=== PATIENT | female | born 1970 | race African-American/Black ===

== ENCOUNTER 2016-09-14 13:42 | Inpatient (IN) ==
[2016-09-14] MEDS ORDERED: ASPIRIN 325 MG TABLET PO STA (13:55)
[2016-09-14] MEDS ORDERED: NITROGLYCERIN 2% OINT 1 INCH/GM PACK TOP STA (13:55)
[2016-09-14] MEDS ORDERED: CLOPIDOGREL 75 MG TABLET PO STA (13:55)
--- NOTE | 2016-09-14 14:00 | Emergency Department Note ---
Arrival - Arrival Chief Complaint: Chest Pain Stated Complaint: cp ED Nursing Triage Note: Brought in per EMS with c/o mid-sternal chest pain onset prior to arrival while laying on couch. Describes as tightness. Denies shortness of breath or nausea. Reports had 4 stents placed 2 weeks ago at hospital in [place], [place]. Mode of Arrival: Stretcher Source: Patient Time Seen by Provider: 09/14/16 13:55 - History of Present Illness HPI Narrative: This 46-year-old black female presents with complaints of midsternal chest pain not associated with shortness of breath, nausea, vomiting, or diaphoresis. She was given 2 nitroglycerin in the field and is now without any pain. Of note she had a myocardial infarct 2 weeks ago at her home in [place] where she was hospitalized and had 4 stents placed. The events today occurred while she was visiting. She has no prior cardiac disease before 2 weeks ago. Notable since discharge from the hospital is increasing pedal edema but no instances of chest pain until today. Currently she appears medically stable Onset (ago): hour(s) (Patient presents 1 hour post onset of symptoms) Date of Last Menstrual Period: hyst Allergies/Adverse Reactions: Allergies Allergy/AdvReac Type Severity Reaction Status Date / Time levofloxacin [From Levaquin] Allergy Unknown/Unable Verified 09/14/16 13:55 to obtain Penicillins Allergy RASH Verified 07/09/14 08:36 Home Medications: Home Medications Medication Instructions Recorded Confirmed Type Insulin NPH Hum/Reg Insulin Hm 40 units SUBCUT BID 07/09/14 05/07/15 History [Novolin 70-30 100 Unit/ml Vial] Metformin HCl [Glumetza] 500 mg PO BID 07/09/14 05/07/15 History Review of System - Review of System 12 point system: reviewed and no additional remarkable complaints except as stated - Review of System Constitutional: Present: as per HPI Respiratory: Present: as per HPI Cardiovascular: Present: as per HPI Gastrointestinal: Present: as per HPI Medical,Surgical,& Family Hx - Medical History Cardio: History of: CHF, Hypertension, [place] (08/2016) Endocrine: History of: Diabetes Mellitus (IDDM), Dyslipidemia - Surgical History HEENT Surgeries: Surgical HX of: Eye Surgery (02/05/2013) Reproductive Surgeries: Surgical HX of;: Hysterectomy (2006) - Family History Family History: Reports;: Family Cancer, Family Heart Disease, Family Stroke - Social History Smoking Status: Never smoker Frequency of Alcohol Use: None Type of Drug Use: None Exam Physical Examination: GENERAL: Obese black female in no acute distress. HEENT: Normocephalic. No trauma. Moist mucous membranes. EOMI. PERRLA. ENT NML NECK: Supple. No adenopathy. CARDIAC: Regular. No murmurs. Heart rate 90 CHEST: Clear to auscultation. No respiratory distress. O2 sat 99% ABDOMEN: Soft. Nontender. Active bowel sounds. EXTREMITIES: No trauma. Normal ROM. 2+ pedal edema. SKIN: No diaphoresis. No rash. NEURO: Alert. Neuro intact. No focal deficits. Vital Signs: Vital Signs Temperature 97.5 F L 09/14/16 13:42 Pulse Rate 91 H 09/14/16 13:42 Respiratory Rate 18 09/14/16 13:55 Blood Pressure 124/73 09/14/16 13:42 O2 Sat by Pulse Oximetry 99 09/14/16 13:42 Course - Reevaluation(s) Reevaluation #1: Discussed with patient her findings which necessitate hospitalization here. - Consultations Consultation #1: Discussed with hospitalist service who will admit for further evaluation treatment. Results - Labs CBC & BMP: 09/14/16 14:26 09/14/16 14:26 Labs: I have reviewed the laboratory and noted the evidence of anemia as well as a bump in troponins and severely elevated BnP. - Impressions EKG: Sinus rhythm at 90 with normal [place] interval and QRS duration. Evidence of recent anterior WA noted with nonspecific ST changes. No acute injury pattern noted. - Diagnostic Findings Procedure: Chest x-ray: image reviewed by me, report reviewed by me ( Cardiomegaly and pulmonary edema) Disposition Clinical Impression: Abnormal cardiac enzymes, Congestive heart failure, Status post recent WA/stent Case discussed with: patient, patient's family Disposition: Still a Patient Condition: Guarded Time of Disposition: 15:35
[2016-09-14] MEDS ORDERED: NITROGLYCERIN 2% OINT 1 INCH/GM PACK TOP ONE (14:08)
[2016-09-14] MEDS ORDERED: ASPIRIN 325 MG TABLET ONE (14:08)
[2016-09-14] MEDS ORDERED: CLOPIDOGREL 75 MG TABLET ONE (14:08)
[2016-09-14] MEDS ORDERED: FUROSEMIDE 40 MG/4 ML VIAL IV STA (14:13)
--- NOTE | 2016-09-14 14:24 | XRay Report ---
Portable chest. Indication: Chest pain. Comparison: June 30, 2008. The heart is enlarged. It is increased from the previous. The pulmonary vasculature is prominent. There are bilateral basilar interstitial infiltrates and pleural effusions. No pneumothorax. No bony abnormality. Impression: Findings suggesting congestive heart failure. PROCEDURE INTERPRETED AT [facility] DEPARTMENT OF RADIOLOGY Final Report Signed by: Dr. Palak Aguilar
[2016-09-14 14:36] LABS: Basophils % 0.2 % (0.0-0.8); Eosinophils # 0.1 10*3/uL (0.0-0.87); Eosinophils % 0.6 % (0.00-10.9); Hemoglobin 8.7 GM/DL (12.0-16.0); Immature Granulocytes % 0.3 %; Immature Granulocytes Absolute 0.04 #; Lymphocytes # 2.5 10*3/uL (1.4-4.0); Lymphocytes % 20.9 % (21.3-54.2); Mean Corpuscular HGB Conc 33.5 GM/DL (32-36); Mean Corpuscular Hemoglobin 29 PG (27-34); Mean Corpuscular Volume 87.8 FL (87-102); Mean Platelet Volume 10.3 FL (9.6-12.0); Monocytes # 0.9 10*3/uL (0.11-0.8); Monocytes % 7.2 % (1.7-12.7); Neutrophils # 8.5 10*3/uL (1.4-7.4); Neutrophils % 70.8 % (38.7-73.9); Platelet Count 355 T/CUMM (130-400); Red Blood Count 2.96 MC/CUMM (3.8-5.5); Red Cell Distribution Width 14.6 % (9.3-17.3)
[2016-09-14 14:49] LABS: INR 1.1; PT Patient Result 11.8 SECS; Partial Thromboplastin Time 24.9 SECS (0-40)
[2016-09-14 14:56] LABS: Alanine Aminotransferase 31 U/L (13-56); Albumin 2.4 G/DL (3.4-5.0); Alkaline Phosphatase 239 U/L (45-117); Aspartate Amino Transferase 18 U/L (0-37); Blood Urea Nitrogen 8 MG/DL (7-18); Calcium 8.6 MG/DL (8.5-10.1); Glucose 135 MG/DL (74-106); Osmolality,Calculated 289.6 MOS/KG (273-304); Potassium 3.5 MMOL/L (3.5-5.1); Sodium 146 MMOL/L (136-145); Total Protein 5.6 G/DL (6.4-8.3)
[2016-09-14 14:56] LABS: Apearance,Urine CLEAR (Clear); Bacteria,Urine Few /HPF (Few); Bilirubin,Urine Negative (Negative); Blood, Urine Negative (Negative); Glucose,Urine (UA) Negative (Negative); Hyaline Casts,Urine 1 /LPF (0-3); Ketones,Urine Negative (Negative); Mucus,Urine Occasional /LPF (Occasional); Nitrite,Urine Negative (Negative); Protein,Urine 100 MG/DL; RBC,Urine 1 /HPF (0-4); Squamous Epithelial Cell,Urine Occasional /HPF (0-10); Urine Color Yellow (Yellow); Urine Specific Gravity 1.006 (1.001-1.035); Urine Urobilinogen < 2.0 EU/DL (0.2-1.0); WBC,Urine <1 /HPF (0-6)
[2016-09-14 15:00] LABS: Troponin I Only 0.137 NG/ML (0.00-0.045)
[2016-09-14 15:03] LABS: Barbiturates Screen,Urine Negative (Negative); Benzodiazepines Screen,Urine Negative (Negative); Cannabinoid Screen,Urine Negative (Negative); Opiate Screen,Urine Negative (Negative); Phencyclidine Screen,Urine Negative (Negative)
[2016-09-14] MEDS ORDERED: FUROSEMIDE 40 MG/4 ML VIAL ONE (15:29)
--- NOTE | 2016-09-14 16:22 | Hospitalist History & Physical ---
Assessment and Plan - Time spent with patient Time spent with patient: Greater than 30 minutes (38 minutes) (1) Acute CHF (congestive heart failure) Status: Acute Assessment and plan: Type of CHF unknown. Start Lasix. Obtain home meds and try to obtain recent outside medical records. Strict I and O, daily weights. TSH. Low sodium diet. Will also check LE dopplers to rule out DVT given recent trip, chest pain and recent immobilization. Current Visit: Yes (2) CAD (coronary artery disease) Problem details: with elevated troponin Status: Acute Assessment and plan: unsure if where her troponins were at her recent hospitalization. Cycle cardiac markers. Obtain old records to assess ECHO. Resume antiplatelet therapy. Would likely need to be on BB and statin. Check lipid panel. Current Visit: Yes Qualifiers: Coronary Disease-Associated Artery/Lesion type: unspecified vessel or lesion type [place] vs. transplanted heart: [place] heart (3) Recent myocardial infarction Status: Chronic Current Visit: Yes (4) DM2 (diabetes mellitus, type 2) Status: Chronic Assessment and plan: Resume home DM regimen except will hold metformin as may require further testing. Accuchecks ac,hs with I.S.S. ADA, cardiac diet. Current Visit: Yes Qualifiers: Diabetes mellitus complication status: without complication (5) Back pain Status: Acute Assessment and plan: Check CT thoracic and lumbar spine to r/o fracture with history of recent fall. Will also check pelvic xray. Pain control as needed. Current Visit: Yes (6) Debility Status: Acute Assessment and plan: PT/OT consult Current Visit: Yes (7) Anemia Status: Acute Assessment and plan: Likely anemia of chronic disease. Check anemia panel with Iron, TIBC, Ferritin, folic acid, vitamin B12 and retic count. Current Visit: Yes Qualifiers: Anemia type: unspecified type Qualified Code(s): D64.9 - Anemia, unspecified (8) Hypernatremia Status: Acute Assessment and plan: likely due to dehydration. Recheck. Limited free water replacement due to CHF hx. Current Visit: Yes History of Present Illness Chief complaint: Chest pain 1 day History of present illness: Ms. Martel is a 46 year old female with a history of CAD s/p MN and multiple stent placement, CHF exacerbation and recent intubation for respiratory failure due to pneumonia and CHF 2 weeks ago where she was treated at [facility], [place] and released yesterday who presents to the hospital with chest pain. Patient reports her chest pain started today while she was lying down at her mother's house. She describes the pain as a tightness in the middle of her chest that she rates 7 out of 10 that does not radiate. She reports that when she takes a deep breath the pain got worse in the middle of her chest but it was not positional, not associated with eating, not reproducible and not associated with movement. She does describe a dry cough but denies any fever. She denies any abdominal pain but admits that her appetite has been decreased. She reports that the chest pain was not associated with shortness of breath, nausea, or vomiting. She reports she did have some diaphoresis. She denies any palpitations, lightheadedness or dizziness. When the pain did not improve she decided she would come to the emergency room and proceeded to drive herself. In route, patient became very weak and she decided to call 911 who brought her to the emergency room for further evaluation and treatment. In route she received nitroglycerin under the tongue and oxygen and she said this did help the pain resolved. Patient states she has been compliant with her medications since hospitalization. On the way home she reports that she did not get out to move around and drove 2-1/ 2 hours straight. She complains mostly of pain between her shoulder blades worse on the right side lower back pain that radiates to both legs and generalized weakness. A 10 point review of systems was reviewed with the patient was otherwise unremarkable except for that listed in the HPI Home Medications Medication Instructions Recorded Confirmed Type Insulin NPH Hum/Reg Insulin Hm 40 units SUBCUT BID 07/09/14 05/07/15 History [Novolin 70-30 100 Unit/ml Vial] Metformin HCl [Glumetza] 500 mg PO BID 07/09/14 05/07/15 History Allergies Allergy/AdvReac Type Severity Reaction Status Date / Time levofloxacin [From Levaquin] Allergy Unknown/Unable Verified 09/14/16 13:55 to obtain Penicillins Allergy RASH Verified 07/09/14 08:36 Medical,Surgical,& Family Hx - Medical History Cardio: History of: CHF, CAD, Hypertension, [place] (08/2016) HEENT: History of: Eye Problem (Cataract) Endocrine: History of: Diabetes Mellitus (IDDM), Dyslipidemia Gastrointestinal: History of: GERD Musculoskeletal: History of: Musculoskeletal Problems (Right arm fracture remotely) - Surgical History Cardiac Surgeries: Sugical HX of: Cardiac Catheterization HEENT Surgeries: Surgical HX of: Eye Surgery (02/05/2013-left eye cataract extraction) Reproductive Surgeries: Surgical HX of;: Hysterectomy (2006) - Family History Family History: Reports;: Family Cancer, Family Diabetes, Family Heart Disease, Family Stroke - Social History Smoking Status: Never smoker Frequency of Alcohol Use: None Type of Drug Use: None Marital Status: Single Lives With:: Children Functional capacity: uses cane/walker - Constitutional Constitutional: Present: as per HPI Exam - Constitutional Vitals: Period Temp Pulse Resp BP Sys/Vizcarra Pulse Ox Last 24 Hr 97.5 F 88-91 18-20 119-145/72-90 99-100 Exam: GEN: Patient is awake alert and oriented 3 lying in the hospital bed weak but nontoxic no acute distress HEENT exam: reveals pupils are equal and reactive to light, extraocular muscles are intact, sclerae clear, conjunctive are pink, nares are patent no discharge or epistaxis noted. Oropharynx is clear no oral lesions or thrush. Neck is supple, with anterior neck fullness. No lymphadenopathy or thyromegaly appreciated. She is a pinhole opening near the base of her neck on the right. No JVD appreciated Cardiovascular: Regular rate and rhythm normal S1-S2 without any significant murmurs rubs or gallops Lungs are clear to auscultation bilaterally with good aeration diminished at the base. Nonlabored breathing noted. Abdomen is soft, nontender, protuberant, positive bowel sounds no organomegaly or masses appreciated Extremities she is warm and well-perfused no clubbing or cyanosis. She does have +2 +3 pitting edema of lower extremities bilaterally with tenderness to palpation. Back: Tenderness to palpation along the right scapula and along S5 S1 region and tenderness to palpation along the iliac crests bilaterally Results - Labs CBC & BMP: 09/14/16 14:26 09/14/16 14:26
[2016-09-14] MEDS ORDERED: ACETAMINOPHEN 325 MG TABLET PO PRN (17:42)
[2016-09-14] MEDS ORDERED: ONDANSETRON 4 MG/2 ML VIAL IV PRN (17:42)
[2016-09-14] MEDS ORDERED: DEXTROSE 50% 25 GM/50 ML VIAL IV PRN (17:42)
[2016-09-14] MEDS ORDERED: DOCUSATE SODIUM 100 MG CAPSULE PO PRN (17:42)
[2016-09-14] MEDS ORDERED: GLUCAGON 1 MG VIAL IM PRN (17:42)
[2016-09-14] MEDS: INSULIN LISPRO 100 UNIT/ML SUBCUT SCH ×2 (17:49→20:35)
--- NOTE | 2016-09-14 18:47 | CT Report ---
History is fall with upper back injury and pain Axial images obtained with 2-D multiplanar reconstruction images also stored and interpreted Alignment in the lateral plane is normal thoracic spine No acute thoracic spine fracture seen. Vessel channels present in multiple areas. There are minimal degenerative changes. There are bilateral pleural effusions with parenchymal opacities in the visualized left lung field. Impression: 1. Bilateral pleural effusions with left lung infiltrate partially visualized 2. Mild degenerative changes The CT exam was performed using one or more of the following dose reduction techniques: Automated exposure control, adjustment of the mA and/or kV according to patient size, or use of iterative reconstruction technique. PROCEDURE INTERPRETED AT [facility] DEPARTMENT OF RADIOLOGY Final Report Signed by: Dr. Zoe Aguilar
--- NOTE | 2016-09-14 18:47 | XRay Report ---
History is fall and pelvic injury and pain No acute fracture seen. Right pelvic phlebolith noted. Mild degenerative changes in the hips noted Impression: No acute fracture seen PROCEDURE INTERPRETED AT [facility] DEPARTMENT OF RADIOLOGY Final Report Signed by: Dr. Zoe Aguilar
--- NOTE | 2016-09-14 18:58 | Ultrasound Report ---
History is chest pain Bilateral lower extremity venous Doppler performed with grayscale, spectral Doppler, and color flow analysis performed and interpreted. No evidence of echogenic, noncompressible thrombus seen in either common femoral, superficial femoral, popliteal, or saphenous veins Impression: No evidence of DVT seen in either lower extremity. PROCEDURE INTERPRETED AT [facility] DEPARTMENT OF RADIOLOGY Final Report Signed by: Dr. Zoe Aguilar
[2016-09-14] MEDS: ENOXAPARIN 100 MG/ML SYRINGE SUBCUT SCH (20:33)
[2016-09-14 20:48] LABS: Basophils % 0.2 % (0.0-0.8); Eosinophils # 0.1 10*3/uL (0.0-0.87); Eosinophils % 0.8 % (0.00-10.9); Hematocrit 28.3 VOL% (35.7-47.0); Hemoglobin 9.2 GM/DL (12.0-16.0); Immature Granulocytes % 0.4 %; Immature Granulocytes Absolute 0.05 #; Lymphocytes # 2.2 10*3/uL (1.4-4.0); Lymphocytes % 18.5 % (21.3-54.2); Mean Corpuscular HGB Conc 32.5 GM/DL (32-36); Mean Corpuscular Hemoglobin 29 PG (27-34); Mean Corpuscular Volume 90.1 FL (87-102); Mean Platelet Volume 10.8 FL (9.6-12.0); Monocytes # 0.9 10*3/uL (0.11-0.8); Monocytes % 7.9 % (1.7-12.7); Neutrophils # 8.5 10*3/uL (1.4-7.4); Neutrophils % 72.2 % (38.7-73.9); Platelet Count 353 T/CUMM (130-400); Red Blood Count 3.14 MC/CUMM (3.8-5.5); Red Cell Distribution Width 14.8 % (9.3-17.3); White Blood Count 11.8 T/CUMM (4-12)
[2016-09-14 21:27] LABS: Troponin I Only 0.122 NG/ML (0.00-0.045)
[2016-09-14 21:28] LABS: Risk Ratio 3.06; VLDL CHOLESTEROL 19.4 MG/DL
[2016-09-14 21:38] LABS: Folate 10.2 NG/ML (5.4-24.0); Vitamin B12 467 PG/ML (211-911)
[2016-09-14 21:41] LABS: Sedimentation Rate-Westergren 97 MM/HR (0-20)
[2016-09-15 00:42] LABS: Troponin I Only 0.108 NG/ML (0.00-0.045)
[2016-09-15 04:29] LABS: Basophils % 0.2 % (0.0-0.8); Eosinophils # 0.1 10*3/uL (0.0-0.87); Eosinophils % 0.7 % (0.00-10.9); Hematocrit 25.4 VOL% (35.7-47.0); Hemoglobin 8.3 GM/DL (12.0-16.0); Immature Granulocytes % 0.6 %; Immature Granulocytes Absolute 0.07 #; Lymphocytes # 3.2 10*3/uL (1.4-4.0); Lymphocytes % 25.6 % (21.3-54.2); Mean Corpuscular HGB Conc 32.7 GM/DL (32-36); Mean Corpuscular Hemoglobin 29 PG (27-34); Mean Corpuscular Volume 87.9 FL (87-102); Mean Platelet Volume 10.9 FL (9.6-12.0); Monocytes # 0.9 10*3/uL (0.11-0.8); Monocytes % 7.1 % (1.7-12.7); Neutrophils # 8.2 10*3/uL (1.4-7.4); Neutrophils % 65.8 % (38.7-73.9); Platelet Count 351 T/CUMM (130-400); Red Blood Count 2.89 MC/CUMM (3.8-5.5); Red Cell Distribution Width 14.6 % (9.3-17.3); White Blood Count 12.5 T/CUMM (4-12)
[2016-09-15 04:57] LABS: Calcium 8.3 MG/DL (8.5-10.1); Osmolality,Calculated 287.8 MOS/KG (273-304); Potassium 3.5 MMOL/L (3.5-5.1)
[2016-09-15 05:07] LABS: Free T4 (Free Thyroxine) 1.39 NG/DL (0.76-1.46); Magnesium 1.4 MG/DL (1.8-2.4); Thyroid Stimulating Hormone 3.64 uIU/ml (0.358-3.74)
--- NOTE | 2016-09-15 07:36 | Cardiology Consult Note ---
Assessment and Plan (1) History of percutaneous coronary intervention Status: Acute Assessment and plan: According to the patient she received 4 stents 2 weeks ago and now is with chest discomfort relieved with sublingual nitroglycerin. I think this approach that is safest for the patient would be for us to switch her from Plavix to Brilinta to be certain that she is not resistant to Plavix. The other would be that we have records from [place] sent here and then repeat her cardiac evaluation here. I think that that would be the best approach. Current Visit: Yes (2) CAD (coronary artery disease) Problem details: with elevated troponin Status: Acute Current Visit: Yes Qualifiers: Coronary Disease-Associated Artery/Lesion type: unspecified vessel or lesion type [place] vs. transplanted heart: [place] heart (3) DM2 (diabetes mellitus, type 2) Status: Chronic Current Visit: Yes Qualifiers: Diabetes mellitus complication status: without complication (4) Recent myocardial infarction Status: Chronic Assessment and plan: We are awaiting records to review Current Visit: Yes History of Present Illness - Data of Consult Patient: new to practice - Consult Narrative Reason for consult: Chest pain in the patient who received multiple stents 2 weeks ago in [facility] History of present illness: Ms. Martel is a 46 year old female this is a 46-year-old lady who has a history of type 2 diabetes chronic anemia who apparently underwent placement of 4 intracoronary stents in [facility] 2 weeks ago. She was visiting family here began to complain of chest pain and presented to the emergency room for evaluation. She says the pain this time is somewhat different than the pain she had initially. Her troponin showed initially to be 0.18 and fell to 0.10 and this may be the natural progression of her prior myocardial infarction is not a new event although it is difficult to tell that with certainty. She had pain relief with sublingual nitroglycerin in the emergency room and has had no further chest pain since admission here. She had been on Plavix. She states that she has been taking her medications. Her EKG shows what appears to be an old anterior myocardial infarction with no acute change noted. She has had no palpitations. She has had some presyncope but no brandi syncope. She is admitted now to rule out myocardial infarction and I think the best approach will be that we reevaluate her coronary anatomy prior to having her transferred to [place]. CC: Norma Gonsalez MD - Home Medications and Allergies Home Medications: Home Medications Medication Instructions Recorded Confirmed Type Insulin NPH Hum/Reg Insulin Hm 30 units SUBCUT BID 07/09/14 09/14/16 History [Novolin 70-30 100 Unit/ml Vial] Carvedilol 25 mg PO BID 09/14/16 09/14/16 History Clopidogrel [Plavix] 75 mg PO DAILY 09/14/16 09/14/16 History Furosemide Tab [Lasix Tab] 40 mg PO DAILY 09/14/16 09/14/16 History Insulin Regular, Human [NovoLIN R] 10 unit SUBCUT TIDAC MDD 09/14/16 09/14/16 History 90UNITS/24H Lisinopril 40 mg PO DAILY 09/14/16 09/14/16 History Simvastatin [Zocor] 40 mg PO BEDTIME 09/14/16 09/14/16 History Allergies/Adverse Reactions: Allergies Allergy/AdvReac Type Severity Reaction Status Date / Time levofloxacin [From Levaquin] Allergy Unknown/Unable Verified 09/14/16 13:55 to obtain Penicillins Allergy RASH Verified 07/09/14 08:36 Medical,Surgical,& Family Hx - Medical History Cardio: History of: CHF, CAD, Hypertension, [place] (08/2016) Neurology: History of: Peripheral Neuropathy HEENT: History of: Eye Problem (Cataract) Endocrine: History of: Diabetes Mellitus (IDDM), Dyslipidemia Gastrointestinal: History of: GERD Musculoskeletal: History of: Musculoskeletal Problems (Right arm fracture remotely) - Surgical History Cardiac Surgeries: Sugical HX of: Cardiac Catheterization (stents X4) HEENT Surgeries: Surgical HX of: Eye Surgery (02/05/2013-left eye cataract extraction) Abdominal Surgeries: Surgical HX of: Cholecystectomy, EGD Reproductive Surgeries: Surgical HX of;: Hysterectomy (2006) - Family History Family History: Reports;: Family Cancer, Family Diabetes, Family Heart Disease, Family Stroke - Social History Smoking Status: Never smoker Frequency of Alcohol Use: None Type of Drug Use: None Physical Examination Vital Signs Temp Pulse Resp BP Pulse Ox 97.5 F L 91 H 20 124/73 99 09/14/16 13:42 09/14/16 13:42 09/14/16 13:42 09/14/16 13:42 09/14/16 13:42 Other: Physical examination: General: The patient is awake and alert and oriented -3. Mood and affect are normal. HEENT: Normocephalic, sclera are clear there are no lid xanthelasmas noted. Oral mucosa is free of cyanosis or pallor. Neck: The neck is supple without JVD. Carotid upstrokes are normal volume and amplitude. There is no audible bruit. There is no palpable thyroid. Trachea is midline. Chest: Lungs: The patient is comfortable at rest without intercostal retractions or abdominal breathing. There are no adventitial sounds rales rubs rhonchi or wheezes noted. Cardiovascular: The PMI is nondisplaced. No palpable thrill S3 or S4. There is a regular rate and rhythm with no murmur rub or gallop noted. Dorsalis pedis posterior tibial and femoral pulses are 2+ and equal bilaterally. Abdomen: Abdomen is soft and nontender with normal active bowel sounds. There is no palpable mass or organomegaly noted. There is no midline bruit. Extremities exam: There is no cyanosis clubbing or edema. Skin: Skin is warm and dry without ecchymosis or urticaria or skin rash. There are no palpable nodules. Musculoskeletal: There is no kyphosis or scoliosis noted. Result/EKG - Labs CBC & BMP: 09/15/16 03:29 09/15/16 03:29 Labs: Laboratory Results - last 24 hr 09/14/16 09/14/16 09/14/16 14:26 14:26 14:26 WBC RBC Hgb Hct MCV MCH MCHC RDW Plt Count MPV Neut % (Auto) Lymph % (Auto) [place] % (Auto) Eos % (Auto) Baso % (Auto) Neut # (Auto) Lymph # (Auto) [place] # (Auto) Eos # (Auto) Baso # (Auto) Immature Gran % Nucleated RBC % Immature Gran # Nucleated RBCs # ESR Westergren Absolute Retic Percent Retic Retic Hgb Equivalent INR 1.1 PT Patient/Control Mix 11.8 Circ Anticoag PTT 24.9 Sodium 146 H Potassium 3.5 Chloride 110 H Carbon Dioxide 25 Anion Gap 14.5 BUN 8 Creatinine 0.70 GFR Calculation 147 BUN/Creatinine Ratio 11.00 Glucose 135 H POC Glucose Calculated Osmolality 289.6 Calcium 8.6 Magnesium Iron TIBC % Saturation Ferritin Total Bilirubin 0.40 AST 18 ALT 31 Alkaline Phosphatase 239 H Total Creatine Kinase 165 CK-MB (CK-2) 2.7 Troponin I 0.137 H B-Natriuretic Peptide 1163 H Total Protein 5.6 L Albumin 2.4 L Globulin 3.2 Albumin/Globulin Ratio 0.7 L Triglycerides Cholesterol LDL Cholesterol VLDL Cholesterol HDL Cholesterol Heart Disease Risk Ratio Vitamin B12 Folate Free T4 TSH 3rd Generation Urine Color Urine Appearance Urine pH Ur Specific [place] Urine Protein Urine Glucose (UA) Urine Ketones Urine Blood Urine Nitrate Urine Bilirubin Urine Urobilinogen Urine Leukocytes Urine RBC Urine WBC Ur Squamous Epith Cells Urine Bacteria Hyaline Casts Urine Mucus Ur Culture Indicated? Urine Opiates Screen Ur Barbiturates Screen Ur Phencyclidine Scrn U Amphetamine/Methamph U Benzodiazepines Scrn U Cocaine Metab Screen U Cannabinoids Screen 09/14/16 09/14/16 09/14/16 14:26 14:49 14:49 WBC 12.0 RBC 2.96 L Hgb 8.7 L Hct 26.0 L MCV 87.8 MCH 29 MCHC 33.5 RDW 14.6 Plt Count 355 MPV 10.3 Neut % (Auto) 70.8 Lymph % (Auto) 20.9 L [place]ike % (Auto) 7.2 Eos % (Auto) 0.6 Baso % (Auto) 0.2 Neut # (Auto) 8.5 H Lymph # (Auto) 2.5 Pike # (Auto) 0.9 H Eos # (Auto) 0.1 Baso # (Auto) 0.0 Immature Gran % 0.3 Nucleated RBC % 0.0 Immature Gran # 0.04 Nucleated RBCs # 0.00 ESR Westergren Absolute Retic Percent Retic Retic Hgb Equivalent INR PT Patient/Control Mix Circ Anticoag PTT Sodium Potassium Chloride Carbon Dioxide Anion Gap BUN Creatinine GFR Calculation BUN/Creatinine Ratio Glucose POC Glucose Calculated Osmolality Calcium Magnesium Iron TIBC % Saturation Ferritin Total Bilirubin AST ALT Alkaline Phosphatase Total Creatine Kinase CK-MB (CK-2) Troponin I B-Natriuretic Peptide Total Protein Albumin Globulin Albumin/Globulin Ratio Triglycerides Cholesterol LDL Cholesterol VLDL Cholesterol HDL Cholesterol Heart Disease Risk Ratio Vitamin B12 Folate Free T4 TSH 3rd Generation Urine Color Yellow Urine Appearance Clear Urine pH 5.0 Ur Specific [place] 1.006 Urine Protein 100 Urine Glucose (UA) Negative Urine Ketones Negative Urine Blood Negative Urine Nitrate Negative Urine Bilirubin Negative Urine Urobilinogen < 2.0 H Urine Leukocytes Negative Urine RBC 1 Urine WBC <1 Ur Squamous Epith Cells Occasional Urine Bacteria Few Hyaline Casts 1 Urine Mucus Occasional Ur Culture Indicated? Not indicated Urine Opiates Screen Negative Ur Barbiturates Screen Negative Ur Phencyclidine Scrn Negative U Amphetamine/Methamph Negative U Benzodiazepines Scrn Negative U Cocaine Metab Screen Negative U Cannabinoids Screen Negative 09/14/16 09/14/16 09/14/16 20:00 20:00 20:00 WBC 11.8 RBC 3.14 L Hgb 9.2 L Hct 28.3 L MCV 90.1 MCH 29 MCHC 32.5 RDW 14.8 Plt Count 353 MPV 10.8 Neut % (Auto) 72.2 Lymph % (Auto) 18.5 L Pike % (Auto) 7.9 Eos % (Auto) 0.8 Baso % (Auto) 0.2 Neut # (Auto) 8.5 H Lymph # (Auto) 2.2 Pike # (Auto) 0.9 H Eos # (Auto) 0.1 Baso # (Auto) 0.0 Immature Gran % 0.4 Nucleated RBC % 0.0 Immature Gran # 0.05 Nucleated RBCs # 0.00 ESR Westergren 97 H Absolute Retic 0.1 Percent Retic 3.4 H Retic Hgb Equivalent 30.3 INR PT Patient/Control Mix Circ Anticoag PTT Sodium Potassium Chloride Carbon Dioxide Anion Gap BUN Creatinine GFR Calculation BUN/Creatinine Ratio Glucose POC Glucose Calculated Osmolality Calcium Magnesium Iron 48 L TIBC 229 L % Saturation 21.0 Ferritin 178.0 Total Bilirubin AST ALT Alkaline Phosphatase Total Creatine Kinase CK-MB (CK-2) Troponin I B-Natriuretic Peptide Total Protein Albumin Globulin Albumin/Globulin Ratio Triglycerides 97 Cholesterol 150 LDL Cholesterol 79.0 VLDL Cholesterol 19.4 HDL Cholesterol 49 Heart Disease Risk Ratio 3.06 Vitamin B12 467 Folate 10.2 Free T4 TSH 3rd Generation Urine Color Urine Appearance Urine pH Ur Specific [place] Urine Protein Urine Glucose (UA) Urine Ketones Urine Blood Urine Nitrate Urine Bilirubin Urine Urobilinogen Urine Leukocytes Urine RBC Urine WBC Ur Squamous Epith Cells Urine Bacteria Hyaline Casts Urine Mucus Ur Culture Indicated? Urine Opiates Screen Ur Barbiturates Screen Ur Phencyclidine Scrn U Amphetamine/Methamph U Benzodiazepines Scrn U Cocaine Metab Screen U Cannabinoids Screen 09/14/16 09/14/16 09/14/16 20:00 20:00 23:45 WBC RBC Hgb Hct MCV MCH MCHC RDW Plt Count MPV Neut % (Auto) Lymph % (Auto) [place] % (Auto) Eos % (Auto) Baso % (Auto) Neut # (Auto) Lymph # (Auto) [place] # (Auto) Eos # (Auto) Baso # (Auto) Immature Gran % Nucleated RBC % Immature Gran # Nucleated RBCs # ESR Westergren Absolute Retic Percent Retic Retic Hgb Equivalent INR PT Patient/Control Mix Circ Anticoag PTT Sodium Potassium Chloride Carbon Dioxide Anion Gap BUN Creatinine GFR Calculation BUN/Creatinine Ratio Glucose POC Glucose 148 H Calculated Osmolality Calcium Magnesium Iron TIBC % Saturation Ferritin Total Bilirubin AST ALT Alkaline Phosphatase Total Creatine Kinase 157 128 CK-MB (CK-2) 2.5 1.9 Troponin I 0.122 H 0.108 H B-Natriuretic Peptide Total Protein Albumin Globulin Albumin/Globulin Ratio Triglycerides Cholesterol LDL Cholesterol VLDL Cholesterol HDL Cholesterol Heart Disease Risk Ratio Vitamin B12 Folate Free T4 TSH 3rd Generation Urine Color Urine Appearance Urine pH Ur Specific [place] Urine Protein Urine Glucose (UA) Urine Ketones Urine Blood Urine Nitrate Urine Bilirubin Urine Urobilinogen Urine Leukocytes Urine RBC Urine WBC Ur Squamous Epith Cells Urine Bacteria Hyaline Casts Urine Mucus Ur Culture Indicated? Urine Opiates Screen Ur Barbiturates Screen Ur Phencyclidine Scrn U Amphetamine/Methamph U Benzodiazepines Scrn U Cocaine Metab Screen U Cannabinoids Screen 09/15/16 09/15/16 09/15/16 03:29 03:29 03:29 WBC 12.5 H RBC 2.89 L Hgb 8.3 L Hct 25.4 L MCV 87.9 MCH 29 MCHC 32.7 RDW 14.6 Plt Count 351 MPV 10.9 Neut % (Auto) 65.8 Lymph % (Auto) 25.6 Pike % (Auto) 7.1 Eos % (Auto) 0.7 Baso % (Auto) 0.2 Neut # (Auto) 8.2 H Lymph # (Auto) 3.2 P[place] # (Auto) 0.9 H Eos # (Auto) 0.1 Baso # (Auto) 0.0 Immature Gran % 0.6 Nucleated RBC % 0.0 Immature Gran # 0.07 Nucleated RBCs # 0.00 ESR Westergren Absolute Retic Percent Retic Retic Hgb Equivalent INR PT Patient/Control Mix Circ Anticoag PTT Sodium 144 Potassium 3.5 Chloride 107 Carbon Dioxide 28 Anion Gap 12.5 BUN 11 Creatinine 0.80 GFR Calculation 125 BUN/Creatinine Ratio 13.00 Glucose 151 H POC Glucose Calculated Osmolality 287.8 Calcium 8.3 L Magnesium 1.4 L Iron TIBC % Saturation Ferritin Total Bilirubin AST ALT Alkaline Phosphatase Total Creatine Kinase CK-MB (CK-2) Troponin I B-Natriuretic Peptide Total Protein Albumin Globulin Albumin/Globulin Ratio Triglycerides Cholesterol LDL Cholesterol VLDL Cholesterol HDL Cholesterol Heart Disease Risk Ratio Vitamin B12 Folate Free T4 1.39 TSH 3rd Generation 3.640 Urine Color Urine Appearance Urine pH Ur Specific [place] Urine Protein Urine Glucose (UA) Urine Ketones Urine Blood Urine Nitrate Urine Bilirubin Urine Urobilinogen Urine Leukocytes Urine RBC Urine WBC Ur Squamous Epith Cells Urine Bacteria Hyaline Casts Urine Mucus Ur Culture Indicated? Urine Opiates Screen Ur Barbiturates Screen Ur Phencyclidine Scrn U Amphetamine/Methamph U Benzodiazepines Scrn U Cocaine Metab Screen U Cannabinoids Screen 09/15/16 03:29 WBC RBC Hgb Hct MCV MCH MCHC RDW Plt Count MPV Neut % (Auto) Lymph % (Auto) [place] % (Auto) Eos % (Auto) Baso % (Auto) Neut # (Auto) Lymph # (Auto) [place] # (Auto) Eos # (Auto) Baso # (Auto) Immature Gran % Nucleated RBC % Immature Gran # Nucleated RBCs # ESR Westergren Absolute Retic Percent Retic Retic Hgb Equivalent INR PT Patient/Control Mix Circ Anticoag PTT Sodium Potassium Chloride Carbon Dioxide Anion Gap BUN Creatinine GFR Calculation BUN/Creatinine Ratio Glucose POC Glucose Calculated Osmolality Calcium Magnesium Iron TIBC % Saturation Ferritin Total Bilirubin AST ALT Alkaline Phosphatase Total Creatine Kinase CK-MB (CK-2) Troponin I B-Natriuretic Peptide 721 H Total Protein Albumin Globulin Albumin/Globulin Ratio Triglycerides Cholesterol LDL Cholesterol VLDL Cholesterol HDL Cholesterol Heart Disease Risk Ratio Vitamin B12 Folate Free T4 TSH 3rd Generation Urine Color Urine Appearance Urine pH Ur Specific [place] Urine Protein Urine Glucose (UA) Urine Ketones Urine Blood Urine Nitrate Urine Bilirubin Urine Urobilinogen Urine Leukocytes Urine RBC Urine WBC Ur Squamous Epith Cells Urine Bacteria Hyaline Casts Urine Mucus Ur Culture Indicated? Urine Opiates Screen Ur Barbiturates Screen Ur Phencyclidine Scrn U Amphetamine/Methamph U Benzodiazepines Scrn U Cocaine Metab Screen U Cannabinoids Screen - EKG EKG results: interpreted by me (Sinus rhythm with what appears to be an old anterior myocardial infarction)
[2016-09-15] MEDS ORDERED: POTASSIUM CHLORIDE RIDER 10 MEQ in PREMIX 1 EACH IV PRN (07:41)
[2016-09-15] MEDS ORDERED: MAGNESIUM SULF RIDER 2 GM in PREMIX 1 EACH IV PRN (07:41)
--- NOTE | 2016-09-15 08:15 | EKG Report ---
Stationary ECG Study [facility] Test Date: 09/15/2016 8:14:44 AM Pat Name: RICHIE LOMAX Department: Room: 287 Gender: F [place]: : 1970 Requested by: Zachery Conklin Order Number: [id number] Reading MD: IRENE CASILLAS Intervals [place] Rate: 97 P: 62 [place]: 165 QRS: -11 QRSD: 96 T: -60 QT: 347 QTc: 402 Interpretive Statements SINUS RHYTHM POSSIBLE ANTERIOR MYOCARDIAL INFARCTION, OF INDETERMINATE AGE Electronically Signed On 09-16-16 10:35:37 CDT by IRENE CASILLAS [email or web address]
--- NOTE | 2016-09-15 08:21 | EKG Report ---
Stationary ECG Study [facility] ER Test Date: 09/14/2016 1:49:43 PM Pat Name: RICHIE LOMAX Department: Room: 287 Gender: F Medical Dir: : 1970 Requested by: Brian Arrington Order Number: [id number] Reading MD: IRENE CASILLAS Intervals [place] Rate: 91 P: 61 [place]: 164 QRS: -22 QRSD: 97 T: 180 QT: 346 QTc: 395 Interpretive Statements SINUS RHYTHM LOW QRS VOLTAGE IN PRECORDIAL LEADS POSSIBLE ANTERIOR MYOCARDIAL INFARCTION, OF INDETERMINATE AGE Electronically Signed On 09-16-16 08:26:55 CDT by IRENE CASILLAS [email or web address]
[2016-09-15] MEDS ORDERED: CLOPIDOGREL 75 MG TABLET PO SCH (09:00)
[2016-09-15] MEDS: SODIUM CHLORIDE 0.9% 1,000 ML IV SCH ×2 (09:26→17:51)
[2016-09-15] MEDS: INSULIN LISPRO 100 UNIT/ML SUBCUT SCH ×4 (09:34→21:05)
[2016-09-15] MEDS: ATORVASTATIN 40 MG TABLET PO SCH (09:52)
[2016-09-15] MEDS: FUROSEMIDE 40 MG/4 ML VIAL IV SCH ×2 (09:52→16:44)
[2016-09-15] MEDS: PANTOPRAZOLE 40 MG TABLET PO SCH (09:53)
[2016-09-15] MEDS: ASPIRIN EC 81 MG TABLET PO SCH (09:53)
[2016-09-15] MEDS: TICAGRELOR 90 MG TABLET PO SCH ×2 (09:53→21:05)
[2016-09-15] MEDS: METOPROLOL TARTRATE 25 MG TABLET PO SCH ×2 (09:53→21:05)
[2016-09-15] MEDS: ENOXAPARIN 100 MG/ML SYRINGE SUBCUT SCH ×2 (09:54→21:05)
--- NOTE | 2016-09-15 12:59 | Hospitalist Progress Note ---
Assessment and Plan (1) Acute CHF (congestive heart failure) Status: Acute Assessment and plan: Type of CHF unknown. Start Lasix. Obtain home meds and try to obtain recent outside medical records. Strict I and O, daily weights. TSH. Low sodium diet. Will also check LE dopplers to rule out DVT given recent trip, chest pain and recent immobilization. Current Visit: Yes (2) CAD (coronary artery disease) Problem details: with elevated troponin Status: Acute Assessment and plan: unsure if where her troponins were at her recent hospitalization. Cycle cardiac markers. Obtain old records to assess ECHO. Resume antiplatelet therapy. Would likely need to be on BB and statin. Check lipid panel. Current Visit: Yes Qualifiers: Coronary Disease-Associated Artery/Lesion type: unspecified vessel or lesion type [place] vs. transplanted heart: [place] heart (3) Recent myocardial infarction Status: Chronic Current Visit: Yes (4) DM2 (diabetes mellitus, type 2) Status: Chronic Assessment and plan: Resume home DM regimen except will hold metformin as may require further testing. Accuchecks ac,hs with I.S.S. ADA, cardiac diet. Current Visit: Yes Qualifiers: Diabetes mellitus complication status: without complication (5) Back pain Status: Acute Assessment and plan: Check CT thoracic and lumbar spine to r/o fracture with history of recent fall. Will also check pelvic xray. Pain control as needed. Current Visit: Yes (6) Debility Status: Acute Assessment and plan: PT/OT consult Current Visit: Yes (7) Anemia Status: Acute Assessment and plan: Likely anemia of chronic disease. Check anemia panel with Iron, TIBC, Ferritin, folic acid, vitamin B12 and retic count. Current Visit: Yes Qualifiers: Anemia type: unspecified type Qualified Code(s): D64.9 - Anemia, unspecified (8) Hypernatremia Status: Acute Assessment and plan: likely due to dehydration. Recheck. Limited free water replacement due to CHF hx. Current Visit: Yes Hospitalist: Subjective Interval history: Patient reports back pain and lower extremity pain is better today. She denies any chest pain. No fever. No cough. Lower extremity swelling is much improved per mother. Tolerating p.o. Exam - Constitutional Vitals: Period Temp Pulse Resp BP Sys/Vizcarra Pulse Ox Last 24 Hr 97.3 F-99.1 F 62-99 18-20 113-179/62-90 93-100 Exam: GEN: Patient is awake alert and oriented 3 lying in the hospital bed no acute distress HEENT exam: sclerae clear, Oropharynx shows moist mucous membranes. Neck is supple, with anterior neck fullness. No lymphadenopathy or thyromegaly appreciated. She is a pinhole opening near the base of her neck on the right without surrounding erythema or expressible discharge. No JVD appreciated Cardiovascular: Regular rate and rhythm normal S1-S2 without any significant murmurs rubs or gallops Lungs are clear to auscultation bilaterally with good aeration diminished at the base. Nonlabored breathing noted. Abdomen is soft, nontender, protuberant, positive bowel sounds no organomegaly or masses appreciated Extremities she is warm and well-perfused no clubbing or cyanosis. She does have trace edema of lower extremities bilaterally with tenderness to palpation. Results - Labs CBC & BMP: 09/15/16 03:29 09/15/16 03:29 - Impressions (1) Acute CHF (congestive heart failure) suspected systolic with bilateral pleural effusions Status: Acute Assessment and plan: Type of CHF unknown. Continue Lasix IV. On beta-bryan and losartan. Awaiting outside medical records. Strict I and O, daily weights. TSH normal. Low sodium diet. LE dopplers are negative for DVT. Current Visit: Yes (2) CAD (coronary artery disease) Problem details: with elevated troponin Status: Acute Assessment and plan: Unsure if where her troponins were at her recent hospitalization. Cardiac markers decreasing. Awaiting outside records to assess ECHO. Continue antiplatelet therapy. BB and statin. Check lipid panel. Current Visit: Yes Qualifiers: Coronary Disease-Associated Artery/Lesion type: unspecified vessel or lesion type [place] vs. transplanted heart: [place] heart (3) Recent myocardial infarction Status: Chronic Current Visit: Yes (4) DM2 (diabetes mellitus, type 2) Status: Chronic Assessment and plan: Continue home DM regimen except will hold metformin as may require further testing. Accuchecks ac,hs with I.S.S. ADA, cardiac diet. Current Visit: Yes Qualifiers: Diabetes mellitus complication status: without complication (5) Back pain Status: Acute Assessment and plan: CT thoracic spine show pleural effusions but no acute fractures. Evidence of degenerative joint disease. CT lumbar spine pending. Pelvic xray is negative for fracture. Pain control as needed. PT/OT Current Visit: Yes (6) Debility Status: Acute Assessment and plan: PT/OT consult Current Visit: Yes (7) Anemia of chronic disease Status: Acute Assessment and plan: Likely anemia of chronic disease. Anemia panel with Iron, TIBC, Ferritin, folic acid, vitamin B12 and retic count reviewed. Probably can start on vitamin B12 supplementation at discharge. Current Visit: Yes Qualifiers: Anemia type: unspecified type Qualified Code(s): D64.9 - Anemia, unspecified (8) Hypernatremia-resolved Status: Acute Assessment and plan: likely due to dehydration. Recheck. Limited free water replacement due to CHF hx. Current Visit: Yes DVT prophylaxis-TIFFANIE hernandez Discussed with patient and mother. All questions answered. I will be away several days. 1 of my associates will follow in my absence.
[2016-09-15] MEDS: LOSARTAN 25 MG TABLET PO SCH (21:05)
[2016-09-16] MEDS ORDERED: FUROSEMIDE 40 MG/4 ML VIAL IV ONE (03:56)
[2016-09-16 04:01] LABS: Basophils % 0.4 % (0.0-0.8); Eosinophils # 0.1 10*3/uL (0.0-0.87); Eosinophils % 0.7 % (0.00-10.9); Hematocrit 27.8 VOL% (35.7-47.0); Hemoglobin 9.3 GM/DL (12.0-16.0); Immature Granulocytes % 0.5 %; Immature Granulocytes Absolute 0.06 #; Lymphocytes # 2.2 10*3/uL (1.4-4.0); Lymphocytes % 19.8 % (21.3-54.2); Mean Corpuscular HGB Conc 33.5 GM/DL (32-36); Mean Corpuscular Hemoglobin 29 PG (27-34); Mean Corpuscular Volume 87.4 FL (87-102); Monocytes % 9.2 % (1.7-12.7); Neutrophils # 7.8 10*3/uL (1.4-7.4); Neutrophils % 69.4 % (38.7-73.9); Platelet Count 374 T/CUMM (130-400); Red Blood Count 3.18 MC/CUMM (3.8-5.5); Red Cell Distribution Width 14.6 % (9.3-17.3); White Blood Count 11.2 T/CUMM (4-12)
[2016-09-16 04:20] LABS: Calcium 8.7 MG/DL (8.5-10.1); Osmolality,Calculated 293.7 MOS/KG (273-304); Potassium 3.6 MMOL/L (3.5-5.1)
[2016-09-16 06:13] LABS: Hemoglobin A1 (Alkaline) 97.6 % (96.5-98.5); Hemoglobin A2 (Alkaline) 2.4 % (1.5-3.5)
[2016-09-16] MEDS: SODIUM CHLORIDE 0.9% 1,000 ML IV SCH (07:20)
--- NOTE | 2016-09-16 07:49 | EKG Report ---
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
[2016-09-16] MEDS ORDERED: diphenhydrAMINE CAP 25 MG CAPSULE PO ONE (08:00)
[2016-09-16] MEDS ORDERED: DIAZEPAM 5 MG TABLET PO ONE (08:00)
[2016-09-16] MEDS: FUROSEMIDE 40 MG/4 ML VIAL IV SCH ×2 (08:43→16:43)
[2016-09-16] MEDS: INSULIN LISPRO 100 UNIT/ML SUBCUT SCH ×4 (08:49→20:51)
--- NOTE | 2016-09-16 09:00 | CT Report ---
Exam: CT lumbar spine without contrast Date: September 16, 2016 Comparison: CT thorax September 14, 2016 Reason: Back pain, lower extremity weakness Technique: Axial images of the lumbar spine were obtained without the use of contrast. Sagittal reformatted images were also acquired. Total DLP is 1353.8 mGy*cm. Findings: The lumbar vertebral bodies are normal in height, and sagittal alignment is within normal limits. Disc space heights are well-maintained. There is minimal anterior marginal spurring at several levels. No acute fracture is identified. There is mild degenerative change at the SI joints, but the SI joints appear intact. At T12-L1, no spinal canal stenosis or neuroforaminal narrowing is identified. At L1-L2, no spinal canal stenosis or neuroforaminal narrowing is identified. At L2-L3, no spinal canal stenosis or neuroforaminal narrowing is identified. At L3-L4, no spinal canal stenosis or neuroforaminal narrowing is identified. At L4-L5, there is a minimal diffuse posterior disc bulge and mild bilateral facet arthropathy. No spinal canal stenosis or neuroforaminal narrowing is seen. At L5-S1, there is a mild diffuse posterior disc bulge and minimal bilateral facet arthropathy. No spinal canal stenosis or neuroforaminal narrowing is seen. Mild calcified plaque is seen at the arteries, and there is partially visualized right pleural fluid. Impression: 1. Mild degenerative change at the lumbar spine. No acute osseous process is identified. 2. Partially visualized right pleural fluid. PROCEDURE INTERPRETED AT [facility] ([facility]) DEPARTMENT OF RADIOLOGY Final Report Signed by: Dr. Farzad Mckeon
[2016-09-16] MEDS: ATORVASTATIN 40 MG TABLET PO SCH (10:04)
[2016-09-16] MEDS: ENOXAPARIN 100 MG/ML SYRINGE SUBCUT SCH (10:05)
[2016-09-16] MEDS: TICAGRELOR 90 MG TABLET PO SCH ×2 (10:05→20:51)
[2016-09-16] MEDS: ASPIRIN EC 81 MG TABLET PO SCH (10:05)
[2016-09-16] MEDS: METOPROLOL TARTRATE 25 MG TABLET PO SCH ×2 (10:05→20:51)
[2016-09-16] MEDS: PANTOPRAZOLE 40 MG TABLET PO SCH (10:05)
[2016-09-16] MEDS: LOSARTAN 25 MG TABLET PO SCH (10:05)
--- NOTE | 2016-09-16 17:36 | Hospitalist Progress Note ---
Assessment and Plan (1) Acute CHF (congestive heart failure) Status: Acute Assessment and plan: 1)acute CHF in setting of recent VT- diuresing with lasix, still with symptomatic pulmonary edema. BNP 1163 down to 721 yesterday. EF not known. Check echo. cardiology delayed cath today- she had 4 stents in the last 2 weeks and there was concern that she was having ongoing ischemia. She was changed to Brillinta. Her other meds continued. 2)back pain- no complaint today. pelvis XR showed no fracture. CT of L spine showed mild degenerative disease, right pleural fluid. 3)anemia Current Visit: Yes (2) CAD (coronary artery disease) Problem details: with elevated troponin Status: Chronic Current Visit: Yes Qualifiers: Coronary Disease-Associated Artery/Lesion type: [place] artery [place] vs. transplanted heart: [place] heart (3) Recent myocardial infarction Status: Chronic Current Visit: No (4) DM2 (diabetes mellitus, type 2) Status: Chronic Current Visit: Yes Qualifiers: Diabetes mellitus complication status: without complication (5) History of percutaneous coronary intervention Status: Acute Current Visit: Yes (6) Chest pain Status: Acute Current Visit: Yes Hospitalist: Subjective Interval history: No chest pain. She has worsening orthopnea and PND. Her lower extremity edema has improved. Exam - Constitutional Vitals: Period Temp Pulse Resp BP Sys/Vizcarra Pulse Ox Last 24 Hr 97.7 F-98.6 F 97-102 16-20 126-175/60-88 95-97 General appearance: no acute distress, over weight - Head Head exam: Present: normocephalic, atraumatic - Eye Eye exam: Present: EOMI. Absent: scleral icterus - Respiratory Respiratory exam: Present: rales (about [address] bilaterally) - Cardiovascular Cardiovascular exam: Present: regular rate and rhythm - GI/Abdominal GI/Abdominal exam: Present: normal bowel sounds, soft. Absent: tenderness - Extremities Exam Extremities exam: Present: edema (2+) - Neurological Exam Neurological exam: Present: alert, oriented X3 - Skin Skin exam: Present: warm, dry Results - Labs CBC & BMP: 09/16/16 03:12 09/16/16 03:12 Lab Results: I have reviewed the past 24 hour labs
--- NOTE | 2016-09-16 18:36 | Cardiology Progress Note ---
I, Rashida Lama RN, am scribing for, and in the presence of, Miki Vega MD 18:36. Assessment and Plan (1) Chest pain Status: Acute Assessment and plan: 1. 46-year-old BF with hypertension, dyslipidemia, diabetes status post reported STEMI in [place] about 2 weeks ago with 4 stents placed, now presenting with increased dyspnea on exertion, and some chest discomfort with trivial troponin elevation in no acute EKG changes. 2. Given the diffuseness of the patient's disease and symptoms, I think she is best served with heart catheterization tomorrow to define her coronary anatomy before allowing her to be driven back to [place] (she is visiting in the area) 3. Hypertension with suboptimal control, will change to Coreg, and add low- dose amlodipine. Current Visit: Yes (2) CAD (coronary artery disease) Problem details: with elevated troponin Status: Chronic Current Visit: Yes Qualifiers: Coronary Disease-Associated Artery/Lesion type: [place] artery [place] vs. 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 Martel is a 46-year-old female with a history of CAD, diabetes, and chronic anemia. She had heart cath in [place] 09/01/2016 where she had PTCA to proximal first diagonal and PCI to mid LAD, mid second OMB, proximal mid RCA, and proximal RPDA. She was placed on Plavix which she says she has been taking daily. She was was visiting with family on Friday began having chest pain that is different from the pain she had before she had her stents. She presented emergency for further evaluation. EKG showed sinus rhythm with heart rate of 91. Troponin since admission has been 0.137, 0.1-2, and 0.108. Her pain was relieved in the emergency department with sublingual nitroglycerin. Venous Doppler was negative for DVT in bilateral lower extremities. Today she is seen resting in bed in no acute distress. She denies having any further chest pain. She is currently not wearing oxygen and reports she is short of breath. She says she has been using the oxygen intermittently and that it does help some. Encouraged her to use the oxygen. Monitor monitor currently shows sinus rhythm heart rates in the 90s. EKG this morning showed sinus rhythm heart rate of 99. Her blood pressure has been elevated, this morning is 162/88. Labs this morning are unremarkable except for magnesium of 1.7. She has magnesium ordered per protocol. Exam (Progress Note) - Constitutional Vitals: Period Temp Pulse Resp BP Sys/Vizcarra Pulse Ox Last 24 Hr 98 F-98.6 F 95-100 18-20 126-175/60-88 95-96 General appearance: no acute distress, morbidly obese - Head Head exam: Absent: abrasion, hematoma - Eye Eye exam: Absent: periorbital swelling, laceration to eyelids - Respiratory Respiratory exam: Present: clear to auscultation bilaterally, other (Oxygen use via nasal cannula intermittently). Absent: accessory muscle use, chest wall tenderness - Cardiovascular Cardiovascular exam: Present: regular rate and rhythm. Absent: rubs - GI/Abdominal GI/Abdominal exam: Present: normal bowel sounds, soft. Absent: distended, tenderness - Extremities Exam Extremities exam: Absent: edema - Neurological Exam Neurological exam: Present: alert, oriented X3 - Psychiatric Psychiatric exam: Present: normal affect, normal mood - Skin Skin exam: Present: warm, dry Result/EKG - Labs CBC & BMP: 09/16/16 03:12 09/16/16 03:12 Lab Results: I have reviewed the past 24 hour labs Labs: Laboratory Results - last 24 hr 09/14/16 09/14/16 09/14/16 20:00 20:00 20:00 WBC RBC Hgb Hct MCV MCH MCHC RDW Plt Count MPV Neut % (Auto) Lymph % (Auto) [place] % (Auto) Eos % (Auto) Baso % (Auto) Neut # (Auto) Lymph # (Auto) [place] # (Auto) Eos # (Auto) Baso # (Auto) Immature Gran % Nucleated RBC % Immature Gran # Nucleated RBCs # Anemia Panel Interp See comment Hemoglobin A1 97.6 Hemoglobin A2 2.4 Hemoglobin C Not Reportable Hemoglobin D Not Reportable Hemoglobin E Not Reportable Hemoglobin F (ELP) Not Reportable Hemoglobin G Not Reportable Hemoglobin S Not Reportable Hgb ELP Interp See comment Sodium Potassium Chloride Carbon Dioxide Anion Gap BUN Creatinine GFR Calculation BUN/Creatinine Ratio Glucose POC Glucose Calculated Osmolality Calcium Magnesium MACY (IgG-AHG) Negative MACY, Polyspecific Negative 09/15/16 09/15/16 09/15/16 07:22 11:29 17:32 WBC RBC Hgb Hct MCV MCH MCHC RDW Plt Count MPV Neut % (Auto) Lymph % (Auto) [place] % (Auto) Eos % (Auto) Baso % (Auto) Neut # (Auto) Lymph # (Auto) [place] # (Auto) Eos # (Auto) Baso # (Auto) Immature Gran % Nucleated RBC % Immature Gran # Nucleated RBCs # Anemia Panel Interp Hemoglobin A1 Hemoglobin A2 Hemoglobin C Hemoglobin D Hemoglobin E Hemoglobin F (ELP) Hemoglobin G Hemoglobin S Hgb ELP Interp Sodium Potassium Chloride Carbon Dioxide Anion Gap BUN Creatinine GFR Calculation BUN/Creatinine Ratio Glucose POC Glucose 191 H 297 H 259 H Calculated Osmolality Calcium Magnesium MACY (IgG-AHG) MACY, Polyspecific 09/15/16 09/16/16 09/16/16 20:13 03:12 03:12 WBC 11.2 RBC 3.18 L Hgb 9.3 L Hct 27.8 L MCV 87.4 MCH 29 MCHC 33.5 RDW 14.6 Plt Count 374 MPV 11.0 Neut % (Auto) 69.4 Lymph % (Auto) 19.8 L [place] % (Auto) 9.2 Eos % (Auto) 0.7 Baso % (Auto) 0.4 Neut # (Auto) 7.8 H Lymph # (Auto) 2.2 [place] # (Auto) 1.0 H Eos # (Auto) 0.1 Baso # (Auto) 0.0 Immature Gran % 0.5 Nucleated RBC % 0.0 Immature Gran # 0.06 Nucleated RBCs # 0.00 Anemia Panel Interp Hemoglobin A1 Hemoglobin A2 Hemoglobin C Hemoglobin D Hemoglobin E Hemoglobin F (ELP) Hemoglobin G Hemoglobin S Hgb ELP Interp Sodium 145 Potassium 3.6 Chloride 106 Carbon Dioxide 29 Anion Gap 13.6 BUN 9 Creatinine 0.70 GFR Calculation 149 BUN/Creatinine Ratio 12.00 Glucose 233 H POC Glucose 335 H Calculated Osmolality 293.7 Calcium 8.7 Magnesium MACY (IgG-AHG) MACY, Polyspecific 09/16/16 09/16/16 03:12 08:02 WBC RBC Hgb Hct MCV MCH MCHC RDW Plt Count MPV Neut % (Auto) Lymph % (Auto) [place] % (Auto) Eos % (Auto) Baso % (Auto) Neut # (Auto) Lymph # (Auto) [place] # (Auto) Eos # (Auto) Baso # (Auto) Immature Gran % Nucleated RBC % Immature Gran # Nucleated RBCs # Anemia Panel Interp Hemoglobin A1 Hemoglobin A2 Hemoglobin C Hemoglobin D Hemoglobin E Hemoglobin F (ELP) Hemoglobin G Hemoglobin S Hgb ELP Interp Sodium Potassium Chloride Carbon Dioxide Anion Gap BUN Creatinine GFR Calculation BUN/Creatinine Ratio Glucose POC Glucose 299 H Calculated Osmolality Calcium Magnesium 1.7 L MACY (IgG-AHG) MACY, Polyspecific - Diagnostic Findings Procedure: Chest x-ray: report reviewed by me - EKG EKG results: interpreted by me EKG shows: sinus rhythm Gary Cordova Randall Scott, MD, personally performed the services described in this documentation, ascribed by Rashida Lama RN in my presence, and it is both accurate and complete [id number] .
[2016-09-16] MEDS: amLODIPine 2.5 MG TABLET PO SCH (20:51)
[2016-09-16] MEDS: CARVEDILOL 3.125 MG TABLET PO SCH (20:51)
[2016-09-17 05:03] LABS: Basophils % 0.3 % (0.0-0.8); Eosinophils % 0.3 % (0.00-10.9); Hematocrit 26.7 VOL% (35.7-47.0); Hemoglobin 8.8 GM/DL (12.0-16.0); Immature Granulocytes % 0.2 %; Immature Granulocytes Absolute 0.02 #; Lymphocytes # 2.4 10*3/uL (1.4-4.0); Lymphocytes % 24.8 % (21.3-54.2); Mean Corpuscular Hemoglobin 29 PG (27-34); Mean Corpuscular Volume 86.7 FL (87-102); Neutrophils # 6.2 10*3/uL (1.4-7.4); Neutrophils % 64.4 % (38.7-73.9); Platelet Count 342 T/CUMM (130-400); Red Blood Count 3.08 MC/CUMM (3.8-5.5); Red Cell Distribution Width 14.6 % (9.3-17.3); White Blood Count 9.6 T/CUMM (4-12)
[2016-09-17 05:45] LABS: Calcium 8.3 MG/DL (8.5-10.1); Osmolality,Calculated 290.3 MOS/KG (273-304); Potassium 3.5 MMOL/L (3.5-5.1)
--- NOTE | 2016-09-17 07:20 | EKG Report ---
Stationary ECG Study [facility] Test Date: 09/17/2016 7:21:25 AM Pat Name: RICHIE LOMAX Department: Room: 287 Gender: F Radiation Therapist: KISHORE : 1970 Requested by: Zachery Conklin Order Number: [id number] Reading MD: CASSIE GUTIERRES Intervals Devol Rate: 97 P: 0 ME: 161 QRS: 90 QRSD: 96 T: 180 QT: 360 QTc: 414 Interpretive Statements SINUS RHYTHM POSSIBLE ANTERIOR MYOCARDIAL INFARCTION, PREVIOUSLY CITED Electronically Signed On 09-18-16 07:51:43 CDT by CASSIE GUTIERRES [email or web address]
[2016-09-17] MEDS ORDERED: POTASSIUM CHLORIDE RIDER 10 MEQ in PREMIX 1 EACH IV PRN (08:45)
[2016-09-17] MEDS ORDERED: diphenhydrAMINE CAP 25 MG CAPSULE PO ONE (08:45)
[2016-09-17] MEDS ORDERED: DIAZEPAM 5 MG TABLET PO ONE (08:45)
[2016-09-17] MEDS ORDERED: MAGNESIUM SULF RIDER 2 GM in PREMIX 1 EACH IV PRN (08:45)
--- NOTE | 2016-09-17 08:45 | Event Note ---
46-year-old female who was admitted with shortness of breath some mild chest discomfort. The patient underwent cardiac catheterization September 01, 2016 at [facility] in [place]. The patient that time had multivessel intervention. She had a first diagonal branch which she had PTCA, mid LAD stenosis with stenting, second obtuse marginal branch with stenting, PDA lesion with PTCA and stent, a proximal and mid RCA stenosis stented with a single stent. Because the patient symptomatology Dr. Vega had asked that we carry out cardiac catheterization. I discussed heart catheterization with the patient reviewing the indication procedure as well as how we will carried out the risk. Her mother and daughter present. I discussed cardiac catheterization and percutaneous coronary intervention with the patient and available family. I reviewed with them the indications for the procedure and the basis of how the procedure would be carried out. I also reviewed with them the risk of the procedure which include but not necessarily limited to access site bleeding, bruising, pain, swelling or vascular injury that may require emergency vascular surgery, blood transfusion, or thrombin injection. Also discussed the possibility of stroke, myocardial infarction, arrhythmia which may require electrocardioversion, and the possibility of dye reaction that would require medical therapy. Also discussed the possibility of coronary artery injury, ruptured, closure or perforation that may require emergency bypass surgery. We also discussed the possibility of from a major complication. They voice understanding and agree to proceed. We will plan on carrying this out today.
[2016-09-17] MEDS: LOSARTAN 25 MG TABLET PO SCH (08:47)
[2016-09-17] MEDS: PANTOPRAZOLE 40 MG TABLET PO SCH (08:47)
[2016-09-17] MEDS: TICAGRELOR 90 MG TABLET PO SCH (08:47)
[2016-09-17] MEDS: CARVEDILOL 3.125 MG TABLET PO SCH (08:48)
[2016-09-17] MEDS: ASPIRIN EC 81 MG TABLET PO SCH (08:48)
[2016-09-17] MEDS: amLODIPine 2.5 MG TABLET PO SCH (08:48)
[2016-09-17] MEDS: METOPROLOL TARTRATE 25 MG TABLET PO SCH (08:48)
--- NOTE | 2016-09-17 08:49 | History and Physical Update ---
Sedation H&P Update - History and Physical H&P was reviewed, the patient examined and there: are no changes in the patients condition since last H&P was completed. - Dictation Physical: refer to H&P completed by admitting physician - Physical Exam Mental Status: alert and oriented Heart: regular rate and rhythm Lung: clear to auscultation Abdomen: within normal limits Vitals: within normal limits History and Physical Changes: None - Sedation Plan for Sedation: moderate Patient Consent: Procedure disscussed with patient and patinet has consented., Risks and benefits were discussed with patient,including infection,, bleeding, injury to surrounding structures, seizure, temporary nerve, Patient understands and accepts potential risks/benefits and agrees to, proceed. ASA Class: III Airway Assessment: Class III: Soft palate, base of uvula visible
[2016-09-17] MEDS ORDERED: SODIUM CHLORIDE 0.9% 1,000 ML IV SCH (09:00)
[2016-09-17] MEDS ORDERED: MIDAZOLAM 2 MG/2 ML VIAL ONE (09:10)
[2016-09-17] MEDS ORDERED: LIDOCAINE 1% 20 ML VIAL ONE (09:10)
[2016-09-17] MEDS ORDERED: fentaNYL 100 MCG/2 ML VIAL ONE (09:10)
[2016-09-17] MEDS ORDERED: GLUCAGON 1 MG VIAL IM PRN (09:52)
[2016-09-17] MEDS ORDERED: DEXTROSE 50% 25 GM/50 ML VIAL IV PRN (09:52)
--- NOTE | 2016-09-17 10:37 | Cardiac Catheterization ---
Date of Procedure:: 09/17/16 Pre-op Diagnosis: Patient known coronary disease recently had episode of shortness of breath and slight chest pain. Post-op diagnosis: same Procedure: LEFT HEART CATHERIZATION History: 46-year-old female who recently had stents placed in multiple vessels. Patient had an episode apparently this weekend of some chest pain shortness of breath. Pre-Op diagnosis: Coronary disease a recent episode of some chest pain shortness of breath. No stent placement 2 weeks ago. Postoperative diagnosis: Patient stents are widely patent. Patient has other significant coronary disease and some moderate disease as described below. This should be treated medically. Procedures: 1. Left heart catheterization. 2. Left ventricular angiogram. 3. Selective left and right coronary angiograms. 4. Right common femoral artery angiogram with Angio-Seal hemostasis. Equipment: 6 [place] arterial sheath, 6 [place] diagnostic pigtail catheter, JL4 and JR4 diagnostic catheters. A 6 [place] Angio-Seal hemostatic device. Medications: Preoperative Benadryl and Valium given by mouth. Lidocaine 1% local anesthesia 10 mls administered by myself. Intraprocedure patient received Versed 1 mgs IVP, fentanyl 50 mcg IVP. Complications: None immediate. Contrast: Omnipaque 95 milliliters. Description of procedure: After informed consent the patient was given preoperative medications and brought to the catheterization laboratory where their right groin was prepped and draped in usual fashion. IV sedation was then obtained after which local anesthesia was administered at the right groin over the right common femoral artery. Using modified Seldinger technique the right common femoral artery was cannulated with 6 [place] arterial sheath placed. The pigtail catheter was then advanced through the sheath in a retrograde approach through the aorta to the aortic valve. The catheter was advanced through the aortic valve where left ventricular pressures were measured. The catheter was then pulled back into the aortic root and pressures measured. The catheter was then advanced across the aortic valve into the left ventricle where left ventricular angiogram was obtained in the right anterior oblique view. The pigtail catheter was then removed. The JL4 diagnostic coronary catheter was then advanced through the sheath in a retrograde approach and used to cannulate the left coronary artery of which angiograms were obtained in multiple projections. This catheter was then removed. The JR 4 diagnostic coronary catheter was then advanced retrograde through the aorta and used to cannulate the right coronary artery of which angiograms were obtained in multiple projections. Angiograms were then reviewed. The right coronary catheter was pulled back into the sheath where a right common femoral artery angiogram was obtained with Vascade device hemostasis then obtained of this vessel. There were no immediate complications. Hemodynamic data: LV 175/-2 , EDP 21 ; AO root 172/90 , mean 128 . Left ventricular angiogram: Left ventricle is normal size with probably anterior apical hypokinesis and ejection fraction of 45%. The basilar segment contracts fairly normal. No significant mitral valve regurgitation noted. The aortic valve is probably a tricuspid structure. The thoracic aorta from the right anterior oblique view appears to be grossly unremarkable. Left main coronary artery angiogram: This is a medium caliber vessel that bifurcates the LAD and circumflex arteries. He has some mild calcification. He has no stenosis. Left anterior descending artery angiogram: The LAD proximal is a mid caliber vessel. It tapers her very small vessel distally. The first diagonal branch is a small medium caliber vessel with diffuse disease less than 50% stenosis. This vessel apparently had PTCA carried out recently per report. The LAD just past the diagonal branch has 40-50% stenosis with the mid stent widely patent. Beyond this the LAD is small vessel and probably diffusely diseased. Circumflex artery angiogram: Circumflex proximally is a medium sized vessel calcification. The first obtuse marginal branch is extremely small. The second obtuse marginal branch is overall medium caliber vessel that bifurcates with a subbranch present that has 90+% stenosis but overall is really too small for intervention. The proximal portion of this vessel has proximal 50% stenosis and midportion 40-50% stenosis and with the probably distal stent being widely patent. Distally circumflex gives rise to a small third obtuse marginal branch. Right coronary artery angiogram: The RCA is a medium caliber dominant vessel. The PDA is a medium caliber vessel with the stent widely patent in this vessel. The RCA proximal and mid vessel has a long stent that is widely patent. There is proximal stenosis of less than 20%. Distal stenosis prior to the PDA takeoff of 50% otherwise diffuse luminal irregularities of less than 20% stenosis. ZULEYMA-3 flow was present. Right common femoral artery angiogram: The right common femoral arteries widely patent with the sheath inserting the common femoral artery. We have successful Vascade device deployment and hemostasis. Impression: 1. Patient's left ventricular function is mildly suppressed at 45% with some segmental wall motion abnormalities of the distal anterior wall and apex. 2. LVEDP is mildly elevated at 21 mmHg. 3. Aortic valve the tricuspid structure without significant gradient. 4. There is no significant mitral valve regurgitation noted. 5. RCA with patent proximal to mid long stent as well as PDA stent widely patent. There is diffuse disease most severe disease being 50% in the distal RCA prior to PDA takeoff. 6. Left main coronary is patent with some mild calcification. 7. Circumflex artery with a patent stent in the second obtuse marginal branch. The proximal portion of this vessel though has up to 50+% stenosis. There is a subbranch of the second obtuse marginal branch has 90% stenosis. There is ZULEYMA-3 flow throughout these vessels. 8. The LAD has a patent mid stent. There is 50% mid stenosis proximal to the stent. The first diagonal that is post PTCA has up to 50% stenosis. The distal LAD is diffusely diseased and small vessel. ZULEYMA-3 flow though is present. 9. The right common carotid is widely patent. 10. Successful Vascade device hemostasis of the right common femoral artery. Discussion: We will marked this patient post procedure. She should be treated medically. Risk factor modification is very important in this case. Implants: None Anesthesia: local, moderate conscious sedation Surgeon / Physician: Alvin Camarillo Aircraft Power Plant Assembler: other (Ele CHEUNG) Estimated blood loss: minimal Specimens: none sent Condition: stable Disposition: floor - Medications / Follow-up
[2016-09-17] MEDS: INSULIN LISPRO 100 UNIT/ML SUBCUT SCH ×3 (10:51→17:21)
[2016-09-17] MEDS: ATORVASTATIN 40 MG TABLET PO SCH (10:52)
[2016-09-17] MEDS: FUROSEMIDE 40 MG/4 ML VIAL IV SCH ×2 (10:52→17:12)
--- NOTE | 2016-09-17 11:58 | Operative Note ---
Date of procedure: 09/17/16 Procedure Preformed: Left heart catheterization with LV gram. Surgeon / Physician: Alvin Camarillo Concrete Rod Buster: Ele Yeung Post-op diagnosis: same Findings: Patient's coronary stents are widely patent. Has a branch/subbranch off the second obtuse marginal branch had 90% stenosis and ZULEYMA-3 flow. This very small vessel. Moderate disease of the LAD proximal. There is also diagonal stenosis that was 50% or less. Patient should have medical therapy. Specimens: none sent Estimated blood loss: minimal Condition: stable Anesthesia: local, conscious sedation Disposition: floor
--- NOTE | 2016-09-17 15:33 | Discharge Summary ---
<Charline Ornelas - Last Filed: 09/17/16 15:27> Hospital Course - Hospital Course Hospital Course: Ms. Martel is a 46-year-old Afro-[place] female with history of hypertension, lipidemia, diabetes, CAD status post IL with multiple stents, CHF exacerbation and recent intubation for respiratory failure due to pneumonia and CHF 2 weeks ago where she was treated in [facility]. She was just released from the hospital yesterday and she was admitted by hospital medicine on 09/14/2016 with further complaints of chest pain and weakness. Patient was switched over from Plavix to Brilinta per cardiology's recommendations. They also changed her hypertensive medications to Coreg and added a low-dose amlodipine for better control of her hypertension. Because of the diffuseness of the disease and her symptoms they felt heart cath was in order. This was done on 09/17/[address] Camarillo. He found that her left ventricular function was mildly suppressed at 45% with some segmental wall motion abnormalities of the distal or anterior wall and apex. He found that her new stents were widely patent and recommended risk factor modification and medical treatment. Patient also had complaints of low back pain and pelvic x-ray, thoracic and lumbar CTs were all negative. This pain has since resolved. Patient's new medicines are Brilinta and an 81 mg aspirin daily. She is to continue her insulin, lisinopril, Zocor, and carvedilol. Her Lasix was changed to 40 mg p.o. twice daily and her Plavix was discontinued. She will be discharged home with a diabetic heart healthy low- fat low-cholesterol low-salt diet and use exercise at least 3 times a week. 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 Patient's case was discussed with cardiology, Dr. Chavez the hospitalist , employment evaluator/case manager, nursing and patient. Care coordination, chart review, and completed discharge paperwork took approximately 37 minutes. Diagnosis - Discharge Diagnosis (1) Acute CHF (congestive heart failure) Status: Acute (2) CAD (coronary artery disease) Status: Chronic (3) Recent myocardial infarction Status: Chronic (4) DM2 (diabetes mellitus, type 2) Status: Chronic (5) History of percutaneous coronary intervention Status: Acute (6) Chest pain Status: Acute Specialty Discharge - Follow Up or Referrals Follow up with: Your, collar turner operator in [place] [Other] ([facility]) Discharge Plan - Discharge Data Disposition: Disch To Home/Self Care Condition at Discharge: Stable Discharge Diet: diabetic diet, heart healthy, low fat, low cholesterol, low salt diet Activity: increase activity as tolerated - Discharge Medications New Ticagrelor [Brilinta] 90 mg PO BID #60 tablet Aspirin EC Tab 81 mg PO DAILY tablet Continue Insulin NPH Hum/Reg Insulin Hm [NovoLIN 70/30] 30 units SUBCUT BID Lisinopril 40 mg PO DAILY Insulin Regular, Human [NovoLIN R] 10 unit SUBCUT TIDAC MDD 90UNITS/24H Simvastatin [Zocor] 40 mg PO BEDTIME Carvedilol 25 mg PO BID Changed Furosemide Tab [Lasix Tab] 40 mg PO BID #0 Discontinued Clopidogrel [Plavix] 75 mg PO DAILY - Follow Up or Referral Follow Up: Tyra, collar turner operator in [place] [Other] ([facility]) - Forms/Instructions Exam - Constitutional Vitals: Period Temp Pulse Resp BP Sys/Vizcarra Pulse Ox Last 24 Hr 97.4 F-98.5 F 96-102 16-18 147-156/72-86 92-98 Discharge Results Procedures and tests throughout hospitalization: Pending Orders 09/17/16 08:08 CL heart Routine Labs on day of discharge: Labs from last 24 hours 09/17/16 09/17/16 09/17/16 12:17 10:39 08:11 WBC RBC Hgb Hct MCV MCH MCHC RDW Plt Count MPV Neut % (Auto) Lymph % (Auto) [place] % (Auto) Eos % (Auto) Baso % (Auto) Neut # (Auto) Lymph # (Auto) [place] # (Auto) Eos # (Auto) Baso # (Auto) Immature Gran % Nucleated RBC % Immature Gran # Nucleated RBCs # Sodium Potassium Chloride Carbon Dioxide Anion Gap BUN Creatinine GFR Calculation BUN/Creatinine Ratio Glucose POC Glucose 246 H 415 H 380 H Calculated Osmolality Calcium 09/17/16 09/17/16 09/16/16 03:50 03:50 19:50 WBC 9.6 RBC 3.08 L Hgb 8.8 L Hct 26.7 L MCV 86.7 L MCH 29 MCHC 33.0 RDW 14.6 Plt Count 342 MPV 11.0 Neut % (Auto) 64.4 Lymph % (Auto) 24.8 [place] % (Auto) 10.0 Eos % (Auto) 0.3 Baso % (Auto) 0.3 Neut # (Auto) 6.2 Lymph # (Auto) 2.4 [place] # (Auto) 1.0 H Eos # (Auto) 0.0 Baso # (Auto) 0.0 Immature Gran % 0.2 Nucleated RBC % 0.0 Immature Gran # 0.02 Nucleated RBCs # 0.00 Sodium 141 Potassium 3.5 Chloride 102 Carbon Dioxide 29 Anion Gap 13.5 BUN 9 Creatinine 0.80 GFR Calculation 126 BUN/Creatinine Ratio 11.00 Glucose 288 H POC Glucose 231 H Calculated Osmolality 290.3 Calcium 8.3 L DS: Provider Date of admission: 09/14/16 15:43 Primary care physician: . No PCP Attending physician on admission: Norma Gonsalez MD Consults: 09/14/16 16:17 Consult to Occupational Therapy [CONS] Routine Reason for Occupational Therapy: Evaluate and Treat Weakness Consult to Physical Therapy [CONS] Routine Reason for Physical Therapy: Evaluate and Treat 09/14/16 17:42 Consult to Physician [CONS] Routine Comment: Consulting Provider: Zachery Conklin Discharging clinician: Charline Ornelas MD <Ele Kwon - Last Filed: 09/17/16 16:55> Hospital Course - Time spent with patient Time with patient DS: Greater than 30 minutes Diagnosis - Discharge Diagnosis (1) Acute CHF (congestive heart failure) Status: Resolved (2) CAD (coronary artery disease) Status: Chronic (3) Recent myocardial infarction Status: Chronic (4) DM2 (diabetes mellitus, type 2) Status: Chronic (5) Back pain Status: Resolved (6) Chest pain Status: Resolved Discharge Plan - Discharge Data Contact your physician if you experience:: Shortness of breath Exam - Constitutional Exam: 46-year-old -[place] male, no acute distress, alert and oriented Chest clear CV regular rate and rhythm Abdomen soft and nontender +1 edema bilateral lower extremities DS: Provider Expected date of discharge: 09/17/16
--- NOTE | 2016-09-17 16:06 | Event Note ---
Patient stable post cardiac catheterization. Right groin stable. She has had no symptomatology of chest pain shortness of breath. Discussed findings with the patient recommendations.
[2016-09-17 17:10] VITALS: BP 153/83
--- NOTE | 2016-09-17 18:13 | ECHO Report ---
Alma Rosa Martel 09/17/2016 Exam Date: 10:32 Referring Physician: Kylah Blank Technologist: OMARI Age: 46 Ht (in): 66 Wt (lb): 225 FExam Location: [facility] Gender: Echo [id number]: Heart failure, unspecified, PulmonaIndications:y edema, CAD, Diabetes, Chest pain, unspecified BP: 149 / 74 HR: 97 SinusRhythm: Technical Quality: IMPRESSIONS Technically difficult study Normal chamber sizes 2+ concentric LVH Borderline LV systolic function with ejection fraction estimated 50% possibly mild anterior hypokinesis 1+ mitral and tricuspid regurgitation with RVSP 47 mmHg plus RAP MEASUREMENTS (Male / Female) Normal Values 2D ECHO LV Diastolic Diameter PLAX 4.2 cm 4.2 - 5.9 / 3.9 - 5.3 cm LV Systolic Diameter PLAX 2.9 cm LV Fractional Shortening PLAX 30.3 % IVS Diastolic Thickness 1.3 cm 0.6 - 1.0 / 0.6 - 0.9 cm LVPW Diastolic Thickness 1.3 cm 0.6 - 1.0 / 0.6 - 0.9 cm RV Internal Dim ED PLAX 2.2 cm Aortic Root Diameter 2.8 cm LA Systolic Diameter LX 3.5 cm 3.0 - 4.0 / 2.7 - 3.8 cm DOPPLER TR Peak Velocity 341.0 cm/s TR Peak Gradient 46.5 mmHg FINDINGS Left Ventricle Normal left ventricular cavity size. Mild left ventricular hypertrophy. Left ventricular ejection fraction is estimated at, Right Ventricle The right ventricle is normal in size and function. Right Atrium The right atrium is normal in size. Left Atrium The left atrium is normal in size. Mitral Valve Morphologically normal mitral valve. Mild-moderate mitral valve regurgitation. Aortic Valve Morphologically normal aortic valve without significant sclerosis or stenosis. There is no aortic regurgitation. Tricuspid Valve Morphologically normal tricuspid valve. Osac-ev-ivrewhav tricuspid valve regurgitation. Tricuspid regurgitation velocities suggest a PAP of 57 mmHg. Pulmonic Valve Morphologically normal pulmonic valve without significant stenosis. There is no pulmonic regurgitation. Pericardium Normal pericardium without effusion. Aorta Normal ascending aorta dimension. Miki Vega (Electronically Signed) 17 September 2016 Final Date: 18:12
== END 2016-09-17 18:45 | disposition home or self-care (01) | DRG 280 ==
LOC: EDBD → EDUNIT# → N.ED 13:42 → SUATTDRO 15:43 → N.EDINP 15:43 → N.TELEN 17:28
PROVIDERS: ADMIT Pediatrics; ATTEND Internal Medicine
PROC: CLCCHCL (ICD-10-PCS; 2016-09-17 09:45)

== ENCOUNTER 2016-10-03 22:49 | Observation (INO) ==
[2016-10-03] MEDS ORDERED: SODIUM CHLORIDE 0.9% 1,000 ML IV STA (22:55)
--- NOTE | 2016-10-03 23:49 | Emergency Department Note ---
IChi Mantricia, am scribing for, and in the presence of, Aurea Mccarthy DO 23:23. IFabio Debra, DO, personally performed the services described in this documentation, ascribed by Rahel Mireles in my presence, and it is both accurate and complete 348 . Arrival - Arrival Chief Complaint: Blood Pressure Stated Complaint: blood pressure low dizzy vomiting ED Nursing Triage Note: Pt arrives from home with complaints of having low blood pressure and feeling weak. Pt is noted to be lethargic and slurring her words at time of triage. When asked if she takes any pain medication or drinks she states that this is what happens when her b/p drops. Pt states that she took her regular night time medications prior to arrival. Insulin 20 units with a blood sugar of 320 per pt report. PT also states that she is has been having issues with blood pressure for a few weeks. Pt reports b/p of 57/42 prior to arrival. CBG at time of triage is 294 mg/dl. Mode of Arrival: Wheelchair Limitations: No Limitations Source: Patient - History of Present Illness HPI Narrative: Pt is a 46 y/o black female arriving to ED via wheelchair with c/o low blood pressure that onset "a few weeks" ago. Pt states that she is currently taking blood pressure medication and her dosage was increased to 40mg from 20mg a month ago. She reports that every time she takes her blood pressure medications , she becomes dizzy and weak. Pt is lethargic at time of exam and speaks with slurring words. Pt is currently taking Berlinta, Lasinopril, [place], Aspirin, and Lortab. She states that she has not taken her norco or lortab today. She reports that her blood pressure was 57/42 at home and she was too scared to fall asleep with it that low. At time of exam, pt's blood pressure is 76/43. Pt has a PMHx of HTN, [place], CHF, CAD, peripheral neuropathy, IDDM, and GERD. No other complaints were reported to ED. Onset (ago): week(s) Consistency: constant Date of Last Menstrual Period: hyster Allergies/Adverse Reactions: Allergies Allergy/AdvReac Type Severity Reaction Status Date / Time levofloxacin [From Levaquin] Allergy Unknown/Unable Verified 09/14/16 13:55 to obtain Penicillins Allergy RASH Verified 07/09/14 08:36 Home Medications: Home Medications Medication Instructions Recorded Confirmed Type Insulin NPH Hum/Reg Insulin Hm 30 units SUBCUT BID 07/09/14 10/03/16 History [NovoLIN 70/30] Carvedilol 25 mg PO BID 09/14/16 10/03/16 History Insulin Regular, Human [NovoLIN R] 10 unit SUBCUT TIDAC MDD 09/14/16 10/03/16 History 90UNITS/24H Lisinopril 40 mg PO DAILY 09/14/16 10/03/16 History Simvastatin [Zocor] 40 mg PO BEDTIME 09/14/16 10/03/16 History Aspirin EC Tab 81 mg PO DAILY tablet 09/17/16 10/03/16 Rx Furosemide Tab [Lasix Tab] 40 mg PO BID #0 09/17/16 10/03/16 Rx HYDROcodone/ACETAMIN 5-325 [[place] 1 tablet PO Q4H PRN #7 tablet 09/17/16 Rx 5-325] Ticagrelor [Brilinta] 90 mg PO BID #60 tablet 09/17/16 10/03/16 Rx Cyclobenzaprine [Flexeril] 5 mg PO TID PRN #15 tablet 10/01/16 10/03/16 Rx Review of System - Review of System 12 point system: reviewed and no additional remarkable complaints except as stated - Review of System Constitutional: Present: other (low blood pressure). Absent: chills, diaphoresis, fever Respiratory: Absent: cough Cardiovascular: Absent: chest pain, palpitations Gastrointestinal: Absent: abdominal pain, nausea, vomiting, diarrhea Genitourinary female: Absent: abnormal menses Medical,Surgical,& Family Hx - Medical History Cardio: History of: CHF, CAD, Hypertension, [place] Neurology: History of: Peripheral Neuropathy No history of: Seizures HEENT: History of: Eye Problem (Cataract) Endocrine: History of: Diabetes Mellitus (IDDM), Dyslipidemia Gastrointestinal: History of: GERD Musculoskeletal: History of: Musculoskeletal Problems (Right arm fracture remotely) - Surgical History Cardiac Surgeries: Sugical HX of: Cardiac Catheterization (stents X4) HEENT Surgeries: Surgical HX of: Eye Surgery (02/05/2013-left eye cataract extraction) Abdominal Surgeries: Surgical HX of: Cholecystectomy, EGD Reproductive Surgeries: Surgical HX of;: Hysterectomy (2007) - Family History Family History: Reports;: Family Cancer, Family Diabetes, Family Heart Disease, Family Stroke - Social History Smoking Status: Never smoker Frequency of Alcohol Use: None Type of Drug Use: None Exam Vital Signs: Vital Signs Temperature 97.8 F 10/03/16 22:50 Pulse Rate 96 H 10/03/16 22:50 Respiratory Rate 20 10/03/16 22:50 Blood Pressure 67/48 10/03/16 22:50 O2 Sat by Pulse Oximetry 98 10/03/16 22:50 - General General appearance: alert, lethargic, other (slurred speech) - Head Head exam: Present: atraumatic, normocephalic, normal inspection - Eye Eye exam: Present: normal appearance, PERRL, EOMI - ENT ENT exam: Present: normal exam, normal oropharynx, mucous membranes moist, TM's normal bilaterally, normal external ear exam - Neck Neck exam: Present: normal inspection, full ROM, trachea midline. Absent: tenderness - Chest Chest inspection: Present: normal inspection, symmetric chest wall rise. Absent : tenderness - Respiratory Respiratory exam: Present: normal lung sounds bilaterally - Cardiovascular Cardiovascular exam: Present: regular rate, normal rhythm, normal heart sounds - Abdominal Exam Abdominal exam: Present: soft, normal bowel sounds. Absent: distention, tenderness, guarding, rebound - Extremities Exam Extremities exam: Present: normal inspection, full ROM, normal capillary refill. Absent: tenderness, pedal edema - Back Exam Back exam: Present: normal inspection, full ROM. Absent: tenderness - Neurological Exam Neurological exam: Present: alert, oriented X3, CN II-XII intact, normal gait, reflexes normal - Psychiatric Psychiatric exam: Present: normal affect, normal mood - Skin Skin exam: Present: warm, dry, intact, normal color Course Course Narrative: spoke with hospitalist who will admit pt for observation Results - Labs CBC & BMP: 10/03/16 23:50 10/03/16 23:50 Disposition Clinical Impression: Hypotension Case discussed with: patient Disposition: Still a Patient Condition: Stable Time of Disposition: 01:10
[2016-10-04 00:14] LABS: PT Patient Result 10.7 SECS; Partial Thromboplastin Time 25.6 SECS (0-40)
[2016-10-04 00:26] LABS: Alanine Aminotransferase 23 U/L (13-56); Albumin 2.6 G/DL (3.4-5.0); Alkaline Phosphatase 166 U/L (45-117); Aspartate Amino Transferase 16 U/L (0-37); Blood Urea Nitrogen 25 MG/DL (7-18); Calcium 8.8 MG/DL (8.5-10.1); Glucose 190 MG/DL (74-106); Osmolality,Calculated 287.4 MOS/KG (273-304); Potassium 3.8 MMOL/L (3.5-5.1); Sodium 140 MMOL/L (136-145); Total Protein 6.2 G/DL (6.4-8.3); Troponin I Only < 0.015 NG/ML (0.00-0.045)
[2016-10-04 00:32] LABS: Apearance,Urine CLEAR (Clear); Bilirubin,Urine Negative (Negative); Blood, Urine Small mg/dL (Negative); Glucose,Urine (UA) >=500 mg/dL (Negative); Hyaline Casts,Urine 27 /LPF (0-3); Ketones,Urine Negative (Negative); Mucus,Urine Occasional /LPF (Occasional); Nitrite,Urine Negative (Negative); Protein,Urine 100 MG/DL; RBC,Urine 1 /HPF (0-4); Squamous Epithelial Cell,Urine Occasional /HPF (0-10); Urine Color Yellow (Yellow); Urine Specific Gravity 1.007 (1.001-1.035); Urine Urobilinogen < 2.0 EU/DL (0.2-1.0); WBC,Urine 6 /HPF (0-6)
[2016-10-04 00:37] LABS: Barbiturates Screen,Urine Negative (Negative); Benzodiazepines Screen,Urine Positive (Negative); Cannabinoid Screen,Urine Negative (Negative); Opiate Screen,Urine Negative (Negative); Phencyclidine Screen,Urine Negative (Negative)
[2016-10-04 00:38] LABS: Basophils % 0.3 % (0.0-0.8); Eosinophils # 0.1 10*3/uL (0.0-0.87); Eosinophils % 0.6 % (0.00-10.9); Hemoglobin 10.5 GM/DL (12.0-16.0); Immature Granulocytes % 0.6 %; Immature Granulocytes Absolute 0.05 #; Lymphocytes # 3.3 10*3/uL (1.4-4.0); Lymphocytes % 36.6 % (21.3-54.2); Mean Corpuscular HGB Conc 33.9 GM/DL (32-36); Mean Corpuscular Hemoglobin 29 PG (27-34); Mean Corpuscular Volume 85.9 FL (87-102); Mean Platelet Volume 11.4 FL (9.6-12.0); Monocytes # 0.8 10*3/uL (0.11-0.8); Monocytes % 9.3 % (1.7-12.7); Neutrophils # 4.7 10*3/uL (1.4-7.4); Neutrophils % 52.6 % (38.7-73.9); Platelet Count 305 T/CUMM (130-400); Red Blood Count 3.61 MC/CUMM (3.8-5.5); Red Cell Distribution Width 13.4 % (9.3-17.3)
[2016-10-04] MEDS: SODIUM CHLORIDE 0.9% 1,000 ML IV SCH ×3 (03:02→21:11)
--- NOTE | 2016-10-04 04:34 | Hospitalist History & Physical ---
Assessment and Plan - Time spent with patient Time spent with patient: Less than 30 minutes (1) Hypotension Status: Acute Assessment and plan: I suspect this is secondary to overmedication with antihypertensives. Patient's last echocardiogram in September 2016 revealed mild systolic LV dysfunction with estimated EF of 50%. A reduction in the Lisinopril and Furosemide might prove beneficial in stabilizing this patient upon discharge. Current Visit: Yes (2) Acute kidney failure Status: Acute Assessment and plan: Gentle IV hydration. Repeat labs in the a.m. Current Visit: Yes History of Present Illness Chief complaint: hypotension, dizzy, vomiting History of present illness: Ms. Matrel is a 46 year old -[place] female with a past medical history significant for hypertension, myocardial infarction, congestive heart failure, coronary artery disease, IDDM who presented to the ED tonight with complaints of low blood pressure and feeling dizzy with onset a few weeks ago. This patient was recently admitted, discharged and seen several times in the ER in the last 2 weeks with similar complaints of low blood pressure and feelings of weakness. The patient takes several antihypertensives including a recent increase in her Lisinopril and Furosemide dosages. She currently takes Lisinopril 40mg daily and Furosemide 40 mg BID and reports continued feelings of dizziness and weakness. She was found to be hypotensive on admission with a BP of 67/48 in the ED. She was given 2L of NS with BP normalizing to 135/86 afterwards. The patient was admitted to the telemetry unit for observation overnight, and her antihypertensives were held. Case has been discussed with Dr. Mccarthy, ER physician, and Dr. Quintanilla, admitting physician. She is a full code. Home meds have been reviewed and reconciled. Patient should be able to go home in the morning with a reduction in her ACEi and diuretic dosages. Home Medications Medication Instructions Recorded Confirmed Type Insulin NPH Hum/Reg Insulin Hm 30 units SUBCUT BID 07/09/14 10/03/16 History [NovoLIN 70/30] Carvedilol 25 mg PO BID 09/14/16 10/03/16 History Insulin Regular, Human [NovoLIN R] 10 unit SUBCUT TIDAC MDD 09/14/16 10/03/16 History 90UNITS/24H Lisinopril 40 mg PO DAILY 09/14/16 10/03/16 History Simvastatin [Zocor] 40 mg PO BEDTIME 09/14/16 10/03/16 History Aspirin EC Tab 81 mg PO DAILY tablet 09/17/16 10/03/16 Rx Furosemide Tab [Lasix Tab] 40 mg PO BID #0 09/17/16 10/03/16 Rx HYDROcodone/ACETAMIN 5-325 [[place] 1 tablet PO Q4H PRN #7 tablet 09/17/16 Rx 5-325] Ticagrelor [Brilinta] 90 mg PO BID #60 tablet 09/17/16 10/03/16 Rx Cyclobenzaprine [Flexeril] 5 mg PO TID PRN #15 tablet 10/01/16 10/03/16 Rx Allergies Allergy/AdvReac Type Severity Reaction Status Date / Time levofloxacin [From Levaquin] Allergy Unknown/Unable Verified 09/14/16 13:55 to obtain Penicillins Allergy RASH Verified 07/09/14 08:36 Medical,Surgical,& Family Hx - Medical History Cardio: History of: CHF, CAD, Hypertension, [place] Neurology: History of: Peripheral Neuropathy No history of: Seizures HEENT: History of: Eye Problem (Cataract) Endocrine: History of: Diabetes Mellitus (IDDM), Dyslipidemia Gastrointestinal: History of: GERD Musculoskeletal: History of: Musculoskeletal Problems (Right arm fracture remotely) - Surgical History Cardiac Surgeries: Sugical HX of: Cardiac Catheterization (stents X4) HEENT Surgeries: Surgical HX of: Eye Surgery (02/05/2013-left eye cataract extraction) Abdominal Surgeries: Surgical HX of: Cholecystectomy, EGD Reproductive Surgeries: Surgical HX of;: Gynecologic Surgery, Hysterectomy (2006 ) - Family History Family History: Reports;: Family Cancer, Family Diabetes, Family Heart Disease, Family Stroke - Social History Smoking Status: Never smoker Frequency of Alcohol Use: None Type of Drug Use: None Marital Status: Single Lives With:: Parent Functional capacity: independent ambulation 12 point system: reviewed and no additional remarkable complaints except as stated Exam - Constitutional Vitals: Period Temp Pulse Resp BP Sys/Vizcarra Pulse Ox Last 24 Hr 97.8 F-98.2 F 93-96 16-20 67-151/48-86 98-99 Exam: General appearance: obese, no acute distress - Head Head exam: Present: normocephalic, atraumatic - Eye Eye exam: Present: EOMI. Absent: conjunctival injection, nystagmus Pupils: Present: MARITZA, normal accommodation - ENT ENT exam: Present: normal exam, normal external ear exam - Neck Neck exam: Present: normal inspection. Absent: lymphadenopathy, tenderness, thyromegaly - Respiratory Respiratory exam: Present: clear to auscultation bilaterally. Absent: rales, rhonchi, wheezes - Cardiovascular Cardiovascular exam: Present: regular rate and rhythm. Absent: carotid bruit, gallop, rubs - GI/Abdominal GI/Abdominal exam: Present: normal bowel sounds. Absent: ascites, distended, mass - Extremities Exam Extremities exam: Present: normal inspection, normal capillary refill. Absent: edema - Back Exam Back exam: Absent: CVA tenderness (L), CVA tenderness (R) - Neurological Exam Neurological exam: Present: lethargic, oriented x3, CN II-XII intact, reflexes normal - Psychiatric Psychiatric exam: Present: normal affect, normal mood - Skin Skin exam: Present: normal color, warm, dry Results - Labs CBC & BMP: 10/03/16 23:50 10/03/16 23:50 Lab Results: I have reviewed the past 24 hour labs - EKG EKG results: interpreted by AMIE
[2016-10-04 05:07] LABS: Basophils % 0.2 % (0.0-0.8); Eosinophils % 0.4 % (0.00-10.9); Hemoglobin 11.6 GM/DL (12.0-16.0); Immature Granulocytes % 0.3 %; Immature Granulocytes Absolute 0.03 #; Lymphocytes # 3.1 10*3/uL (1.4-4.0); Lymphocytes % 30.7 % (21.3-54.2); Mean Corpuscular HGB Conc 34.1 GM/DL (32-36); Mean Corpuscular Hemoglobin 29 PG (27-34); Mean Corpuscular Volume 83.7 FL (87-102); Mean Platelet Volume 11.4 FL (9.6-12.0); Monocytes # 0.7 10*3/uL (0.11-0.8); Monocytes % 7.2 % (1.7-12.7); Neutrophils # 6.1 10*3/uL (1.4-7.4); Neutrophils % 61.2 % (38.7-73.9); Platelet Count 332 T/CUMM (130-400); Red Blood Count 4.06 MC/CUMM (3.8-5.5); Red Cell Distribution Width 13.4 % (9.3-17.3)
[2016-10-04 05:36] LABS: Calcium 9.1 MG/DL (8.5-10.1); Magnesium 2.1 MG/DL (1.8-2.4); Osmolality,Calculated 283.5 MOS/KG (273-304); Potassium 4.4 MMOL/L (3.5-5.1)
--- NOTE | 2016-10-04 06:05 | XRay Report ---
Exam: XR chest 1V portable Date: 10/03/2016 11:19 PM Indication: Hypotension history of ID Comparison: 09/14/2016 Technical: AP portable Findings: Mild cardiomegaly the mid inspiratory chest. External cardiac leads are present. Mediastinum bony structures are intact. No obvious infiltrates or effusions. Mild to moderate food and debris within the stomach. Impression: 1. Cardiomegaly without decompensation with improved aeration when compared to previous study PROCEDURE INTERPRETED AT [facility] DEPARTMENT OF RADIOLOGY Final Report Signed by: Dr. Jan Greene
--- NOTE | 2016-10-04 06:21 | EKG Report ---
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
[2016-10-04] MEDS: INSULIN NPH/REGULAR 70/30 100 UNIT/ML SUBCUT SCH ×2 (09:12→21:20)
[2016-10-04] MEDS: INSULIN REGULAR 100 UNIT/ML SUBCUT SCH ×3 (09:12→16:30)
[2016-10-04] MEDS: ASPIRIN EC 81 MG TABLET PO SCH (09:12)
[2016-10-04] MEDS: TICAGRELOR 90 MG TABLET PO SCH ×2 (09:12→21:12)
[2016-10-04] MEDS: LISINOPRIL 5 MG TABLET PO SCH (14:14)
[2016-10-04] MEDS: DOXYCYCLINE HYCLATE 100 MG CAPSULE PO SCH ×2 (14:14→21:11)
[2016-10-04] MEDS: NEOMYCIN/POLYMYXIN/HC OTIC SOLN 10 ML BOTTLE BOTH EARS SCH ×2 (14:15→21:11)
[2016-10-04] MEDS ORDERED: SIMVASTATIN 40 MG TABLET PO SCH (21:00)
[2016-10-05] MEDS: SODIUM CHLORIDE 0.9% 1,000 ML IV SCH (03:13)
[2016-10-05] MEDS ORDERED: ALPRAZolam 0.5 MG TABLET PO ONE (03:38)
[2016-10-05] MEDS ORDERED: CARVEDILOL 12.5 MG TABLET PO ONE (04:00)
[2016-10-05 06:40] LABS: Calcium 9.5 MG/DL (8.5-10.1); Magnesium 1.8 MG/DL (1.8-2.4); Osmolality,Calculated 289.6 MOS/KG (273-304); Potassium 3.9 MMOL/L (3.5-5.1)
[2016-10-05] MEDS: INSULIN REGULAR 100 UNIT/ML SUBCUT SCH ×2 (08:07→12:19)
[2016-10-05] MEDS: ASPIRIN EC 81 MG TABLET PO SCH (08:07)
[2016-10-05] MEDS: TICAGRELOR 90 MG TABLET PO SCH (08:07)
[2016-10-05] MEDS: DOXYCYCLINE HYCLATE 100 MG CAPSULE PO SCH (08:07)
[2016-10-05] MEDS: NEOMYCIN/POLYMYXIN/HC OTIC SOLN 10 ML BOTTLE BOTH EARS SCH (08:07)
[2016-10-05] MEDS: LISINOPRIL 5 MG TABLET PO SCH (08:07)
[2016-10-05] MEDS: INSULIN NPH/REGULAR 70/30 100 UNIT/ML SUBCUT SCH (08:08)
[2016-10-05] MEDS ORDERED: CARVEDILOL 12.5 MG TABLET PO SCH (09:00)
--- NOTE | 2016-10-05 10:25 | Discharge Summary ---
<Aden Amin - Last Filed: 10/05/16 10:22> Hospital Course - Hospital Course Hospital Course: This is a very pleasant 46-year-old female that presented to the ED at [facility] on last night for the evaluation of "low blood pressure and dizziness". The patient has a medical history significant for hypertension , myocardial infarction, congestive heart failure, coronary artery disease, insulin-dependent diabetes mellitus, peripheral neuropathy, cataracts, dyslipidemia, GERD, and right arm fracture. Patient has a surgical history significant for cardiac catheterization with stent placement 4, left eye cataract extraction, cholecystectomy, and hysterectomy. The patient reported the onset of symptoms 2 weeks prior to presentation. She reported that she had been seen several times in the ER within the last 2 weeks with similar complaints and generalized weakness. She reported that her medications had recently been adjusted and her lisinopril and Lasix doses were increased. At the time of ED presentation, the patient was noted to be grossly hypotensive with a blood pressure 67/48. The patient was rehydrated with 2 L of normal saline and her blood pressure responded normalizing to 135/86. Labs were obtained which reported her white blood cell count 10.0, hemoglobin 11.6, hematocrit 34.0, platelet count at 332. Sodium was noted at 139, potassium 4.4 , chloride 104, carbon dioxide 23, anion gap 16.4, BUN at 25 creatinine at 1.30 , glucose at 150, calcium 9.1, magnesium 2.1. The patient was subsequently admitted to the telemetry unit for overnight observation. Her antihypertensive agents were held. Her vital signs have remained stable overnight. Her renal function improved her BUN is noted at 14 and creatinine is noted at 0.80. Her blood pressure is stable at 122/71. We have reviewed her home medications and adjusted her SHEREE inhibitors. Her lisinopril has been reduced to 5 mg p.o. daily and her Lasix will be restarted at 20 mg twice daily. I have spoke with the patient in great detail regarding the medication changes. 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 She has been hemodynamically stable. She is eager to go home. She will follow with her primary provider Dr. Cho. Discharge Plan - Discharge Data Disposition: Disch To Home/Self Care - Discharge Medications New Lisinopril [Prinivil] 5 mg PO DAILY #30 tablet Neomycin/Polymyx/Hc Otic Soln [Cortisporin Otic Soln] 4 drop BOTH EARS TID # 1 bottle Carvedilol [Coreg] 12.5 mg PO BID #60 tablet Furosemide Tab [Lasix Tab] 20 mg PO BID DIURETIC #60 tablet Continue Insulin NPH Hum/Reg Insulin Hm [NovoLIN 70/30] 30 units SUBCUT BID Insulin Regular, Human [NovoLIN R] 10 unit SUBCUT TIDAC MDD 90UNITS/24H Ticagrelor [Brilinta] 90 mg PO BID #60 tablet HYDROcodone/ACETAMIN 5-325 [Ramsay 5-325] 1 tablet PO Q4H PRN #7 tablet PRN Reason: Pain Mild (1-3) Simvastatin [Zocor] 40 mg PO BEDTIME Aspirin EC Tab 81 mg PO DAILY tablet Cyclobenzaprine [Flexeril] 5 mg PO TID PRN #15 tablet PRN Reason: Spasms Discontinued Lisinopril 40 mg PO DAILY Furosemide Tab [Lasix Tab] 40 mg PO BID #0 Carvedilol 25 mg PO BID - Follow Up or Referral - Forms/Instructions Exam - Constitutional Vitals: Period Temp Pulse Resp BP Sys/Vizcarra Pulse Ox Last 24 Hr 97.5 F-98.7 F 95-105 16-20 122-184/60-90 97-100 Discharge Results Procedures and tests throughout hospitalization: Pending Orders 10/04/16 Urine Culture Routine Labs on day of discharge: Labs from last 24 hours 10/05/16 10/05/16 10/05/16 11:50 06:56 03:52 Sodium 146 H Potassium 3.9 Chloride 110 H Carbon Dioxide 24 Anion Gap 15.9 H BUN 14 D Creatinine 0.80 GFR Calculation 122 BUN/Creatinine Ratio 17.00 Glucose 72 L POC Glucose 127 H 206 H Calculated Osmolality 289.6 Calcium 9.5 Magnesium 1.8 10/04/16 10/04/16 19:25 16:29 Sodium Potassium Chloride Carbon Dioxide Anion Gap BUN Creatinine GFR Calculation BUN/Creatinine Ratio Glucose POC Glucose 170 H 94 Calculated Osmolality Calcium Magnesium Preliminary micro results at discharge 10/04/16 Unknown Urine Culture - Preliminary Urine,Voided No Growth at 24 hours. DS: Provider Date of admission: 10/04/16 01:32 Primary care physician: . No PCP Attending physician on admission: Jose Angel Quintanilla MD Discharging clinician: Adne Amin CNP <Les Bower Jr. - Last Filed: 10/05/16 12:59> Hospital Course - Time spent with patient Time with patient DS: Greater than 30 minutes Diagnosis - Discharge Diagnosis (1) CAD (coronary artery disease) Status: Chronic (2) DM2 (diabetes mellitus, type 2) Status: Chronic (3) Hypotension Status: Acute Discharge Plan - Discharge Data Condition at Discharge: Stable Activity: resume usual activities as tolerated - Forms/Instructions Additional Discharge Instructions: Follow with Dr. Cho in 2 weeks. Exam - Head Head exam: Present: normal inspection - Eye Eye exam: Present: EOMI - ENT ENT exam: Present: normal exam - Respiratory Respiratory exam: Present: clear to auscultation bilaterally - Cardiovascular Cardiovascular exam: Present: regular rate and rhythm - Neurological Exam Neurological exam: Present: alert, oriented X3, CN II-XII intact - Psychiatric Psychiatric exam: Present: normal affect, normal mood - Skin Skin exam: Present: normal color, dry
[2016-10-05 11:55] VITALS: BP 122/65
[2016-10-05] MEDS ORDERED: FUROSEMIDE 20 MG TABLET PO SCH (16:00)
== END 2016-10-05 13:56 | disposition home or self-care (01) ==
LOC: N.EDINP 22:49 → N.ED 22:49 → SUATTDRO 10-04 01:32 → N.TELES 10-04 02:03
PROVIDERS: ADMIT Family Medicine; ATTEND Internal Medicine Nephrology

== ENCOUNTER 2016-10-14 14:15 | Inpatient (IN) ==
[2016-10-14] MEDS ORDERED: SODIUM CHLORIDE 0.9% 500 ML IV STA (15:02)
--- NOTE | 2016-10-14 15:09 | Emergency Department Note ---
Arrival - Arrival Chief Complaint: Blood Pressure ED Nursing Triage Note: pt was seen at pcp and had a bp in the 60s. pt was told to go home and rest. pt was unable to get out of car when she got home. pt has been off all bp meds for a week Mode of Arrival: Stretcher Limitations: No Limitations Source: Patient - History of Present Illness HPI Narrative: This 46-year-old black female presents 24 hours after leaving AMA after recommendation for admission. And another child the patient has had persistent problems with labile blood pressure since having a combined stroke and in myocardial infarct 6 weeks ago. Today she wishes to pursue admission as she, as expected, had worse problems with labile blood pressure after leaving the ER yesterday. She denies any syncope, nausea, vomiting, shortness of breath, or chest pain. At rest in bed she is in no acute distress. Allergies/Adverse Reactions: Allergies Allergy/AdvReac Type Severity Reaction Status Date / Time levofloxacin [From Levaquin] Allergy Unknown/Unable Verified 10/13/16 12:21 to obtain Penicillins Allergy RASH Verified 10/13/16 12:21 Home Medications: Home Medications Medication Instructions Recorded Confirmed Type Insulin NPH Hum/Reg Insulin Hm 30 units SUBCUT BID 07/09/14 10/13/16 History [NovoLIN 70/30] Insulin Regular, Human [NovoLIN R] 10 unit SUBCUT TIDAC MDD 09/14/16 10/13/16 History 90UNITS/24H Simvastatin [Zocor] 40 mg PO BEDTIME 09/14/16 10/13/16 History Aspirin EC Tab 81 mg PO DAILY tablet 09/17/16 10/13/16 Rx Clopidogrel [Plavix] 75 mg PO DAILY 10/10/16 10/13/16 History Review of System - Review of System 12 point system: reviewed and no additional remarkable complaints except as stated - Review of System Constitutional: Present: as per HPI Respiratory: Present: as per HPI Cardiovascular: Present: as per HPI Gastrointestinal: Present: as per HPI Medical,Surgical,& Family Hx - Medical History Cardio: History of: CHF, CAD, Hypertension, [place] Neurology: History of: Peripheral Neuropathy No history of: Seizures HEENT: History of: Eye Problem (Cataract) Endocrine: History of: Diabetes Mellitus (IDDM), Dyslipidemia Gastrointestinal: History of: GERD Musculoskeletal: History of: Musculoskeletal Problems (Right arm fracture remotely) - Surgical History Cardiac Surgeries: Sugical HX of: Cardiac Catheterization (stents X4) HEENT Surgeries: Surgical HX of: Eye Surgery (02/05/2013-left eye cataract extraction) Abdominal Surgeries: Surgical HX of: Cholecystectomy, EGD Reproductive Surgeries: Surgical HX of;: Gynecologic Surgery, Hysterectomy (2006 ) - Family History Family History: Reports;: Family Cancer, Family Diabetes, Family Heart Disease, Family Stroke - Social History Smoking Status: Never smoker Frequency of Alcohol Use: None Type of Drug Use: None Exam Physical Examination: GENERAL: Well developed, well nourished black female in no acute distress. HEENT: Normocephalic. No trauma. Moist mucous membranes. EOMI. PERRLA. ENT NML NECK: Supple. No adenopathy. CARDIAC: Regular. No murmurs. Heart rate 110 CHEST: Clear to auscultation. No respiratory distress. O2 sat 100% ABDOMEN: Soft. Nontender. Active bowel sounds. EXTREMITIES: No trauma. Normal ROM. No pedal edema. SKIN: No diaphoresis. No rash. NEURO: Alert. Oriented 3. Left lid lag and left facial droop associated with 4 out of 5 left-sided weakness compared to 5 out of 5 on the right. Vital Signs: Vital Signs Temperature 97.9 F 10/14/16 14:20 Pulse Rate 110 H 10/14/16 14:20 Respiratory Rate 18 10/14/16 14:20 Blood Pressure 83/37 10/14/16 14:20 O2 Sat by Pulse Oximetry 100 10/14/16 14:20 Course - Reevaluation(s) Reevaluation #1: Discussed with patient at length her plans and we have agreed she will be admitted today for further evaluation neurologically - Consultations Consultation #1: Discussed with hospitalist service who will admit for further evaluation treatment. Disposition Clinical Impression: Recurrent hypotension, Status post recent stroke, Status post recent AR, Cystitis Case discussed with: patient Disposition: Still a Patient Condition: Stable Time of Disposition: 15:26
[2016-10-14] MEDS ORDERED: DOXYCYCLINE HYCLATE INJ 100 MG in SODIUM CHLORIDE 0.9% 100 ML IV STA (15:24)
[2016-10-14] MEDS ORDERED: DOXYCYCLINE HYCLATE 100 MG VIAL ONE (16:24)
[2016-10-14 16:39] LABS: Basophils % 0.2 % (0.0-0.8); Eosinophils % 0.2 % (0.00-10.9); Hematocrit 30.9 VOL% (35.7-47.0); Hemoglobin 10.6 GM/DL (12.0-16.0); Immature Granulocytes % 0.3 %; Immature Granulocytes Absolute 0.04 #; Lymphocytes # 3.9 10*3/uL (1.4-4.0); Lymphocytes % 30.2 % (21.3-54.2); Mean Corpuscular HGB Conc 34.3 GM/DL (32-36); Mean Corpuscular Hemoglobin 29 PG (27-34); Mean Corpuscular Volume 84.4 FL (87-102); Mean Platelet Volume 11.7 FL (9.6-12.0); Monocytes # 0.9 10*3/uL (0.11-0.8); Monocytes % 6.7 % (1.7-12.7); Neutrophils # 8.1 10*3/uL (1.4-7.4); Neutrophils % 62.4 % (38.7-73.9); Platelet Count 284 T/CUMM (130-400); Red Blood Count 3.66 MC/CUMM (3.8-5.5); Red Cell Distribution Width 13.2 % (9.3-17.3); White Blood Count 12.9 T/CUMM (4-12)
--- NOTE | 2016-10-14 16:39 | Hospitalist History & Physical ---
Assessment and Plan - Time spent with patient Time spent with patient: Greater than 30 minutes (1) Left-sided weakness Status: Acute Assessment and plan: Admit with monitor bed. consult Neuro. MRI of brain w/o in a.m.; MRA of head and neck with contrast.; IV fluids; start antibiotic therapy for UTI; Sliding scale coverage for diabetes management. cardiac/diabetic diet. Current Visit: Yes (2) Hypotension Status: Acute Assessment and plan: Start IV fluids and hydrate. Start antibiotic therapy for UTI. Current Visit: No History of Present Illness Chief complaint: generalized weakness;low BP History of present illness: Ms. Martel is a pleasant 46 year old black female presented to [facility] ER for further evaluation;she reports that she went to her primary care physician office and was noted to have a low BP; when she got home she started to feel weak and unable to get out of the car. EMS brought her to the ER for further evaluation. Medical History: CHF; CAD; Hypertension; [place] (august/ ) ; peripheral neuropathy; Diabets; GERD; dyslipidemia Surgical history: cardiac catherization (August stents) ; left eye cataract extraction; hysterectomy; cholecystectomy. Patient reports just feeling generally weak but much more on the left side. Patient was seen in the ED on 10/13/16 for hypotension and weakness but patient left AMA and refused being admitted for further evaluation at that time. At time of ER evalaution: BP 83/37, temp 97.9; resp rate 18; HR 110. Awake Alert and oriented x3. Labs obtained: WBC 12.9, hemoglobin 10.6, hematocrit 30.9, platelet 284. Blood culture drug urine screen ordered urinalysis ordered are pending at this time. After brief discussion wiht Dr funez and Dr Arce, hospitalist it is in agreement to admit patient to monitor bed for further evaluation. Medications to reconciled to follow. Code status: Full Code. Home Medications Medication Instructions Recorded Confirmed Type Insulin NPH Hum/Reg Insulin Hm 30 units SUBCUT BID 07/09/14 10/14/16 History [NovoLIN 70/30] Allergies Allergy/AdvReac Type Severity Reaction Status Date / Time levofloxacin [From Levaquin] Allergy Unknown/Unable Verified 10/13/16 12:21 to obtain Penicillins Allergy RASH Verified 10/13/16 12:21 Medical,Surgical,& Family Hx - Medical History Cardio: History of: CHF, CAD, Hypertension, [place] Neurology: History of: Peripheral Neuropathy No history of: Seizures HEENT: History of: Eye Problem (Cataract) Endocrine: History of: Diabetes Mellitus (IDDM), Dyslipidemia Gastrointestinal: History of: GERD Musculoskeletal: History of: Musculoskeletal Problems (Right arm fracture remotely) - Surgical History Cardiac Surgeries: Sugical HX of: Cardiac Catheterization (stents X4) HEENT Surgeries: Surgical HX of: Eye Surgery (02/05/2013-left eye cataract extraction) Abdominal Surgeries: Surgical HX of: Cholecystectomy, EGD Reproductive Surgeries: Surgical HX of;: Gynecologic Surgery, Hysterectomy (2006 ) - Family History Family History: Reports;: Family Cancer, Family Diabetes, Family Heart Disease, Family Stroke - Social History Smoking Status: Never smoker Frequency of Alcohol Use: None Type of Drug Use: None Review of systems: ROS completed and pertinent positives and negatives in HPI. Exam - Constitutional Vitals: Period Temp Pulse Resp BP Sys/Vizcarra Pulse Ox Last 24 Hr 97.9 F-97.9 F 110-110 18-18 83-83/37-37 100 General appearance: normal weight, no acute distress - Head Head exam: Present: normal inspection - Eye Eye exam: Present: EOMI Pupils: Present: MARITZA - Neck Neck exam: Present: normal inspection - Respiratory Respiratory exam: Present: clear to auscultation bilaterally - Cardiovascular Cardiovascular exam: Present: regular rate and rhythm - GI/Abdominal GI/Abdominal exam: Present: normal bowel sounds, soft. Absent: tenderness, rebound - Extremities Exam Extremities exam: Present: other (left sided weakness (strength decreased on left side) with left sided slight droop of the mouth and left eye.) - Neurological Exam Neurological exam: Present: alert, oriented X3 - Psychiatric Psychiatric exam: Present: normal affect, normal mood - Skin Skin exam: Present: normal color, warm, dry Results - Labs Lab Results: I have reviewed the past 24 hour labs Labs: 10/14/16: WBC 12.9, hemoglobin 10.7 hematocrit 30.9 platelets 284 sodium 140 potassium 3.9 BUN 30 creatinine 1.5 glucose 192 AST 20 ALT 25 alkaline phosphate 151
[2016-10-14 16:59] LABS: Bilirubin,Total 0.4 MG/DL (0.2-1.0); Calcium 9.1 MG/DL (8.5-10.1); Osmolality,Calculated 289.4 MOS/KG (273-304); Potassium 3.9 MMOL/L (3.5-5.1); Total Protein 6.8 G/DL (6.4-8.3)
[2016-10-14] MEDS ORDERED: LABETALOL 20 MG/4 ML SYRINGE IV PRN (17:11)
[2016-10-14] MEDS ORDERED: DEXTROSE 50% 25 GM/50 ML VIAL IV PRN (17:21)
[2016-10-14] MEDS ORDERED: GLUCAGON 1 MG VIAL IM PRN (17:21)
[2016-10-14] MEDS ORDERED: CLOPIDOGREL 75 MG TABLET PO STA (17:28)
[2016-10-14] MEDS ORDERED: SODIUM CHLORIDE 0.9% 1,000 ML IV SCH (17:30)
--- NOTE | 2016-10-14 17:51 | Ultrasound Report ---
Bilateral carotid Doppler. Indication: Left-sided weakness. Grayscale, color-flow, and spectral analysis performed and interpreted. There is mild mixed atherosclerotic change seen at each carotid bulb. The right internal carotid artery peak systolic velocity is 79 cm/s, with an IC/CC ratio of 0.7. The left internal carotid artery peak systolic velocity is 111 cm/s, with an IC/CC ratio 0.7. There is antegrade flow within each vertebral artery. Impression: Using NASCET criteria, findings consistent with less than 50% stenosis bilaterally. PROCEDURE INTERPRETED AT [facility] DEPARTMENT OF RADIOLOGY Final Report Signed by: Dr. Palak Aguilar
[2016-10-14 18:05] LABS: Risk Ratio 3.8; VLDL CHOLESTEROL 27.8 MG/DL
[2016-10-14 18:12] LABS: Troponin I Only 0.289 NG/ML (0.00-0.045)
[2016-10-14] MEDS: INSULIN LISPRO 100 UNIT/ML SUBCUT SCH (22:10)
[2016-10-14] MEDS: INSULIN NPH/REGULAR 70/30 100 UNIT/ML SUBCUT SCH (22:11)
[2016-10-14] MEDS: TICAGRELOR 90 MG TABLET PO SCH (22:11)
[2016-10-14] MEDS: ATORVASTATIN 40 MG TABLET PO SCH (22:11)
[2016-10-15] MEDS: diphenhydrAMINE CAP 25 MG CAPSULE PO PRN ×2 (00:59→21:02)
[2016-10-15] MEDS: DOXYCYCLINE HYCLATE INJ 100 MG in SODIUM CHLORIDE 0.9% 100 ML IV SCH ×2 (04:13→22:36)
[2016-10-15 06:09] LABS: Basophils % 0.1 % (0.0-0.8); Hematocrit 32.9 VOL% (35.7-47.0); Hemoglobin 11.3 GM/DL (12.0-16.0); Immature Granulocytes % 0.3 %; Immature Granulocytes Absolute 0.03 #; Lymphocytes # 3.3 10*3/uL (1.4-4.0); Lymphocytes % 30.6 % (21.3-54.2); Mean Corpuscular HGB Conc 34.3 GM/DL (32-36); Mean Corpuscular Hemoglobin 29 PG (27-34); Mean Corpuscular Volume 83.3 FL (87-102); Mean Platelet Volume 11.8 FL (9.6-12.0); Monocytes # 0.7 10*3/uL (0.11-0.8); Monocytes % 6.4 % (1.7-12.7); Neutrophils # 6.7 10*3/uL (1.4-7.4); Neutrophils % 62.6 % (38.7-73.9); Platelet Count 302 T/CUMM (130-400); Red Blood Count 3.95 MC/CUMM (3.8-5.5); White Blood Count 10.7 T/CUMM (4-12)
[2016-10-15 06:47] LABS: Calcium 9.3 MG/DL (8.5-10.1)
[2016-10-15 06:48] LABS: Osmolality,Calculated 290.8 MOS/KG (273-304)
[2016-10-15] MEDS ORDERED: CLOPIDOGREL 75 MG TABLET PO SCH (09:00)
[2016-10-15] MEDS: ASPIRIN 325 MG TABLET PO SCH (09:09)
[2016-10-15] MEDS: TICAGRELOR 90 MG TABLET PO SCH ×2 (09:09→21:00)
[2016-10-15] MEDS: INSULIN NPH/REGULAR 70/30 100 UNIT/ML SUBCUT SCH ×2 (09:11→21:02)
[2016-10-15] MEDS: INSULIN LISPRO 100 UNIT/ML SUBCUT SCH ×4 (09:11→21:01)
--- NOTE | 2016-10-15 12:01 | Hospitalist Progress Note ---
Assessment and Plan (1) Recent myocardial infarction Status: Chronic Assessment and plan: s/p multiple reza Current Visit: No (2) DM2 (diabetes mellitus, type 2) Status: Chronic Assessment and plan: SSI Current Visit: Yes Qualifiers: Diabetes mellitus complication status: without complication (3) History of percutaneous coronary intervention Status: Acute Current Visit: No (4) Hypotension Status: Acute Assessment and plan: Blood pressure had been ok since admission Current Visit: Yes (5) Left-sided weakness Status: Acute Assessment and plan: Presentation is concerning for cva, but symptoms have been going on for a couple of weeks MRI brain PT/OT Neurology has been consulted Current Visit: Yes Hospitalist: Subjective Interval history: No acute events overnight. Patient reports to me that she was recently taken off her blood pressure medications due to hypotension. The other day her BP was elevated with systolic in 180s, she took a lisinopril. Became hypotensive again after this. She also reports left sided weakness and facial changes. Exam - Constitutional Vitals: Period Temp Pulse Resp BP Sys/Vizcarra Pulse Ox Last 24 Hr 97.1 F-98.1 F 110-119 18-20 83-161/37-97 99-100 General appearance: normal weight - Head Head exam: Present: normocephalic, atraumatic - Eye Eye exam: Present: EOMI Pupils: Present: MARITZA - ENT ENT exam: Present: normal exam - Neck Neck exam: Present: normal inspection - Respiratory Respiratory exam: Present: clear to auscultation bilaterally. Absent: rhonchi, wheezes - Cardiovascular Cardiovascular exam: Present: regular rate and rhythm - GI/Abdominal GI/Abdominal exam: Present: normal bowel sounds, soft. Absent: tenderness, rebound - Extremities Exam Extremities exam: Present: normal inspection - Back Exam Back exam: Present: normal inspection - Neurological Exam Neurological exam: Present: alert, oriented X3 - Psychiatric Psychiatric exam: Present: normal affect, normal mood - Skin Skin exam: Present: warm, intact Results - Labs CBC & BMP: 10/15/16 04:53 10/15/16 04:53
--- NOTE | 2016-10-15 12:06 | Cardiology Consult Note ---
I, Rashida Lama RN, am scribing for, and in the presence of, Alvin Camarillo MD 12:02. Assessment and Plan - Time spent with patient Time spent with patient: Greater than 30 minutes (Due to assessment, planning, documentation, medication review) (1) CAD (coronary artery disease) Problem details: with elevated troponin Status: Chronic Assessment and plan: I think this is clinically stable. Her recent catheterization demonstrated widely patent stents. Current Visit: Yes Qualifiers: Qualified Code(s): I25.10 - Atherosclerotic heart disease of [place] coronary artery without angina pectoris (2) Hypotension Status: Acute Assessment and plan: Etiology is unclear. Certainly this may be related to her diabetes and even neuropathy. She appears to have some other type of neurologic process ongoing that may be contributing to this. Her medications have been stopped and she certainly has a marked rapid response to lisinopril. We will need to probably start her on very low-dose of beta-bryan for her tachycardia. Current Visit: Yes (3) Left-sided weakness Status: Acute Assessment and plan: This is being evaluated by hospitalist service and urology. Current Visit: Yes (4) DM2 (diabetes mellitus, type 2) Status: Chronic Assessment and plan: This is being managed by the hospitalist service. Current Visit: Yes History of Present Illness - Data of Consult Patient: known to practice within the last 3 years Consult date: 10/14/16 Requesting Physician: Zoey Guadalupe - Consult Narrative Reason for consult: Hx CAD History of present illness: Case Coordinator: Dr. Camarillo PCP: Dr. Kim Ms. Martel is a 46 year old female who has recently been followed by Dr. Camarillo with a history of CAD, IDDM, hypertension, and dyslipidemia. She had a heart cath September 01, 2016 in [place] and was found to have severe triple-vessel coronary artery disease. She had PTCA of the proximal first diagonal coronary artery and drug-eluting stents to the LAD, second OMB, mid RCA, and proximal RPDA. She had more chest pain in September and was admitted to our facility. She had heart catheterization September 17 that found her stents to be widely patent and recommendations were made for risk factor modification and medical therapy. Echocardiogram done September 14, 2016 with ejection fraction of 50%. Other surgical history includes left cataract surgery. Family history is positive for both parents with diabetes and hypertension. She reports she is a lifetime non-smoker. She has been having weakness of the left side of her body as well as slight droop of her mouth and left eye that started at some point after her discharge from [place]. She also reports feeling sluggish, dizzy, and having blurred vision. She has been having some hypotension. She reports his symptoms have gradually been getting worse and yesterday she was unable to get out of her car with the assistance of her children. She reports her blood pressure was 74/43 and she was extremely weak. She has not had any chest pain or shortness of breath. She had carotid ultrasound done yesterday and findings were consistent with less than 50% stenosis bilaterally. She is scheduled for MRI of the brain and MRA of the head and neck this morning. Neurology has also been consulted. Her blood pressure in the emergency room on admission was 83/37, these have continued to increase. This morning it is 161/97. She has had trivial troponin elevation at 0.289, 0.253, and 0.177. Creatinine on admission was 1.50 , she was given some fluid and this morning it is 0.80. She says she has had not much of an appetite recently and has not been eating or drinking very well. She has been tachycardic with heart rates ranging from 110-120. This morning she is seen resting in bed sleeping. She arouses easily. She says she feels much better today. She does continue to have weakness of her left side and reports her hands and feet feel numb. She denies any chest pain or shortness of breath. I have personally interviewed and examined the patient and review the chart. I have discussed this case with Rashida Lama RN. This patient has a history of coronary disease and stenting and recently had a cardiac catheterization with stents patent. She has been having issues with hypotension but also some development of neurologic issues. Some this may have extended back when she was originally evaluated and had to be intubated and had intervention with her microinfarction in August 2016 at [place]. Her blood pressure issues over been a recent on and off issue. In fact we saw her last week and has stopped her other blood pressure medications. At home she stated over the weekend her pressure was markedly elevated once and she took a lisinopril and then became hypotensive. She was seen in the emergency room apparently over the weekend and was treated for her drop in blood pressure was discharged. She was admitted after feeling weak. Her blood pressure in the emergency room was 83/ 37 but since being in the hospital her pressures have been okay. Her pulse rate has been greater than 100 though. The etiology of her blood pressure issues have been really unknown. She has had significant glucose in her urine's as well as a low normal specific gravity. Should be noted the patient seems to respond to fluids each time she has these issues. CC: Efra Perez MD - Home Medications and Allergies Home Medications: Home Medications Medication Instructions Recorded Confirmed Type Insulin NPH Hum/Reg Insulin Hm 30 units SUBCUT BID 07/09/14 10/14/16 History [NovoLIN 70/30] Allergies/Adverse Reactions: Allergies Allergy/AdvReac Type Severity Reaction Status Date / Time levofloxacin [From Levaquin] Allergy Unknown/Unable Verified 10/13/16 12:21 to obtain Penicillins Allergy RASH Verified 10/13/16 12:21 - Constitutional Constitutional: Present: as per HPI - EENT Eyes: Present: blurry vision, requires corrective lense Ears: Present: ear pain. Absent: tinnitus Nose, mouth and throat: Present: headache(s). Absent: dysphagia, epistaxis, neck pain - Cardiovascular Cardiovascular: Present: lightheadedness. Absent: chest pain at rest, chest pain with activity, diaphoresis, dyspnea, dyspnea on exertion, edema, radiating jaw, neck or arm pain, orthopnea, palpitations - Respiratory Respiratory: Absent: cough, dyspnea, hemoptysis, dyspnea on exertion, wheezing - Gastrointestinal Gastrointestinal: Present: nausea, vomiting. Absent: abdominal pain, constipation, diarrhea, hematemesis, hematochezia, melena - Genitourinary Genitourinary: Absent: dysuria, hematuria - Musculoskeletal Musculoskeletal: Present: limited range of motion, muscle weakness. Absent: back pain - Neurological Neurological: Present: abnormal gait, abnormal speech, dizziness, frequent falls , headache(s). Absent: confusion, syncope - Psychiatric Psychiatric: Absent: anxiety, confusion, depression - Endocrine Endocrine: Present: fatigue - Hematologic/Lymphatic Hematologic/Lymphatic: Absent: easy bleeding, easy bruising Medical,Surgical,& Family Hx - Medical History Cardio: History of: CHF, CAD, Hypertension, PR Psychological: History of: Depression Neurology: History of: Peripheral Neuropathy, Vertigo HEENT: History of: Eye Problem (Cataract) Endocrine: History of: Diabetes Mellitus (IDDM), Dyslipidemia Respiratory: History of: Intubation, Pneumonia Genitourinary: History of: Recurring Urinary Tract Infections Gastrointestinal: History of: GERD Musculoskeletal: History of: Back/Neck Problems, Musculoskeletal Problems ( Right arm fracture remotely) - Surgical History Cardiac Surgeries: Sugical HX of: Cardiac Catheterization (stents X4) HEENT Surgeries: Surgical HX of: Eye Surgery (02/05/2013-left eye cataract extraction) Abdominal Surgeries: Surgical HX of: EGD Reproductive Surgeries: Surgical HX of;: Section (x3), Gynecologic Surgery, Hysterectomy (2007) Orthopedic Surgeries: Surgical HX of;: Implanted Devices (heart stents) - Family History Family History: Reports;: Family Diabetes (Mother and father), Family Hypertension (Mother and father), Family Stroke - Social History Smoking Status: Never smoker Have you smoked in the last 12 months: No Frequency of Alcohol Use: None Type of Drug Use: None Lives With:: Parent Functional capacity: uses cane/walker Physical Examination Vital Signs Temp Pulse Resp BP Pulse Ox 97.9 F 110 H 18 83/37 100 10/14/16 14:20 10/14/16 14:20 10/14/16 14:20 10/14/16 14:20 10/14/16 14:20 General: Present: Appears Well, No Apparent Distress HEENT: Present: PERRL, Mucus Membranes Moist Neck: Present: Supple Neck, Midline Trachea, No Bruit Cardiac: Present: Regular Rhythm, No Murmur, Tachycardia Lungs: Present: Normal Breath Sounds, No Wheeze, Rales, Rhonchi Neuro: Present: Numbness, Weakness, Other (Unable really to close her right eye normally). Absent: Resting Tremor, Essential Tremor Abdomen: Present: Soft, Active Bowel Sounds, Non-Tender. Absent: Distended Skin: Absent: Rash, Suspicious Lesions Musculoskeletal: Present: Decreased Range of Motion, No Pain Gait: Present: Poor Gait Extremities: Present: No Edema, Normal Upper Extr. Pulses, Normal Lower Extr. Pulses. Absent: Normal Gait Result/EKG - Labs CBC & BMP: 10/15/16 04:53 10/15/16 04:53 Lab Results: I have reviewed the past 24 hour labs Labs: Laboratory Results - last 24 hr 10/14/16 10/14/16 10/14/16 15:53 15:53 15:53 WBC 12.9 H RBC 3.66 L Hgb 10.6 L D Hct 30.9 L MCV 84.4 L MCH 29 MCHC 34.3 RDW 13.2 Plt Count 284 MPV 11.7 Neut % (Auto) 62.4 Lymph % (Auto) 30.2 Erath % (Auto) 6.7 Eos % (Auto) 0.2 Baso % (Auto) 0.2 Neut # (Auto) 8.1 H Lymph # (Auto) 3.9 Erath # (Auto) 0.9 H Eos # (Auto) 0.0 Baso # (Auto) 0.0 Immature Gran % 0.3 Nucleated RBC % 0.0 Immature Gran # 0.04 Nucleated RBCs # 0.00 Sodium 140 Potassium 3.9 Chloride 105 Carbon Dioxide 24 Anion Gap 14.9 BUN 30 H Creatinine 1.50 H GFR Calculation 57 BUN/Creatinine Ratio 20.00 Glucose 192 H POC Glucose Hemoglobin A1c Calculated Osmolality 289.4 Lactic Acid 2.0 Calcium 9.1 Total Bilirubin 0.40 AST 20 ALT 25 Alkaline Phosphatase 151 H Troponin I Total Protein 6.8 Albumin 3.0 L Globulin 3.8 H Albumin/Globulin Ratio 0.7 L Triglycerides Cholesterol LDL Cholesterol VLDL Cholesterol HDL Cholesterol Heart Disease Risk Ratio 10/14/16 10/14/16 10/14/16 16:10 17:09 19:56 WBC RBC Hgb Hct MCV MCH MCHC RDW Plt Count MPV Neut % (Auto) Lymph % (Auto) Erath % (Auto) Eos % (Auto) Baso % (Auto) Neut # (Auto) Lymph # (Auto) Erath # (Auto) Eos # (Auto) Baso # (Auto) Immature Gran % Nucleated RBC % Immature Gran # Nucleated RBCs # Sodium Potassium Chloride Carbon Dioxide Anion Gap BUN Creatinine GFR Calculation BUN/Creatinine Ratio Glucose POC Glucose Hemoglobin A1c 10.3 H Calculated Osmolality Lactic Acid Calcium Total Bilirubin AST ALT Alkaline Phosphatase Troponin I 0.289 H D 0.253 H Total Protein Albumin Globulin Albumin/Globulin Ratio Triglycerides 139 Cholesterol 167 LDL Cholesterol 89.0 VLDL Cholesterol 27.8 HDL Cholesterol 44 Heart Disease Risk Ratio 3.80 10/14/16 10/14/16 10/15/16 20:37 23:23 04:53 WBC 10.7 RBC 3.95 Hgb 11.3 L Hct 32.9 L MCV 83.3 L MCH 29 MCHC 34.3 RDW 13.0 Plt Count 302 MPV 11.8 Neut % (Auto) 62.6 Lymph % (Auto) 30.6 Erath % (Auto) 6.4 Eos % (Auto) 0.0 Baso % (Auto) 0.1 Neut # (Auto) 6.7 Lymph # (Auto) 3.3 Erath # (Auto) 0.7 Eos # (Auto) 0.0 Baso # (Auto) 0.0 Immature Gran % 0.3 Nucleated RBC % 0.0 Immature Gran # 0.03 Nucleated RBCs # 0.00 Sodium Potassium Chloride Carbon Dioxide Anion Gap BUN Creatinine GFR Calculation BUN/Creatinine Ratio Glucose POC Glucose 224 H Hemoglobin A1c Calculated Osmolality Lactic Acid Calcium Total Bilirubin AST ALT Alkaline Phosphatase Troponin I 0.177 H D Total Protein Albumin Globulin Albumin/Globulin Ratio Triglycerides Cholesterol LDL Cholesterol VLDL Cholesterol HDL Cholesterol Heart Disease Risk Ratio 10/15/16 04:53 WBC RBC Hgb Hct MCV MCH MCHC RDW Plt Count MPV Neut % (Auto) Lymph % (Auto) Erath % (Auto) Eos % (Auto) Baso % (Auto) Neut # (Auto) Lymph # (Auto) Erath # (Auto) Eos # (Auto) Baso # (Auto) Immature Gran % Nucleated RBC % Immature Gran # Nucleated RBCs # Sodium 144 Potassium 4.0 Chloride 110 H Carbon Dioxide 21 Anion Gap 17.0 H BUN 21 H Creatinine 0.80 GFR Calculation 121 BUN/Creatinine Ratio 26.00 H Glucose 139 H POC Glucose Hemoglobin A1c Calculated Osmolality 290.8 Lactic Acid Calcium 9.3 Total Bilirubin AST ALT Alkaline Phosphatase Troponin I Total Protein Albumin Globulin Albumin/Globulin Ratio Triglycerides Cholesterol LDL Cholesterol VLDL Cholesterol HDL Cholesterol Heart Disease Risk Ratio I, Alvin Camarillo MD, personally performed the services described in this documentation, ascribed by Rashida Lama RN in my presence, and it is both accurate and complete .
--- NOTE | 2016-10-15 13:29 | Magnetic Resonance Report ---
Exam: MR head/brain w and wo con Date: 10/15/2016 Comparison: CT brain 10/13/2016 Indication: Left-sided weakness Technical: 1.5 Natalia magnet Axial T1 pre-and postcontrast, ADC, DWI, FLAIR, gradient echo and FSE T2 Sagittal T1 precontrast, FLAIR Coronal postcontrast T1 Contrast: 20 cc Dotarem Findings: Exam reveals abnormal ADC/diffusion imaging. The exam reveals focal areas of abnormal signal in the bilateral periventricular subcortical white matter regions as well as along the posterior aspect in the subcortical junction bilaterally. This is seen at the posterior parietal lobe. The brainstem, cerebellum exhibit normal signal characteristics. The cerebral hemispheres exhibit blotchy areas and punctate areas of abnormal signal in the periventricular subcortical white matter regions bilaterally. No contrast enhancing lesions are present. The corpus callosum is unremarkable. The seventh and eighth cranial nerves and cerebral pontine angles are intact. The pituitary gland, infundibulum and optic chiasm are intact. The paranasal sinuses exhibit minimal fluid in the left maxillary sinus. Minimal inflammation in the right frontal sinus and in the ethmoid air cells. The remaining paranasal sinuses demonstrate normal signal characteristics. The mastoid sinuses are unremarkable. The globes and intra-and extraconal spaces are unremarkable. Impression: 1. Multiple small lacunar infarctions in the bilateral centrum semiovale and subcortical white matter junction regions including the frontal temporal and parietal lobe region bilaterally. 2. Bilateral multiple areas of abnormal signal in the periventricular subcortical white matter regions. This could represent infarctions based on the DWI image and ADC images today. The possibility of demyelinating process does still exists as well as toxic metabolites. Vasculitis is also considered but seems less likely as well. 3. Minimal inflammation in the paranasal sinuses. PROCEDURE INTERPRETED AT [facility] DEPARTMENT OF RADIOLOGY Final Report Signed by: Dr. Jan Greene
--- NOTE | 2016-10-15 13:34 | Magnetic Resonance Report ---
Exam: MR angio head wo con (COW), Date: 10/15/2016 Indication: Left-sided weakness Comparison: None Technical 1.5 Natalia Axial 3-D slab imaging and 3-D reproduction images without gadolinium enhancement. Findings: The right A1 segment is absent. The left A1 and A2 segments intact. The anterior communicating artery is patent. The right A2 segment is demonstrated from the left side. The middle cerebral M1 and M2 bifurcation trifurcation regions are intact. The basilar artery is unremarkable. The posterior cerebral P1 and P2 segments are intact. The posterior communicating arteries or not well seen. The internal carotid arteries and vertebral arteries are patent. Impression: 1. Absence of the right A1 segment with filling of the A2 segments and the left carotid. No obvious aneurysm present. Exam: MR angio neck wo/w con Date: 10/15/2016 Indication: Left-sided weakness Comparison: None Technical 1.5 Natalia magnet with 3-D axial and coronal imaging with and without 20 cc of Dotarem enhancement with 3-D reconstructive images of the carotid arteries. Findings: The brachiocephalic artery and left common carotid artery and subclavian arteries are intact. The right subclavian is unremarkable. The right common carotid artery, internal and external carotid arteries reveal no high-grade stenosis or occlusion. Very minimal plaque in the takeoff the right ICA. The left common carotid artery, internal and external carotid artery demonstrated without high-grade stenosis or occlusion present. The distal right ICA measures approximately 3.9 mm in the distal left ICA measures 4.6 mm. Impression: 1. No obvious high-grade stenosis or occlusions was less than 15% stenosis suspected bilaterally in the internal carotid arteries. Minimal plaque present. PROCEDURE INTERPRETED AT [facility] DEPARTMENT OF RADIOLOGY Final Report Signed by: Dr. Jan Greene
[2016-10-15] MEDS: ACETAMINOPHEN 325 MG TABLET PO PRN (13:49)
[2016-10-15] MEDS: METOPROLOL SUCCINATE XL 25 MG TABLET PO SCH (13:49)
--- NOTE | 2016-10-15 16:16 | Neurology Consult Note ---
History of Present Illness History of present illness: Ms. Martel is a 46 year old right-handed -[place] lady who was recently hospitalized at [facility]. Patient had an ST elevation SC and underwent cardiac stenting 4. She had a repeat catheter when she was admitted to [facility] in September showing patent stents and ejection fraction of 45% during [place] hospitalization it looked like she was intubated at that time as well. She reported that while she was in [place] in August 2016 she was told that she may have had a stroke because she has had left-sided facial droop and difficulty with speech and left-sided weakness. MRI of the brain performed on revealed multiple small lacunar infarction in the bilateral centrum semiovale and subcortical white matter junction lesions including the frontotemporal and parietal lobe bilaterally. She also has bilateral multiple areas of abnormal signal in the periventricular subcortical white matter region. Differential diagnoses included the monitoring process, vasculitis etc. She has actually right facial weakness which is peripheral in etiology such as seen in Figueroa's palsy. Home Medications Medication Instructions Recorded Confirmed Type Insulin NPH Hum/Reg Insulin Hm 30 units SUBCUT BID 07/09/14 10/14/16 History [NovoLIN 70/30] Allergies Allergy/AdvReac Type Severity Reaction Status Date / Time levofloxacin [From Levaquin] Allergy Unknown/Unable Verified 10/13/16 12:21 to obtain Penicillins Allergy RASH Verified 10/13/16 12:21 12 point system: reviewed and no additional remarkable complaints except as stated Medical,Surgical,& Family Hx - Medical History Cardio: History of: CHF, CAD, Hypertension, SC No history of: Aneurysm, Cardiac Dysrhythmia, Cerebrovascular Disease, Congenital Heart Disease, Pacemaker, PVD, Valvular Heart Disease, Cardiovascular Problems Psychological: History of: Depression No history of: Anxiety Disorders, ADHD, Behavior Problems, Bipolar Disorder, Previous Suicide Attempt, Psychiatric/Substance Abuse Tx, Schizophrenia, Violent Behavior, Psychiatric Problems Neurology: History of: Peripheral Neuropathy, Vertigo No history of: Brain Aneurysm, Cerebral Hemorrhage, Cerebrovascular Accident , Cerebral Palsy, Dementia, Migraine, Multiple Sclerosis, Parkinson's Disease, Seizures, TIA, Neurologocal Cancer HEENT: History of: Eye Problem (Cataract) Endocrine: History of: Diabetes Mellitus (IDDM), Dyslipidemia Rheumatology: No history of;: Fibromyalgia, Gout, Myasthenia Gravis, Rheumatoid Arthritis, Rheumatological Problems Respiratory: History of: Intubation, Pneumonia No history of: Asthma, Bronchitis, COPD, Obstructive Sleep Apnea, Pulmonary Embolism, Pulmonary Hypertension, Lung Cancer, Respiratory Problems Genitourinary: History of: Recurring Urinary Tract Infections Gastrointestinal: History of: GERD No history of: Bowel Obstruction, Clostridium Difficile, Crohn's Disease, Esophageal Varices, Gastrointestinal Bleed, Hemorrhoids, Hematochezia, Hepatitis , Liver Problems, Pancreatitis, Polyps, Ulcerative Colitis, Gastrointestinal Cancer, GI Problems Musculoskeletal: History of: Back/Neck Problems, Musculoskeletal Problems ( Right arm fracture remotely) No history of: Degenerative Disk Disease, Herniated Disk, Osteoporosis, Musculoskeletal Cancer - Surgical History Cardiac Surgeries: Sugical HX of: Cardiac Catheterization (stents X4) Patient Denies: Femoral-Popliteal Bypass Graft, Carotid Endarterectomy, Internal Defibrillator, Vascular Access Devices Thoracic Surgeries: Patient denies;: Organ Transplant, Lobectomy Neurologic Surgeries: Patient denies: Brain Aneurysm, Cerebral Hemorrhage, Neurologic Surgery HEENT Surgeries: Surgical HX of: Eye Surgery (02/05/2013-left eye cataract extraction) Patient denies: Carotid Endarterectomy Abdominal Surgeries: Surgical HX of: EGD Patient denies: Appendectomy, Cholecystectomy, Colonoscopy, Gastric Bypass Surgery, Hernia Repair, Splenectomy Reproductive Surgeries: Surgical HX of;: Section (x3), Gynecologic Surgery, Hysterectomy (2007) Patient denies;: Breast Surgery, Genitourinary Surgery Orthopedic Surgeries: Surgical HX of;: Implanted Devices (heart stents) Patient denies;: Orthopedic Surgery, Spinal Surgery, Total Hip Replacement, Total Knee Replacement - Family History Family History: Reports;: Family Cancer, Family Diabetes (Mother and father), Family Heart Disease, Family Hypertension (Mother and father), Family Stroke - Social History Smoking Status: Never smoker Frequency of Alcohol Use: None Type of Drug Use: None Exam - Constitutional Vitals: Period Temp Pulse Resp BP Sys/Vizcarra Pulse Ox Last 24 Hr 97.1 F-98.1 F 113-120 18-20 108-161/70-97 99-100 Exam: GENERAL: Patient is in no acute distress. NECK: Neck is supple. There is no JVD. No carotid bruits present. No thyroid masses. CVS: First and second heart sounds are normal. There is no S3 present. Regular rate and rhythm. RESPIRATORY: Lungs are clear to auscultation without any rales or rhonchi. ABDOMEN: Soft and non-tender. Bowel sounds are present. There is no hepatosplenomegaly. EXT: There is no palpable edema. Peripheral pulses are present. Skin: No rashes Central Nervous system: General: Alert, awake and Oriented x 3 Speech: Fluent Comprehension: Intact and normal Facial expressions: Normal Cranial Nerves: CN1/Olfactory: Normal CN II/ Optic: Normal, Visual Rader unreliable CN III, and : MARITZA & EOMI CN V: Normal & intact CN VII: Right lower motor neuron type facial weak CNVIII: Normal CN XI/X/XI/XII: Intact and Normal Motor: Bulk and Tone is normal. Strength in the right 3/5 Strength in the left 3/5 Sensory: Decreased for all the modalities of PP, LT and temp sense Reflexes: 1+ and symmetrical Cerebellar function: Slow finger to nose and heel to sharma testing. Toes: Equivocal Gait: Walking with min to mod assist. Results - Labs CBC & BMP: 10/15/16 04:53 10/15/16 04:53 Assessment and Plan (1) Right-sided Figueroa's palsy Status: Acute Assessment and plan: Right facial weakness is consistent with Figueroa's palsy. Etiology is not clear though. Current Visit: Yes (2) Abnormal brain MRI Status: Acute Assessment and plan: These findings are suggestive of a stroke however given the finding of right Figueroa's palsy other differential would include infectious process, vasculitis and possibly demanding disorder. She is on Brilinta due to recent cardiac cath and stent which cannot be stopped for LP. She definitely needs LP for further clarification. She is running extremely high blood sugar level (500 or more) so empirically steroids cannot be used at this time either. Will go ahead and give her a trial of IVIG without wasting any more time. We will also go ahead and do MRI of cervical spine and thoracic spine to rule out other lesions. Consult TMR Thank you for the consult Current Visit: Yes
[2016-10-15] MEDS ORDERED: IMMUNE GLOBULIN IV SCH (16:30)
[2016-10-15] MEDS ORDERED: [UNRECOGNIZED DRUG - OTHER] IV SCH (16:30)
[2016-10-15] MEDS: IMMUNE GLOBULIN 10% 20 GM, IMMUNE GLOBULIN 10% 10 GM, IMMUNE GLOBULIN 10% 5 GM in PREMI... IV SCH (17:48)
[2016-10-15] MEDS: ATORVASTATIN 40 MG TABLET PO SCH (21:00)
[2016-10-16 07:01] LABS: Basophils % 0.2 % (0.0-0.8); Eosinophils % 0.1 % (0.00-10.9); Hemoglobin 12.3 GM/DL (12.0-16.0); Immature Granulocytes % 0.4 %; Immature Granulocytes Absolute 0.04 #; Lymphocytes # 2.3 10*3/uL (1.4-4.0); Mean Corpuscular HGB Conc 34.2 GM/DL (32-36); Mean Corpuscular Hemoglobin 28 PG (27-34); Mean Corpuscular Volume 83.1 FL (87-102); Mean Platelet Volume 11.4 FL (9.6-12.0); Monocytes # 0.6 10*3/uL (0.11-0.8); Monocytes % 6.2 % (1.7-12.7); Neutrophils # 6.7 10*3/uL (1.4-7.4); Neutrophils % 69.1 % (38.7-73.9); Platelet Count 319 T/CUMM (130-400); Red Blood Count 4.33 MC/CUMM (3.8-5.5); White Blood Count 9.7 T/CUMM (4-12)
[2016-10-16 07:26] LABS: Calcium 9.4 MG/DL (8.5-10.1); Magnesium 1.8 MG/DL (1.8-2.4); Osmolality,Calculated 287.3 MOS/KG (273-304); Potassium 4.1 MMOL/L (3.5-5.1)
[2016-10-16] MEDS: DOXYCYCLINE HYCLATE INJ 100 MG in SODIUM CHLORIDE 0.9% 100 ML IV SCH ×2 (11:38→21:59)
[2016-10-16] MEDS: ASPIRIN 325 MG TABLET PO SCH (11:57)
[2016-10-16] MEDS: METOPROLOL SUCCINATE XL 25 MG TABLET PO SCH ×2 (11:57→22:00)
[2016-10-16] MEDS: TICAGRELOR 90 MG TABLET PO SCH ×2 (11:58→22:00)
[2016-10-16] MEDS: INSULIN NPH/REGULAR 70/30 100 UNIT/ML SUBCUT SCH ×2 (11:58→22:00)
[2016-10-16] MEDS: INSULIN LISPRO 100 UNIT/ML SUBCUT SCH ×4 (11:59→23:31)
[2016-10-16] MEDS: POLYETHYLENE GLYCOL POWDER 17 GM PACK PO SCH (12:01)
--- NOTE | 2016-10-16 15:17 | Cardiology Progress Note ---
I, Rashida Lama RN, am scribing for, and in the presence of, Alvin Camarillo MD 15:09. Assessment and Plan (1) CAD (coronary artery disease) Problem details: with elevated troponin Status: Chronic Assessment and plan: I think this is clinically stable. Her recent catheterization demonstrated widely patent stents. This is clinically stable. Current Visit: Yes Qualifiers: Coronary Disease-Associated Artery/Lesion type: [place] artery [place] vs. transplanted heart: [place] heart Associated angina: without angina Qualified Code(s): I25.10 - Atherosclerotic heart disease of [place] coronary artery without angina pectoris (2) Hypotension Status: Acute Assessment and plan: Etiology is unclear. Certainly this may be related to her diabetes and even neuropathy. Must also question whether there is something [id number] or other medication she is taking that we are not aware of or told about that could cause this. She appears to have some other type of neurologic process ongoing that may be contributing to this. Her medications have been stopped and she certainly has a marked rapid response to lisinopril. We will continue to titrate her beta-bryan for her tachycardia. We will check orthostatic pressures. Current Visit: Yes (3) Left-sided weakness Status: Acute Assessment and plan: This is being evaluated by hospitalist services and neurology. She has some right facial weakness. Current Visit: Yes (4) DM2 (diabetes mellitus, type 2) Status: Chronic Assessment and plan: This is being managed by the hospitalist service. Current Visit: Yes Qualifiers: Diabetes mellitus complication status: without complication Cardiology - PN: Subj Interval history: Sales Team Member: Dr. Camarillo PCP: Dr. Kim SUMMARY: Ms. Martel is a 46 year old female who has recently been followed by Dr. Camarillo with a history of CAD, IDDM, hypertension, and dyslipidemia. She had a heart cath September 01, 2016 in [place] and was found to have severe triple- vessel coronary artery disease. She had PTCA of the proximal first diagonal coronary artery and drug-eluting stents to the LAD, second OMB, mid RCA, and proximal RPDA. She had more chest pain in September and was admitted to our facility. She had heart catheterization September 17 that found her stents to be widely patent and recommendations were made for risk factor modification and medical therapy. Echocardiogram done September 14, 2016 with ejection fraction of 50 %. Other surgical history includes left cataract surgery. Family history is positive for both parents with diabetes and hypertension. She reports she is a lifetime non-smoker. She has been having weakness of the left side of her body as well as slight droop of her mouth and left eye that started at some point after her discharge from [place]. She also reports feeling sluggish, dizzy, and having blurred vision. She has been having some hypotension. She reports his symptoms have gradually been getting worse and yesterday she was unable to get out of her car with the assistance of her children. She reports her blood pressure was 74/43 and she was extremely weak. She has not had any chest pain or shortness of breath. She had carotid ultrasound done yesterday and findings were consistent with less than 50% stenosis bilaterally. She is scheduled for MRI of the brain and MRA of the head and neck this morning. Neurology has also been consulted. Her blood pressure in the emergency room on admission was 83/37, these have continued to increase. This morning it is 161/97. She has had trivial troponin elevation at 0.289, 0.253, and 0.177. Creatinine on admission was 1.50 , she was given some fluid and this morning it is 0.80. She says she has had not much of an appetite recently and has not been eating or drinking very well. She has been tachycardic with heart rates ranging from 110-120. October 15, 2016: This morning she is seen resting in bed sleeping. She arouses easily. She says she feels much better today. She does continue to have weakness of her left side and reports her hands and feet feel numb. She denies any chest pain or shortness of breath. October 16, 2016: Ms. Martel is complaining of abdominal discomfort this morning, she reports she hasn't had a bowel movement in several days. Her nurse is checking with hospitalist regarding this. She denies any chest pain of shortness of breath. Her pressures have increased, at 161/101 this morning. She continues to be tachycardic with heart rates in the 110's. Except for elevated glucoses, her labs are unremarkable. She contiues to have left-sided weakness and facial droop. Dr. Barrera has seen in consultation. Patient personally interviewed and examined by me and chart reviewed. I agree with the above note. We will do orthostatic blood pressures. Also will increase her beta-bryan a little bit. Is interested when she comes in the hospital gets fluids her blood pressures improve. It is quickly after she goes home that she has drop in her blood pressures and return to the hospital. This does raise the issue whether not the patient is taking some other medication at home were not aware of or she is becoming dehydrated possibly from some other reason. She certainly may have some type of autonomic dysfunction related to her diabetes or otherwise. We will continue to monitor this. Exam (Progress Note) - Constitutional Vitals: Period Temp Pulse Resp BP Sys/Vizcarra Pulse Ox Last 24 Hr 96.8 F-98.1 F 63-120 20-20 104-167/56-101 95-100 General appearance: no acute distress, over weight - Head Head exam: Absent: abrasion, hematoma - Eye Eye exam: Present: other (patch to right eye). Absent: periorbital swelling, laceration to eyelids - Respiratory Respiratory exam: Present: clear to auscultation bilaterally. Absent: accessory muscle use, chest wall tenderness - Cardiovascular Cardiovascular exam: Present: tachycardia. Absent: rubs, systolic murmur - GI/Abdominal GI/Abdominal exam: Present: normal bowel sounds, tenderness, soft. Absent: distended - Extremities Exam Extremities exam: Absent: calf tenderness, edema - Neurological Exam Neurological exam: Present: alert, oriented X3, abnormal gait, other (Left- sided weakness, right facial droop, unable to close right eye) - Psychiatric Psychiatric exam: Present: normal affect, normal mood - Skin Skin exam: Present: warm, dry Result/EKG - Labs CBC & BMP: 10/16/16 06:21 10/16/16 06:21 Lab Results: I have reviewed the past 24 hour labs Labs: Laboratory Results - last 24 hr 10/15/16 10/15/16 10/15/16 11:18 15:29 16:01 WBC RBC Hgb Hct MCV MCH MCHC RDW Plt Count MPV Neut % (Auto) Lymph % (Auto) [place] % (Auto) Eos % (Auto) Baso % (Auto) Neut # (Auto) Lymph # (Auto) [place] # (Auto) Eos # (Auto) Baso # (Auto) Immature Gran % Nucleated RBC % Immature Gran # Nucleated RBCs # Sodium Potassium Chloride Carbon Dioxide Anion Gap BUN Creatinine GFR Calculation BUN/Creatinine Ratio Glucose 173 POC Glucose 262 H > 500 H* Calculated Osmolality Calcium Magnesium 10/15/16 10/15/16 10/16/16 17:51 19:50 06:21 WBC 9.7 RBC 4.33 Hgb 12.3 Hct 36.0 MCV 83.1 L MCH 28 MCHC 34.2 RDW 13.0 Plt Count 319 MPV 11.4 Neut % (Auto) 69.1 Lymph % (Auto) 24.0 [place] % (Auto) 6.2 Eos % (Auto) 0.1 Baso % (Auto) 0.2 Neut # (Auto) 6.7 Lymph # (Auto) 2.3 [place] # (Auto) 0.6 Eos # (Auto) 0.0 Baso # (Auto) 0.0 Immature Gran % 0.4 Nucleated RBC % 0.0 Immature Gran # 0.04 Nucleated RBCs # 0.00 Sodium Potassium Chloride Carbon Dioxide Anion Gap BUN Creatinine GFR Calculation BUN/Creatinine Ratio Glucose POC Glucose 242 H 113 H Calculated Osmolality Calcium Magnesium 10/16/16 10/16/16 06:21 07:44 WBC RBC Hgb Hct MCV MCH MCHC RDW Plt Count MPV Neut % (Auto) Lymph % (Auto) [place] % (Auto) Eos % (Auto) Baso % (Auto) Neut # (Auto) Lymph # (Auto) [place] # (Auto) Eos # (Auto) Baso # (Auto) Immature Gran % Nucleated RBC % Immature Gran # Nucleated RBCs # Sodium 141 Potassium 4.1 Chloride 107 Carbon Dioxide 20 L Anion Gap 18.1 H BUN 18 Creatinine 0.80 GFR Calculation 121 BUN/Creatinine Ratio 22.00 H Glucose 180 H POC Glucose 220 H Calculated Osmolality 287.3 Calcium 9.4 Magnesium 1.8 Marquise Cordova John Timothy, MD, personally performed the services described in this documentation, ascribed by Rashida Lama RN in my presence, and it is both accurate and complete .
--- NOTE | 2016-10-16 15:25 | Neurology Progress Note ---
Neurology - PN : Subjective Interval history: Patient seems to be doing better. No new problems reported. Tolerating IVIG well. She will go to [facility] hopefully by Friday. Exam (Progress Note) - Constitutional Vitals: Period Temp Pulse Resp BP Sys/Vizcarra Pulse Ox Last 24 Hr 96.8 F-97.9 F 63-118 20-20 104-167/56-101 95-100 Exam: GENERAL: Patient is in no acute distress. NECK: Neck is supple. There is no JVD. No carotid bruits present. No thyroid masses. CVS: First and second heart sounds are normal. There is no S3 present. Regular rate and rhythm. RESPIRATORY: Lungs are clear to auscultation without any rales or rhonchi. ABDOMEN: Soft and non-tender. Bowel sounds are present. There is no hepatosplenomegaly. EXT: There is no palpable edema. Peripheral pulses are present. Skin: No rashes Central Nervous system: General: Alert, awake and Oriented x 3 Speech: Fluent Comprehension: Intact and normal Facial expressions: Normal Cranial Nerves: CN1/Olfactory: Normal CN II/ Optic: Normal, Visual Rader unreliable CN III, and : MRAITZA & EOMI CN V: Normal & intact CN VII: Right lower motor neuron type facial weak CNVIII: Normal CN XI/X/XI/XII: Intact and Normal Motor: Bulk and Tone is normal. Strength in the right 3/5 Strength in the left 3/5 Sensory: Decreased for all the modalities of PP, LT and temp sense Reflexes: 1+ and symmetrical Cerebellar function: Slow finger to nose and heel to sharma testing. Toes: Equivocal Gait: Walking with min to mod assist. Results - Labs CBC & BMP: 10/16/16 06:21 10/16/16 06:21 Assessment and Plan (1) Right-sided Figueroa's palsy Status: Acute Assessment and plan: Right facial weakness is consistent with Figueroa's palsy. Etiology is not clear though. Current Visit: Yes (2) Abnormal brain MRI Status: Acute Assessment and plan: Continue IVIG We will order MRI cervical and thoracic spine Current Visit: Yes
--- NOTE | 2016-10-16 16:20 | Hospitalist Progress Note ---
Assessment and Plan (1) Recent myocardial infarction Status: Chronic Assessment and plan: s/p multiple reza Current Visit: No (2) DM2 (diabetes mellitus, type 2) Status: Chronic Assessment and plan: SSI Refused her long acting yesterday Current Visit: Yes Qualifiers: Diabetes mellitus complication status: without complication (3) History of percutaneous coronary intervention Status: Acute Current Visit: No (4) Hypotension Status: Acute Assessment and plan: Blood pressure had been ok since admission Cardiology assisting Started on low dose metoprolol Agree with serial orthostatic vitals Current Visit: Yes (5) Left-sided weakness Status: Acute Assessment and plan: Presentation is concerning for cva, but symptoms have been going on for a couple of weeks MRI brain with multiple small lacunar infarctions and multiple areas of abnormal signal in the periventricular subcortical white matter Neurology assisting Facial droop related to christine's palsy MRI cervical and thoracic spine ordered PT/OT Plan is for TMR at discharge Current Visit: Yes Hospitalist: Subjective Interval history: No acute events overnight. Complains of dizziness this afternoon. Exam - Constitutional Vitals: Period Temp Pulse Resp BP Sys/Vizcarra Pulse Ox Last 24 Hr 96.8 F-97.9 F 63-116 20-20 104-167/56-101 95-100 General appearance: over weight - Head Head exam: Present: other (left facial droop) - Eye Eye exam: Present: EOMI Pupils: Present: MARITZA - ENT ENT exam: Present: normal exam - Neck Neck exam: Present: normal inspection - Respiratory Respiratory exam: Present: clear to auscultation bilaterally. Absent: rhonchi, wheezes - Cardiovascular Cardiovascular exam: Present: regular rate and rhythm - GI/Abdominal GI/Abdominal exam: Present: normal bowel sounds, soft. Absent: tenderness, rebound - Extremities Exam Extremities exam: Present: normal inspection - Back Exam Back exam: Present: normal inspection - Neurological Exam Neurological exam: Present: alert, oriented X3 - Psychiatric Psychiatric exam: Present: normal affect, normal mood - Skin Skin exam: Present: warm, intact Results - Labs CBC & BMP: 10/16/16 06:21 10/16/16 06:21
--- NOTE | 2016-10-16 17:50 | Magnetic Resonance Report ---
MRI of the cervical spine with and without contrast. Indication: Demyelinating disorder. 19 cc Dotarem. Sagittal T2, sagittal T2 fat-sat, sagittal T1, sagittal T1 fat-sat postcontrast, axial T2, axial gradient echo, axial T1, axial T1 fat-sat postcontrast. No prior study. The appearance of the craniovertebral junction is within normal limits. The normal curvature of the cervical spine is demonstrated. Appropriate alignment is seen. Throughout. The bone marrow signal is normal. The cord signal is normal. The caliber of the cord is normal. There is no abnormal enhancement. At C5-C6, there is loss of disc space height and degenerative endplate change with moderate anterior and mild bilateral posterior lateral osteophyte formation. There is a left paracentral disc protrusion, which effaces the thecal sac mildly and causes mild left lateral recess narrowing. At C6-C7, there is slight desiccation. No significant compromise of the spinal canal. Impression: No cord lesions are seen. At C5-C6, there is moderate spondylosis with a left paracentral disc protrusion. PROCEDURE INTERPRETED AT [facility] OF [facility] Final Report Signed by: Dr. Palak Aguilar
--- NOTE | 2016-10-16 17:53 | Magnetic Resonance Report ---
MRI of the thoracic spine with and without contrast. Indication: Demyelinating disorder. 19 cc Dotarem. Sagittal T2, sagittal T1, sagittal STIR, axial T2, axial T1, sagittal T1 fat-sat plus contrast, axial T1 fat-sat plus contrast. No comparison studies. The normal kyphosis of the thoracic spine is demonstrated. Appropriate alignment is seen throughout. The conus is normally located. The bone marrow signal is normal. The cord signal is normal. No focal cord lesions are seen and there is no abnormal enhancement. No significant disc pathology. Impression: Normal study PROCEDURE INTERPRETED AT [facility] DEPARTMENT OF RADIOLOGY Final Report Signed by: Dr. Palak Aguilar
--- NOTE | 2016-10-16 18:10 | Event Note ---
Notify per nursing staff of patient sustained in a fall upon return from MRI. Apparently, the patient was attempting to get out of the ambulance when she sustained a fall twisting her right ankle causing strain to her right leg and back. We will order x-rays of the right leg, right ankle, and back to assess for injury.
--- NOTE | 2016-10-16 19:32 | XRay Report ---
Cervical spine. Indication: Fall, injury, and pain. No previous study. The normal curvature of the cervical spine is demonstrated. Appropriate alignment is seen throughout. There is a prominent anterior osteophyte at C5, with a fracture through the base which is probably corticated and chronic. There is calcification in the anterior longitudinal ligament at C6-C7. There is calcification in the left carotid artery. No loss of vertebral body height. No acute fracture lines are visible. No evidence of facet dislocation. Impression: Spondylitic changes. Chronic appearing fracture through the base of an anterior osteophyte at C5. No definite acute fracture. PROCEDURE INTERPRETED AT [facility] DEPARTMENT OF RADIOLOGY Final Report Signed by: Dr. Palak Aguilar
--- NOTE | 2016-10-16 19:34 | XRay Report ---
Spine, 2 views. Indication: Fall with pain. The normal kyphosis of the thoracic spine is demonstrated. Appropriate alignment is seen throughout. There is no loss of vertebral body height. Degenerative changes are present. No fracture lines are visible. Impression: No acute abnormality. PROCEDURE INTERPRETED AT [facility] DEPARTMENT OF RADIOLOGY Final Report Signed by: Dr. Palak Aguilar
--- NOTE | 2016-10-16 19:34 | XRay Report ---
Right humerus, 2 views. Indication: Fall with pain. No osseous, articular, or soft tissue abnormality is seen. PROCEDURE INTERPRETED AT [facility] DEPARTMENT OF RADIOLOGY Final Report Signed by: Dr. Palak Aguilar
--- NOTE | 2016-10-16 19:36 | XRay Report ---
Right hip, 2 views. Indication: Fall with pain. There is mild acetabular spurring. The hip joint spaces well-maintained. There is no evidence of fracture or dislocation. Impression: No acute abnormality. PROCEDURE INTERPRETED AT [facility] DEPARTMENT OF RADIOLOGY Final Report Signed by: Dr. Palak Aguilar
--- NOTE | 2016-10-16 19:38 | XRay Report ---
Right ankle, 2 views. Indication: Injury with pain. Atherosclerotic calcifications are noted. There is a spur along the posterior aspect of the calcaneus, with some heel calcification. No evidence of acute fracture or dislocation. Impression: No acute abnormality. PROCEDURE INTERPRETED AT [facility] DEPARTMENT OF RADIOLOGY Final Report Signed by: Dr. Palak Aguilar
--- NOTE | 2016-10-16 19:39 | XRay Report ---
Right foot, 2 views. Indication: Fall, injury, and pain. Small vessel atherosclerotic disease suggestive of diabetes. Posterior calcaneal spur. No evidence of fracture or dislocation. Impression: No acute abnormality. PROCEDURE INTERPRETED AT [facility] DEPARTMENT OF RADIOLOGY Final Report Signed by: Dr. Palak Aguilar
[2016-10-16] MEDS: CETIRIZINE 10 MG TABLET PO SCH (20:16)
[2016-10-16] MEDS: IMMUNE GLOBULIN 10% 20 GM, IMMUNE GLOBULIN 10% 10 GM, IMMUNE GLOBULIN 10% 5 GM in PREMI... IV SCH (20:17)
[2016-10-16] MEDS: ATORVASTATIN 40 MG TABLET PO SCH (22:00)
[2016-10-16] MEDS: diphenhydrAMINE CAP 25 MG CAPSULE PO PRN (22:00)
[2016-10-17] MEDS: DOXYCYCLINE HYCLATE INJ 100 MG in SODIUM CHLORIDE 0.9% 100 ML IV SCH ×2 (05:18→09:31)
[2016-10-17 07:08] LABS: Basophils % 0.1 % (0.0-0.8); Eosinophils % 0.2 % (0.00-10.9); Hematocrit 34.8 VOL% (35.7-47.0); Hemoglobin 11.9 GM/DL (12.0-16.0); Immature Granulocytes % 0.4 %; Immature Granulocytes Absolute 0.03 #; Mean Corpuscular HGB Conc 34.2 GM/DL (32-36); Mean Corpuscular Hemoglobin 29 PG (27-34); Mean Corpuscular Volume 83.7 FL (87-102); Mean Platelet Volume 11.8 FL (9.6-12.0); Monocytes # 0.7 10*3/uL (0.11-0.8); Monocytes % 7.9 % (1.7-12.7); Neutrophils # 5.7 10*3/uL (1.4-7.4); Neutrophils % 67.4 % (38.7-73.9); Platelet Count 307 T/CUMM (130-400); Red Blood Count 4.16 MC/CUMM (3.8-5.5); Red Cell Distribution Width 13.1 % (9.3-17.3); White Blood Count 8.5 T/CUMM (4-12)
[2016-10-17 07:38] LABS: Calcium 9.4 MG/DL (8.5-10.1); Magnesium 1.9 MG/DL (1.8-2.4); Potassium 4.2 MMOL/L (3.5-5.1)
[2016-10-17] MEDS: ASPIRIN 325 MG TABLET PO SCH (09:27)
[2016-10-17] MEDS: METOPROLOL SUCCINATE XL 25 MG TABLET PO SCH ×2 (09:27→22:14)
[2016-10-17] MEDS: CETIRIZINE 10 MG TABLET PO SCH (09:28)
[2016-10-17] MEDS: INSULIN NPH/REGULAR 70/30 100 UNIT/ML SUBCUT SCH ×2 (09:29→22:14)
[2016-10-17] MEDS: INSULIN LISPRO 100 UNIT/ML SUBCUT SCH ×4 (09:29→22:13)
[2016-10-17] MEDS: TICAGRELOR 90 MG TABLET PO SCH ×2 (09:29→22:13)
[2016-10-17] MEDS: POLYETHYLENE GLYCOL POWDER 17 GM PACK PO SCH (09:30)
[2016-10-17] MEDS: IMMUNE GLOBULIN 10% 20 GM, IMMUNE GLOBULIN 10% 10 GM, IMMUNE GLOBULIN 10% 5 GM in PREMI... IV SCH (10:28)
--- NOTE | 2016-10-17 11:29 | Cardiology Progress Note ---
I, Rashida Lama RN, am scribing for, and in the presence of, Alvin Camarillo MD 11:26. Assessment and Plan (1) CAD (coronary artery disease) Problem details: with elevated troponin Status: Chronic Assessment and plan: I think this is clinically stable. Her recent catheterization demonstrated widely patent stents. This is clinically stable. Current Visit: Yes Qualifiers: Coronary Disease-Associated Artery/Lesion type: [place] artery [place] vs. transplanted heart: [place] heart Associated angina: without angina Qualified Code(s): I25.10 - Atherosclerotic heart disease of [place] coronary artery without angina pectoris (2) Hypotension Status: Acute Assessment and plan: Some of this is been supine or any position but also noting an orthostatic pattern. This may be neuropathic in nature and related to her diabetes or other underlying neurologic issues. As noted above support stockings may be of help as well as maintaining her fluids and decreasing sodium. We must avoid blood pressure medications or antihypertensive this time secondary to dropping her blood pressures. Midodrine may become a treatment of last resort. Current Visit: Yes (3) Left-sided weakness Status: Acute Assessment and plan: This is being evaluated by hospitalist and neurology services and neurology. She has some right facial weakness. Current Visit: Yes (4) DM2 (diabetes mellitus, type 2) Status: Chronic Assessment and plan: This is being managed by the hospitalist service. Current Visit: Yes Qualifiers: Diabetes mellitus complication status: without complication Cardiology - PN: Subj Interval history: [employer] Worker: Dr. Camarillo PCP: Dr. Kim SUMMARY: Ms. Martel is a 46 year old female who has recently been followed by Dr. Camarillo with a history of CAD, IDDM, hypertension, and dyslipidemia. She had a heart cath September 01, 2016 in [place] and was found to have severe triple- vessel coronary artery disease. She had PTCA of the proximal first diagonal coronary artery and drug-eluting stents to the LAD, second OMB, mid RCA, and proximal RPDA. She had more chest pain in September and was admitted to our facility. She had heart catheterization September 17 that found her stents to be widely patent and recommendations were made for risk factor modification and medical therapy. Echocardiogram done September 14, 2016 with ejection fraction of 50 %. Other surgical history includes left cataract surgery. Family history is positive for both parents with diabetes and hypertension. She reports she is a lifetime non-smoker. She has been having weakness of the left side of her body as well as slight droop of her mouth and left eye that started at some point after her discharge from [place]. She also reports feeling sluggish, dizzy, and having blurred vision. She has been having some hypotension. She reports his symptoms have gradually been getting worse and yesterday she was unable to get out of her car with the assistance of her children. She reports her blood pressure was 74/43 and she was extremely weak. She has not had any chest pain or shortness of breath. She had carotid ultrasound done yesterday and findings were consistent with less than 50% stenosis bilaterally. She is scheduled for MRI of the brain and MRA of the head and neck this morning. Neurology has also been consulted. Her blood pressure in the emergency room on admission was 83/37, these have continued to increase. This morning it is 161/97. She has had trivial troponin elevation at 0.289, 0.253, and 0.177. Creatinine on admission was 1.50 , she was given some fluid and this morning it is 0.80. She says she has had not much of an appetite recently and has not been eating or drinking very well. She has been tachycardic with heart rates ranging from 110-120. October 15, 2016: This morning she is seen resting in bed sleeping. She arouses easily. She says she feels much better today. She does continue to have weakness of her left side and reports her hands and feet feel numb. She denies any chest pain or shortness of breath. October 16, 2016: Ms. Martel is complaining of abdominal discomfort this morning, she reports she hasn't had a bowel movement in several days. Her nurse is checking with hospitalist regarding this. She denies any chest pain of shortness of breath. Her pressures have increased, at 161/101 this morning. She continues to be tachycardic with heart rates in the 110's. Except for elevated glucoses, her labs are unremarkable. She contiues to have left-sided weakness and facial droop. Dr. Barrera has seen in consultation. October 17, 2016: Ms. Martel is resting in bed in no acute distress. She denies any chest pain, shortness of breath, or palpitations. She reports she gets extremely tired and fatigued whenever she gets up. She sustained a fall getting out of the ambulance yesterday returning from MRI. She denies any dizziness or syncope with this episode, she just states she was fatigued in her ankle gave way. MRI of the thoracic spine was read as a normal study. MRI of the cervical spine showed no cord lesions and moderate spondylosis with a left paracentral disc protrusion. After the fall she had a thoracic spine x-ray, humerus x-ray, hip x-ray, foot x-ray, cervical spine x-ray, and ankle x-ray; all of these showed no acute abnormality. She says she hurt her hands, knees, and back when she fell, all of these continue to be sore this morning. She has been started on metoprolol 25 mg p.o. twice daily. Her blood pressures have fluctuated, however they have not been as low as when she came in initially. This morning it is 154/93. I do not see any orthostatic blood pressures recorded. Plan is for her to go to [facility] rehab, probably tomorrow. Patient interviewed and examined personally and chart reviewed. I agree with the above. She is going to rehab at this may certainly benefit her. The orthostatic pressures on the chart indicate that indeed her pressures do drop from supine to sitting. 1 of these is significant. Certainly she may have some underlying neuropathy that is causing orthostasis. This though limits are treating her blood pressure this time. Florinef/fludrocortisone use may help with this but may exacerbate her glucose issues. Support stockings may be of benefit. Hopefully with rehab though she will improve. Midodrine would be a last resort. Exam (Progress Note) - Constitutional Vitals: Period Temp Pulse Resp BP Sys/Vizcarra Pulse Ox Last 24 Hr 97.0 F-97.3 F 107-117 20-24 96-154/65-93 96-99 Exam: General appearance: no acute distress, over weight - Head Head exam: Absent: abrasion, hematoma - Eye Eye exam: Absent: periorbital swelling, laceration to eyelids - Respiratory Respiratory exam: Present: clear to auscultation bilaterally. Absent: accessory muscle use, chest wall tenderness - Cardiovascular Cardiovascular exam: Present: tachycardia. Absent: rubs, systolic murmur - GI/Abdominal GI/Abdominal exam: Present: normal bowel sounds, tenderness, soft. Absent: distended - Extremities Exam Extremities exam: Absent: calf tenderness, edema - Neurological Exam Neurological exam: Present: alert, oriented X3, abnormal gait, other (Left- sided weakness, right facial droop, unable to close right eye) - Psychiatric Psychiatric exam: Present: normal affect, normal mood - Skin Skin exam: Present: warm, dry Result/EKG - Labs CBC & BMP: 10/17/16 05:30 10/17/16 05:30 Lab Results: I have reviewed the past 24 hour labs Labs: Laboratory Results - last 24 hr 10/16/16 10/16/16 10/16/16 11:25 15:40 22:01 WBC RBC Hgb Hct MCV MCH MCHC RDW Plt Count MPV Neut % (Auto) Lymph % (Auto) Kane % (Auto) Eos % (Auto) Baso % (Auto) Neut # (Auto) Lymph # (Auto) Kane # (Auto) Eos # (Auto) Baso # (Auto) Immature Gran % Nucleated RBC % Immature Gran # Nucleated RBCs # Sodium Potassium Chloride Carbon Dioxide Anion Gap BUN Creatinine GFR Calculation BUN/Creatinine Ratio Glucose POC Glucose 244 H 288 H 286 H Calculated Osmolality Calcium Magnesium 10/17/16 10/17/16 10/17/16 05:30 05:30 07:20 WBC 8.5 RBC 4.16 Hgb 11.9 L Hct 34.8 L MCV 83.7 L MCH 29 MCHC 34.2 RDW 13.1 Plt Count 307 MPV 11.8 Neut % (Auto) 67.4 Lymph % (Auto) 24.0 Kane % (Auto) 7.9 Eos % (Auto) 0.2 Baso % (Auto) 0.1 Neut # (Auto) 5.7 Lymph # (Auto) 2.0 Kane # (Auto) 0.7 Eos # (Auto) 0.0 Baso # (Auto) 0.0 Immature Gran % 0.4 Nucleated RBC % 0.0 Immature Gran # 0.03 Nucleated RBCs # 0.00 Sodium 136 Potassium 4.2 Chloride 104 Carbon Dioxide 21 Anion Gap 15.2 H BUN 22 H Creatinine 1.00 GFR Calculation 93 BUN/Creatinine Ratio 22.00 H Glucose 224 H POC Glucose 249 H Calculated Osmolality 281.0 Calcium 9.4 Magnesium 1.9 Marquise Cordova John Timothy, MD, personally performed the services described in this documentation, ascribed by Rashida Lama RN in my presence, and it is both accurate and complete .
--- NOTE | 2016-10-17 14:05 | Hospitalist Progress Note ---
Assessment and Plan (1) Recent myocardial infarction Status: Chronic Assessment and plan: s/p multiple reza Current Visit: No (2) DM2 (diabetes mellitus, type 2) Status: Chronic Assessment and plan: SSI Home medications Current Visit: Yes Qualifiers: Diabetes mellitus complication status: without complication (3) History of percutaneous coronary intervention Status: Acute Current Visit: No (4) Hypotension Status: Acute Assessment and plan: Blood pressure had been ok since admission Cardiology assisting Started on low dose metoprolol Agree with serial orthostatic vitals Am cortisol wnl Current Visit: Yes (5) Left-sided weakness Status: Acute Assessment and plan: Presentation is concerning for cva, but symptoms have been going on for a couple of weeks MRI brain with multiple small lacunar infarctions and multiple areas of abnormal signal in the periventricular subcortical white matter Neurology assisting Facial droop 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 Multiple xrays obtained, no fractures appreciated. Today she denies dizziness. Reports feeling weak. Possible discharge to rehab tomorrow. Exam - Constitutional Vitals: Period Temp Pulse Resp BP Sys/Vizcarra Pulse Ox Last 24 Hr 97.0 F-97.5 F 107-119 20-24 96-185/65-150 95-99 General appearance: over weight - Head Head exam: Present: atraumatic, other (left facial droop) - Eye Eye exam: Present: EOMI Pupils: Present: MARITZA - ENT ENT exam: Present: normal exam - Neck Neck exam: Present: normal inspection - Respiratory Respiratory exam: Present: clear to auscultation bilaterally. Absent: rhonchi, wheezes - Cardiovascular Cardiovascular exam: Present: regular rate and rhythm - GI/Abdominal GI/Abdominal exam: Present: normal bowel sounds, soft. Absent: tenderness, rebound - Extremities Exam Extremities exam: Present: normal inspection - Back Exam Back exam: Present: normal inspection - Neurological Exam Neurological exam: Present: alert, oriented X3 - Psychiatric Psychiatric exam: Present: normal affect, normal mood - Skin Skin exam: Present: warm, intact Results - Labs CBC & BMP: 10/17/16 05:30 10/17/16 05:30
[2016-10-17] MEDS: ATORVASTATIN 40 MG TABLET PO SCH (22:13)
[2016-10-18] MEDS: DOXYCYCLINE HYCLATE INJ 100 MG in SODIUM CHLORIDE 0.9% 100 ML IV SCH ×2 (02:13→13:19)
[2016-10-18] MEDS: ACETAMINOPHEN 325 MG TABLET PO PRN (03:48)
[2016-10-18] MEDS: CETIRIZINE 10 MG TABLET PO SCH (09:25)
[2016-10-18] MEDS: TICAGRELOR 90 MG TABLET PO SCH (09:26)
[2016-10-18] MEDS: ASPIRIN 325 MG TABLET PO SCH (09:26)
[2016-10-18] MEDS: METOPROLOL SUCCINATE XL 25 MG TABLET PO SCH (09:26)
[2016-10-18] MEDS: POLYETHYLENE GLYCOL POWDER 17 GM PACK PO SCH (09:26)
[2016-10-18] MEDS: INSULIN LISPRO 100 UNIT/ML SUBCUT SCH ×2 (09:27→13:19)
[2016-10-18] MEDS: INSULIN NPH/REGULAR 70/30 100 UNIT/ML SUBCUT SCH (09:27)
[2016-10-18] MEDS ORDERED: METOPROLOL SUCCINATE XL 50 MG TABLET PO SCH (10:26)
--- NOTE | 2016-10-18 10:29 | Cardiology Progress Note ---
Kelby Cordova April RN, am scribing for, and in the presence of, Alvin Camarillo MD 10:26. Assessment and Plan (1) CAD (coronary artery disease) Problem details: with elevated troponin Status: Chronic Assessment and plan: This is stable. Current Visit: Yes Qualifiers: Coronary Disease-Associated Artery/Lesion type: [place] artery [place] vs. transplanted heart: [place] heart Associated angina: without angina Qualified Code(s): I25.10 - Atherosclerotic heart disease of [place] coronary artery without angina pectoris (2) Hypotension Status: Acute Assessment and plan: This is overall orthostatic in nature and probably related to other medical problems including her diabetes and autonomic dysfunction. Her cardiac adequate is on no medications really to exacerbate the other. Low-dose beta- bryan. She though needs to beta-bryan to try to prevent the sinus tachycardia. This tachycardia also may be part of her autonomic dysfunction. Current Visit: Yes (3) Left-sided weakness Status: Acute Assessment and plan: This is being evaluated by hospitalist services and neurology. She has some right facial weakness. This overall though is stable. Current Visit: Yes (4) DM2 (diabetes mellitus, type 2) Status: Chronic Assessment and plan: This is being managed by the hospitalist service. Current Visit: Yes Qualifiers: Diabetes mellitus complication status: without complication Cardiology - PN: Subj Interval history: [employer] Consultant: Dr. Camarillo PCP: Dr. Kim SUMMARY: Ms. Martel is a 46 year old female who has recently been followed by Dr. Camarillo with a history of CAD, IDDM, hypertension, and dyslipidemia. She had a heart cath September 01, 2016 in [place] and was found to have severe triple- vessel coronary artery disease. She had PTCA of the proximal first diagonal coronary artery and drug-eluting stents to the LAD, second OMB, mid RCA, and proximal RPDA. She had more chest pain in September and was admitted to our facility. She had heart catheterization September 17 that found her stents to be widely patent and recommendations were made for risk factor modification and medical therapy. Echocardiogram done September 14, 2016 with ejection fraction of 50 %. Other surgical history includes left cataract surgery. Family history is positive for both parents with diabetes and hypertension. She reports she is a lifetime non-smoker. She has been having weakness of the left side of her body as well as slight droop of her mouth and left eye that started at some point after her discharge from [place]. She also reports feeling sluggish, dizzy, and having blurred vision. She has been having some hypotension. She reports his symptoms have gradually been getting worse and yesterday she was unable to get out of her car with the assistance of her children. She reports her blood pressure was 74/43 and she was extremely weak. She has not had any chest pain or shortness of breath. She had carotid ultrasound done yesterday and findings were consistent with less than 50% stenosis bilaterally. She is scheduled for MRI of the brain and MRA of the head and neck this morning. Neurology has also been consulted. Her blood pressure in the emergency room on admission was 83/37, these have continued to increase. This morning it is 161/97. She has had trivial troponin elevation at 0.289, 0.253, and 0.177. Creatinine on admission was 1.50 , she was given some fluid and this morning it is 0.80. She says she has had not much of an appetite recently and has not been eating or drinking very well. She has been tachycardic with heart rates ranging from 110-120. October 15, 2016: This morning she is seen resting in bed sleeping. She arouses easily. She says she feels much better today. She does continue to have weakness of her left side and reports her hands and feet feel numb. She denies any chest pain or shortness of breath. October 16, 2016: Ms. Martel is complaining of abdominal discomfort this morning, she reports she hasn't had a bowel movement in several days. Her nurse is checking with hospitalist regarding this. She denies any chest pain of shortness of breath. Her pressures have increased, at 161/101 this morning. She continues to be tachycardic with heart rates in the 110's. Except for elevated glucoses, her labs are unremarkable. She contiues to have left-sided weakness and facial droop. Dr. Barrera has seen in consultation. October 17, 2016: Ms. Martel is resting in bed in no acute distress. She denies any chest pain, shortness of breath, or palpitations. She reports she gets extremely tired and fatigued whenever she gets up. She sustained a fall getting out of the ambulance yesterday returning from MRI. She denies any dizziness or syncope with this episode, she just states she was fatigued in her ankle gave way. MRI of the thoracic spine was read as a normal study. MRI of the cervical spine showed no cord lesions and moderate spondylosis with a left paracentral disc protrusion. After the fall she had a thoracic spine x-ray, humerus x-ray, hip x-ray, foot x-ray, cervical spine x-ray, and ankle x-ray; all of these showed no acute abnormality. She says she hurt her hands, knees, and back when she fell, all of these continue to be sore this morning. She has been started on metoprolol 25 mg p.o. twice daily. Her blood pressures have fluctuated, however they have not been as low as when she came in initially. This morning it is 154/93. I do not see any orthostatic blood pressures recorded. Plan is for her to go to [facility] rehab, probably tomorrow. October 18, 2016: Ms. Martel is seen resting in bed in no acute distress. She denies chest pain, shortness of breath, palpitations. She says she does not feel as weak and fatigued as yesterday. She continues to have left-sided weakness and facial droop. She had some elevated blood pressures yesterday, but they have been better throughout the night. She continues to be tachycardic with heart rates in the 110s. Patient personally interviewed and examined and chart reviewed. Discussed case with Rashida Lama RN. The patient generally is feeling much better. Blood pressure seemed to be a little more stable. She still has sinus tachycardia I think we can go up on her beta-bryan little bit. She has had no chest pain no shortness of breath or other complaints. She is up and about the room better. I agree that rehab would be of great benefit to her. This also allow more time to monitor her heart rates vital signs pressure. We will adjust her follow-up plans with us to 1 months. Exam (Progress Note) - Constitutional Vitals: Period Temp Pulse Resp BP Sys/Vizcarra Pulse Ox Last 24 Hr 97.1 F-99.0 F 108-119 18-20 82-185/51-150 95-100 Exam: General appearance: no acute distress, over weight. She is walking around the room on my arrival. - Head Head exam: Absent: abrasion, hematoma - Eye Eye exam: Absent: periorbital swelling, laceration to eyelids - Respiratory Respiratory exam: Present: clear to auscultation bilaterally. Absent: accessory muscle use, chest wall tenderness - Cardiovascular Cardiovascular exam: Present: tachycardia. Absent: rubs, systolic murmur - GI/Abdominal GI/Abdominal exam: Present: normal bowel sounds, tenderness, soft. Absent: distended - Extremities Exam Extremities exam: Absent: calf tenderness, edema - Neurological Exam Neurological exam: Present: alert, oriented X3, abnormal gait, other (Left- sided weakness, right facial droop, unable to close right eye) - Psychiatric Psychiatric exam: Present: normal affect, normal mood - Skin Skin exam: Present: warm, dry Result/EKG - Labs CBC & BMP: 10/17/16 05:30 10/17/16 05:30 Labs: Laboratory Results - last 24 hr 10/17/16 10/17/16 10/17/16 07:20 07:47 11:51 POC Glucose 249 H 210 H Cortisol 8am Sample 14.4 10/17/16 10/17/16 16:00 20:30 POC Glucose 115 H 197 H Cortisol 8am Sample Specialty Discharge - Follow Up or Referrals Follow up with: Alvin Camarillo MD [Physician] - 1 Month (Follow me in 1 month. Have the office cancel any other follow-up appointments with me.) IMarquise John Timothy, MD, personally performed the services described in this documentation, ascribed by Rashida Lama RN in my presence, and it is both accurate and complete .
--- NOTE | 2016-10-18 12:09 | Discharge Summary ---
Hospital Course - Hospital Course Hospital Course: Ms. Martel is a pleasant 46 year old black female presented to [facility] ER for further evaluation;she reported that she went to her primary care physician office and was noted to have a low BP; when she got home she started to feel weak and unable to get out of the car. EMS brought her to the ER for further evaluation. Medical History: CHF; CAD; Hypertension; NV (august/ ) ; peripheral neuropathy; Diabets; GERD; dyslipidemia Surgical history: cardiac catherization (August stents) ; left eye cataract extraction; hysterectomy; cholecystectomy. Patient reports just feeling generally weak but much more on the left side. Patient was seen in the ED on 10/13/16 for hypotension and weakness but patient left AMA and refused being admitted for further evaluation at that time. She was hospitalized and on the ventilator in [place] at the end of August until early September. The report says she had an ST elevation NV and underwent stenting of the LAD, RCA, PDA, and left circumflex. She had a repeat cath when she was admitted here in September showing patent stents, LV gram showed mildly decreased LV function with EF of 45%. She stated that while she was in [place] she was told she may have had a stroke because had left-sided facial droop, mild dysarthria and left-sided weakness "when I came off of life support." She stated that this has not been worked up. She is also having low blood pressure at home causing dizziness and significant fatigue. Her chronic systolic CHF appeared to be well compensated. Her blood pressure was labile in the emergency room, hemodynamically stable before admission. She was admitted to the hospitalist service. Her blood pressure was monitored closely. Cardiology was consulted. She was continued on her aspirin, Brilinta, and a statin, as well as her insulin regimen/sliding scale before meals at bedtime for diabetes. She was also noted to have sinus tachycardia. She was started on low dose metoprolol without incident. Her blood pressure has remained relatively stable during admission. Neurology was consulted. MRI brain with multiple small lacunar infarctions in the bilateral centrum semiovale and subcortical white matter junction regions including the frontal temporal and parietal lobe region bilaterally. Bilateral multiple areas of abnormal signal in the periventricula subcortical white matter regions. She was diagnosed with Figueroa's Palsy. She was given IVIG. Neck MRI and MRI cervical/thoracic spine without acute process. - Time spent with patient Time with patient DS: Greater than 30 minutes (40) Diagnosis - Discharge Diagnosis (1) Recent myocardial infarction Status: Chronic (2) DM2 (diabetes mellitus, type 2) Status: Chronic (3) History of percutaneous coronary intervention Status: Chronic (4) Hypotension Status: Resolved (5) Left-sided weakness Status: Chronic Specialty Discharge - Follow Up or Referrals Follow up with: Alvin Camarillo MD [Physician] - 1 Month (Follow me in 1 month. Have the office cancel any other follow-up appointments with me.) Discharge Plan - Discharge Data Disposition: Disch To Home/Self Care Condition at Discharge: Stable Discharge Diet: heart healthy Activity: as per physical therapy Weight Bearing at Discharge: weight bear as tolerated Contact your physician if you experience:: fever over 101, Shortness of breath - Discharge Medications New Atorvastatin [Lipitor] 40 mg PO BEDTIME #30 tablet Cetirizine Tab [ZyrTEC Tab] 5 mg PO DAILY #30 tablet Ticagrelor [Brilinta] 90 mg PO BID tablet Aspirin Tab 325 mg PO DAILY tablet Metoprolol Succinate Xl [Toprol Xl] 50 mg PO BID #60 tablet Continue Insulin NPH Hum/Reg Insulin Hm [NovoLIN 70/30] 30 units SUBCUT BID - Follow Up or Referral Follow Up: Alvin Camarillo MD [Physician] - 1 Month (Follow me in 1 month. Have the office cancel any other follow-up appointments with me.) - Forms/Instructions Exam - Constitutional Vitals: Period Temp Pulse Resp BP Sys/Vizcarra Pulse Ox Last 24 Hr 97.1 F-99.0 F 105-119 18-20 82-185/51-150 95-100 General appearance: over weight - Head Head exam: Present: normocephalic, atraumatic - Eye Eye exam: Present: EOMI Pupils: Present: MARITZA - ENT ENT exam: Present: normal exam - Neck Neck exam: Present: normal inspection - Respiratory Respiratory exam: Present: clear to auscultation bilaterally. Absent: wheezes - Cardiovascular Cardiovascular exam: Present: regular rate and rhythm - GI/Abdominal GI/Abdominal exam: Present: normal bowel sounds, soft. Absent: tenderness, rebound - Extremities Exam Extremities exam: Present: normal inspection - Back Exam Back exam: Present: normal inspection - Neurological Exam Neurological exam: Present: alert, oriented X3 - Psychiatric Psychiatric exam: Present: normal affect, normal mood - Skin Skin exam: Present: warm, intact Discharge Results Procedures and tests throughout hospitalization: Pending Orders 10/14/16 15:53 Blood Culture Stat Labs on day of discharge: Labs from last 24 hours 10/18/16 10/17/16 10/17/16 08:03 20:30 16:00 POC Glucose 221 H 197 H 115 H Preliminary micro results at discharge 10/14/16 15:53 Blood Culture - Preliminary Blood No growth at 3 days 10/14/16 15:53 Blood Culture - Preliminary Blood No growth at 3 days DS: Provider Date of admission: 10/14/16 15:35 Primary care physician: . No PCP Attending physician on admission: Wilbert Arce DO Consults: 10/14/16 17:12 Consult to Case Mgmt/Social Srvs [CONS] Routine Reason for Case Mgmt/Social Srvs: Discharge Planning Consult to Occupational Therapy [CONS] Routine Reason for Occupational Therapy: Evaluate and Treat Consult Comment: Stroke Consult to Physical Therapy [CONS] Routine Reason for Physical Therapy: Evaluate and Treat Consult Comment: stroke 10/14/16 17:19 Consult to Physician [CONS] Routine Comment: left sided weakness Consulting Provider: Loi Barrera When should Consulting Provider be notified: Now Person Notified: stuart Date Notified: 10/15/16 Time Notified: 08:59 10/14/16 17:31 Consult to Physician [CONS] Routine Comment: hypotension; known to you Consulting Provider: Alvin Camarillo When should Consulting Provider be notified: In am 10/14/16 23:00 Consult to Dietitian [CONS] Routine Reason for Dietitian: Dietary Consult 10/15/16 16:26 Consult to Case Mgmt/Social Srvs [CONS] Routine Reason for Case Mgmt/Social Srvs: Rehab Discharging clinician: Efra Perez MD
[2016-10-18 12:20] VITALS: BP 111/72
[2016-10-18] MEDS: IMMUNE GLOBULIN 10% 20 GM, IMMUNE GLOBULIN 10% 10 GM, IMMUNE GLOBULIN 10% 5 GM in PREMI... IV SCH (13:19)
--- NOTE | 2016-10-23 15:44 | Physician Query Form ---
CLICK EDIT DOCUMENT TO SELECT QUERY ANSWER --> OK --> SIGN Rashida Lopez RN, CCDS Certified Clinical Qa Auditor W) [phone] (f) [phone] [email or web address] PROVIDERS: Make your selection(s) from the choices in EACH section by typing an "x" and enter comments in the comment section. Please use your independent medical judgment in providing your response. This request does not imply that any particular answer is desired or expected. CLINICAL INDICATORS: (Providers should not edit this section) Patient admitted with left sided weakness, dizziness and significant fatigue with hypotension, facial droop and Figueroa's Palsy, MRI brain revealed "multiple small lacunar infarctions in the bilateral centrum semiovale and subcortical white matter junction regions including the frontal temporal and parietal lobe region bilaterally. Bilateral multiple areas of abnormal signal in the periventricula subcortical white matter regions" Based on the above, could you clarify the appropriate diagnosis, if significant , that supports the above abnormalities and additional evaluation, monitoring, and/or treatment rendered: ( ) Lacunar infarctions likely acute ( ) Lacunar infarctions likely chronic ( ) Other, please specify: ( x) Clinically unable to determine COMMENTS: PLEASE ALSO DOCUMENT RESPONSE IN PROGRESS NOTES AND/OR DISCHARGE SUMMARY Use of terms such as suspected, likely, or probable (associated with a specific diagnosis that is being evaluated, monitored, or treated as if it exists) are acceptable and can be restated in the discharge summary if not ruled out. MTDD
== END 2016-10-18 13:20 | disposition home or self-care (01) | DRG 48 ==
LOC: EDBD → EDUNIT# → N.ED 14:15 → SUATTDRO 15:35 → N.EDINP 15:35 → N.2E 18:03
PROVIDERS: ADMIT Internal Medicine; ATTEND Internal Medicine

== ENCOUNTER 2019-06-28 13:00 | Observation (INO) ==
[2019-06-28] MEDS ORDERED: KETOROLAC 30 MG/1 ML VIAL IM STA (13:58)
[2019-06-28] MEDS ORDERED: CLINDAMYCIN INJ 900 MG in PREMIX 1 EACH IV STA (13:58)
[2019-06-28] MEDS ORDERED: ONDANSETRON 4 MG/2 ML VIAL IV STA (13:58)
[2019-06-28] MEDS ORDERED: SULFAMETHOX/TRIMETHOPRIM 800-160 MG TABLET PO STA (14:06)
[2019-06-28 14:45] LABS: Basophils % 0.2 % (0.0-0.8); Eosinophils % 0.1 % (0.00-10.9); Hematocrit 37.5 VOL% (35.7-47.0); Hemoglobin 12.4 GM/DL (12.0-16.0); Immature Granulocytes % 0.2 %; Immature Granulocytes Absolute 0.02 #; Lymphocytes # 2.2 10*3/uL (1.4-4.0); Lymphocytes % 21.4 % (21.3-54.2); Mean Corpuscular HGB Conc 33.1 GM/DL (32-36); Mean Corpuscular Volume 87.8 FL (87-102); Mean Platelet Volume 11.3 FL (9.6-12.0); Monocytes % 5.5 % (1.7-12.7); Neutrophils % 72.6 % (38.7-73.9); Platelet Count 272 T/CUMM (130-400); Red Blood Count 4.27 MC/CUMM (3.8-5.5); Red Cell Distribution Width 13.1 % (9.3-17.3); White Blood Count 10.1 T/CUMM (4-12)
[2019-06-28 15:08] LABS: Albumin 2.4 G/DL (3.4-5.0); Bilirubin,Total 0.4 MG/DL (0.2-1.0); Calcium 9.2 MG/DL (8.5-10.1); Osmolality,Calculated 297.1 MOS/KG (273-304); Total Protein 7.6 G/DL (6.4-8.3)
[2019-06-28 15:13] LABS: INR 0.9; PT Patient Result 9.9 SECS (9.6-12.2)
[2019-06-28] MEDS ORDERED: INSULIN REGULAR 100 UNIT/ML IV ONE (15:17)
[2019-06-28] MEDS ORDERED: SODIUM CHLORIDE 0.9% 1,000 ML IV STA (15:17)
[2019-06-28 15:25] LABS: CKMB % 2.3 %; Troponin I < 0.015 NG/ML (0.00-0.045)
[2019-06-28] MEDS ORDERED: DEXTROSE 10% 250 ML BAG IV PRN (15:55)
[2019-06-28] MEDS ORDERED: GLUCAGON 1 MG VIAL IM PRN (15:55)
[2019-06-28] MEDS ORDERED: ACETAMINOPHEN 325 MG TABLET PO PRN (15:55)
[2019-06-28] MEDS ORDERED: ONDANSETRON 4 MG/2 ML VIAL IV PRN (15:55)
[2019-06-28] MEDS ORDERED: metOLazone 5 MG TABLET PO PRN (16:01)
[2019-06-28] MEDS ORDERED: GABAPENTIN 300 MG CAPSULE PO PRN (16:01)
[2019-06-28] MEDS ORDERED: hydrALAZINE 20 MG/1 ML VIAL IV PRN (16:04)
[2019-06-28] MEDS: FUROSEMIDE 80 MG TABLET PO SCH (18:16)
[2019-06-28] MEDS: INSULIN REGULAR 100 UNIT/ML SUBCUT SCH ×2 (18:16→20:15)
[2019-06-28] MEDS: METOPROLOL SUCCINATE XL 50 MG TABLET PO SCH (18:16)
[2019-06-28] MEDS: SERTRALINE 50 MG TABLET PO SCH (18:16)
[2019-06-28] MEDS: VANCOMYCIN INJ 1,500 MG in SODIUM CHLORIDE 0.9% 500 ML IV SCH (20:14)
[2019-06-28] MEDS: ATORVASTATIN 40 MG TABLET PO SCH (20:14)
[2019-06-28] MEDS ORDERED: SULFAMETHOX/TRIMETHOPRIM 800-160 MG TABLET PO SCH (21:00)
[2019-06-29 06:57] LABS: Albumin 2.2 G/DL (3.4-5.0); Bilirubin,Total 0.5 MG/DL (0.2-1.0); Calcium 8.8 MG/DL (8.5-10.1); Osmolality,Calculated 282.7 MOS/KG (273-304); Total Protein 6.6 G/DL (6.4-8.3)
[2019-06-29] MEDS: INSULIN REGULAR 100 UNIT/ML SUBCUT SCH ×4 (07:38→21:43)
[2019-06-29] MEDS ORDERED: CLINDAMYCIN INJ 900 MG in PREMIX 1 EACH IV ONE (09:11)
[2019-06-29] MEDS: METOPROLOL SUCCINATE XL 50 MG TABLET PO SCH (10:12)
[2019-06-29] MEDS: FUROSEMIDE 80 MG TABLET PO SCH (10:12)
[2019-06-29] MEDS: LOSARTAN 50 MG TABLET PO SCH (10:12)
[2019-06-29] MEDS: SERTRALINE 50 MG TABLET PO SCH (10:12)
[2019-06-29] MEDS: PANTOPRAZOLE 40 MG TABLET PO SCH (10:12)
[2019-06-29] MEDS ORDERED: LIDOCAINE 1% 20 ML VIAL ONE (12:14)
[2019-06-29] MEDS ORDERED: LACTATED RINGERS 1,000 ML IV SCH (13:00)
[2019-06-29] MEDS ORDERED: KETAMINE 500 MG/10 ML VIAL ONE (13:41)
[2019-06-29] MEDS ORDERED: MIDAZOLAM 2 MG/2 ML VIAL ONE (13:41)
[2019-06-29] MEDS: ATORVASTATIN 40 MG TABLET PO SCH (21:42)
[2019-06-30] MEDS: VANCOMYCIN INJ 1,500 MG in SODIUM CHLORIDE 0.9% 500 ML IV SCH (00:06)
[2019-06-30 05:15] LABS: Basophils % 0.2 % (0.0-0.8); Eosinophils # 0.1 10*3/uL (0.0-0.87); Eosinophils % 0.7 % (0.00-10.9); Hematocrit 32.9 VOL% (35.7-47.0); Immature Granulocytes % 0.5 %; Immature Granulocytes Absolute 0.05 #; Lymphocytes # 3.5 10*3/uL (1.4-4.0); Mean Corpuscular HGB Conc 33.4 GM/DL (32-36); Mean Corpuscular Volume 86.1 FL (87-102); Mean Platelet Volume 11.3 FL (9.6-12.0); Monocytes % 5.9 % (1.7-12.7); Neutrophils % 58.7 % (38.7-73.9); Platelet Count 266 T/CUMM (130-400); Red Blood Count 3.82 MC/CUMM (3.8-5.5); Red Cell Distribution Width 13.1 % (9.3-17.3); White Blood Count 10.2 T/CUMM (4-12)
[2019-06-30 05:39] LABS: Calcium 8.4 MG/DL (8.5-10.1)
[2019-06-30] MEDS: INSULIN REGULAR 100 UNIT/ML SUBCUT SCH ×2 (08:13→11:54)
[2019-06-30] MEDS: PANTOPRAZOLE 40 MG TABLET PO SCH (08:39)
[2019-06-30] MEDS: FUROSEMIDE 80 MG TABLET PO SCH (08:39)
[2019-06-30] MEDS: LOSARTAN 50 MG TABLET PO SCH (08:39)
[2019-06-30] MEDS: METOPROLOL SUCCINATE XL 50 MG TABLET PO SCH (08:40)
[2019-06-30] MEDS: SERTRALINE 50 MG TABLET PO SCH (08:40)
[2019-06-30] MEDS ORDERED: SODIUM HYPOCHLORITE 0.25% IRRIG 473 ML BOTTLE TOP SCH (10:30)
[2019-06-30 11:18] VITALS: BP 153/69
[2019-07-05] MEDS ORDERED: ERGOCALCIFEROL 50,000 UNIT CAPSULE PO SCH (09:00)
== END 2019-06-30 13:25 | disposition home health service (06) ==
LOC: N.EDINP 13:00 → N.ED 13:00 → N.EDINP 17:37 → N.3E 17:43
PROVIDERS: ADMIT Family Medicine; ATTEND Family Medicine

== ENCOUNTER 2019-11-08 12:50 | Inpatient (IN) ==
[2019-11-08 16:03] LABS: Basophils % 0.1 % (0.0-0.8); Eosinophils % 0.2 % (0.00-10.9); Hematocrit 19.8 VOL% (35.7-47.0); Immature Granulocytes % 1.6 %; Immature Granulocytes Absolute 0.28 #; Lymphocytes # 2.4 10*3/uL (1.4-4.0); Lymphocytes % 13.4 % (21.3-54.2); Mean Corpuscular HGB Conc 31.3 GM/DL (32-36); Mean Corpuscular Volume 82.2 FL (87-102); Mean Platelet Volume 10.1 FL (9.6-12.0); Monocytes % 5.5 % (1.7-12.7); NRBC # 0.03 10*3/uL; Neutrophils % 79.2 % (38.7-73.9); Platelet Count 576 T/CUMM (130-400); Red Blood Count 2.41 MC/CUMM (3.8-5.5); Red Cell Distribution Width 16.8 % (9.3-17.3); White Blood Count 17.7 T/CUMM (4-12)
[2019-11-08 16:11] LABS: Hemoglobin 6.2 GM/DL (12.0-16.0)
[2019-11-08] MEDS ORDERED: SODIUM CHLORIDE 0.9% 500 ML IV STA (16:21)
[2019-11-08 16:29] LABS: Albumin 1.9 G/DL (3.4-5.0); Bilirubin,Total 0.4 MG/DL (0.2-1.0); Calcium 8.8 MG/DL (8.5-10.1); Osmolality,Calculated 280.4 MOS/KG (273-304)
[2019-11-08] MEDS ORDERED: LACTATED RINGERS 1,000 ML IV SCH (16:30)
[2019-11-08] MEDS ORDERED: INSULIN LISPRO 100 UNIT/ML SUBCUT STA (16:40)
[2019-11-08] MEDS ORDERED: cefTRIAXone 1,000 MG in SODIUM CHLORIDE 0.9% 100 ML IV STA (17:30)
[2019-11-08] MEDS ORDERED: INSULIN LISPRO 100 UNIT/ML ONE (17:40)
[2019-11-08] MEDS ORDERED: FUROSEMIDE 20 MG/2 ML VIAL IV STA (17:48)
[2019-11-08] MEDS ORDERED: FUROSEMIDE 40 MG/4 ML VIAL ONE (18:13)
[2019-11-08 18:53] LABS: Band Neutrophils 1 % (0-10); Lymphocytes 13 % (20-55); Segmented Neutrophils 81 % (50-85); Total Cells Counted 100
[2019-11-08 18:54] LABS: Hypochromasia Slight; Microcytosis Slight; Platelet Estimate Increased
[2019-11-08] MEDS ORDERED: ZALEPLON 5 MG CAPSULE PO PRN (20:51)
[2019-11-08] MEDS ORDERED: GLUCAGON 1 MG VIAL IM PRN ×2 (20:51)
[2019-11-08] MEDS ORDERED: DEXTROSE 50% 25 GM/50 ML VIAL IV PRN ×2 (20:51)
[2019-11-08] MEDS ORDERED: metOLazone 5 MG TABLET PO PRN (20:55)
[2019-11-08] MEDS ORDERED: NITROGLYCERIN SL 0.4 MG TABLET SL PRN (20:55)
[2019-11-08] MEDS ORDERED: SODIUM CHLORIDE 0.9% 1,000 ML IV PRN (20:59)
[2019-11-08] MEDS ORDERED: CHOLECALCIFEROL 50000 UNIT PO SCH (21:00)
[2019-11-08] MEDS ORDERED: ENOXAPARIN 40 MG/0.4 ML SYRINGE SUBCUT SCH (21:00)
[2019-11-08] MEDS: ATORVASTATIN 40 MG TABLET PO SCH (22:20)
[2019-11-08] MEDS: CLINDAMYCIN INJ 600 MG in PREMIX 1 EACH IV SCH (22:20)
[2019-11-08] MEDS: INSULIN REGULAR 100 UNIT/ML SUBCUT SCH (23:18)
[2019-11-09 01:08] LABS: Basophils % 0.1 % (0.0-0.8); Eosinophils # 0.1 10*3/uL (0.0-0.87); Eosinophils % 0.4 % (0.00-10.9); Hematocrit 19.1 VOL% (35.7-47.0); Immature Granulocytes % 1.5 %; Immature Granulocytes Absolute 0.25 #; Lymphocytes # 2.7 10*3/uL (1.4-4.0); Lymphocytes % 15.7 % (21.3-54.2); Mean Corpuscular HGB Conc 31.4 GM/DL (32-36); Monocytes % 5.9 % (1.7-12.7); NRBC # 0.04 10*3/uL; Neutrophils % 76.4 % (38.7-73.9); Platelet Count 519 T/CUMM (130-400); Red Blood Count 2.33 MC/CUMM (3.8-5.5); Red Cell Distribution Width 16.8 % (9.3-17.3)
[2019-11-09 01:25] LABS: Alanine Aminotransferase 42 U/L (13-56); Albumin 1.7 G/DL (3.4-5.0); Alkaline Phosphatase 569 U/L (45-117); Aspartate Amino Transferase 53 U/L (0-37); Bilirubin,Total < 0.39 MG/DL (0.2-1.0); Blood Urea Nitrogen 21 MG/DL (7-18); Calcium 8.6 MG/DL (8.5-10.1); Estimated Glom Filtration Rate 59 ML/MIN; Glucose 168 MG/DL (74-106); HDL Cholesterol 35 MG/DL (40-60); Risk Ratio 2.91; Total Protein 7.1 G/DL (6.4-8.3); Triglycerides 85 MG/DL (2-150)
[2019-11-09] MEDS: GABAPENTIN 300 MG CAPSULE PO PRN (01:52)
[2019-11-09] MEDS: INSULIN REGULAR 100 UNIT/ML SUBCUT SCH ×3 (06:49→18:27)
[2019-11-09] MEDS: METOPROLOL SUCCINATE XL 50 MG TABLET PO SCH (08:55)
[2019-11-09] MEDS: FOLIC ACID 1 MG TABLET PO SCH (08:55)
[2019-11-09] MEDS: FUROSEMIDE 40 MG/4 ML VIAL IV SCH ×2 (08:55→15:14)
[2019-11-09] MEDS: CLINDAMYCIN INJ 600 MG in PREMIX 1 EACH IV SCH ×2 (08:56→13:46)
[2019-11-09 10:41] LABS: Basophils % 0.1 % (0.0-0.8); Eosinophils # 0.1 10*3/uL (0.0-0.87); Eosinophils % 0.3 % (0.00-10.9); Hematocrit 25.3 VOL% (35.7-47.0); Immature Granulocytes % 0.9 %; Immature Granulocytes Absolute 0.15 #; Lymphocytes # 2.3 10*3/uL (1.4-4.0); Lymphocytes % 14.4 % (21.3-54.2); Mean Corpuscular HGB Conc 31.2 GM/DL (32-36); Mean Corpuscular Volume 83.5 FL (87-102); Mean Platelet Volume 9.5 FL (9.6-12.0); NRBC # 0.04 10*3/uL; Neutrophils % 78.3 % (38.7-73.9); Platelet Count 528 T/CUMM (130-400); Red Cell Distribution Width 16.5 % (9.3-17.3); White Blood Count 15.9 T/CUMM (4-12)
[2019-11-09 10:44] LABS: Hemoglobin 7.9 GM/DL (12.0-16.0); Red Blood Count 3.03 MC/CUMM (3.8-5.5)
[2019-11-09] MEDS: ONDANSETRON 4 MG/2 ML VIAL IV PRN (12:49)
[2019-11-09] MEDS ORDERED: DEXTROSE 50% 25 GM/50 ML VIAL IV PRN (13:39)
[2019-11-09] MEDS ORDERED: GLUCAGON 1 MG VIAL IM PRN (13:39)
[2019-11-09] MEDS: CEFEPIME 1,000 MG in SODIUM CHLORIDE 0.9% 100 ML IV SCH ×2 (15:20→21:20)
[2019-11-09] MEDS ORDERED: VANCOMYCIN INJ 2,000 MG in SODIUM CHLORIDE 0.9% 500 ML IV ONE (17:00)
[2019-11-09] MEDS ORDERED: cefTRIAXone 1,000 MG in SYRINGE 1 EACH IV SCH (18:00)
[2019-11-09] MEDS: ATORVASTATIN 40 MG TABLET PO SCH (21:20)
[2019-11-10] MEDS: INSULIN REGULAR 100 UNIT/ML SUBCUT SCH ×5 (00:40→23:39)
[2019-11-10] MEDS: ONDANSETRON 4 MG/2 ML VIAL IV PRN (00:49)
[2019-11-10 02:23] LABS: Apearance,Urine CLEAR (Clear); Bilirubin,Urine Negative (Negative); Blood, Urine Negative (Negative); Glucose,Urine (UA) 50 mg/dL (Negative); Hyaline Casts,Urine 13 /LPF (0-3); Ketones,Urine Negative (Negative); Mucus,Urine Occasional /LPF (Occasional); Nitrite,Urine Negative (Negative); Protein,Urine >=500 MG/DL; RBC,Urine 7 /HPF (0-4); Squamous Epithelial Cell,Urine Occasional /HPF (0-10); Urine Color Yellow (Yellow); Urine Specific Gravity 1.013 (1.001-1.035); WBC,Urine 2 /HPF (0-6)
[2019-11-10] MEDS: CEFEPIME 1,000 MG in SODIUM CHLORIDE 0.9% 100 ML IV SCH ×4 (03:06→22:26)
[2019-11-10 05:40] LABS: Basophils % 0.2 % (0.0-0.8); Eosinophils % 0.2 % (0.00-10.9); Hematocrit 24.2 VOL% (35.7-47.0); Hemoglobin 7.5 GM/DL (12.0-16.0); Immature Granulocytes % 1.2 %; Immature Granulocytes Absolute 0.22 #; Lymphocytes # 2.2 10*3/uL (1.4-4.0); Lymphocytes % 12.6 % (21.3-54.2); Mean Corpuscular Volume 84.3 FL (87-102); Mean Platelet Volume 9.8 FL (9.6-12.0); Monocytes % 5.7 % (1.7-12.7); NRBC # 0.03 10*3/uL; Neutrophils % 80.1 % (38.7-73.9); Platelet Count 509 T/CUMM (130-400); Red Blood Count 2.87 MC/CUMM (3.8-5.5); Red Cell Distribution Width 16.8 % (9.3-17.3); White Blood Count 17.8 T/CUMM (4-12)
[2019-11-10] MEDS: VANCOMYCIN INJ 1,500 MG in SODIUM CHLORIDE 0.9% 500 ML IV SCH ×2 (05:55→17:21)
[2019-11-10] MEDS ORDERED: DEXMEDETOMIDINE 200 MCG/2 ML VIAL ONE (06:05)
[2019-11-10 06:17] LABS: Calcium 8.3 MG/DL (8.5-10.1); Osmolality,Calculated 281.1 MOS/KG (273-304)
[2019-11-10] MEDS ORDERED: LIDOCAINE 1% 20 ML VIAL ONE (06:38)
[2019-11-10] MEDS ORDERED: BUPIVACAINE MPF 0.25% 30 ML VIAL ONE (06:38)
[2019-11-10] MEDS: FUROSEMIDE 40 MG/4 ML VIAL IV SCH ×2 (08:36→16:05)
[2019-11-10] MEDS: FOLIC ACID 1 MG TABLET PO SCH (08:36)
[2019-11-10] MEDS: GABAPENTIN 300 MG CAPSULE PO PRN (08:37)
[2019-11-10] MEDS: METOPROLOL SUCCINATE XL 50 MG TABLET PO SCH (08:37)
[2019-11-10] MEDS ORDERED: propofoL 200 MG/20 ML VIAL IV ONE (10:16)
[2019-11-10] MEDS ORDERED: MIDAZOLAM 2 MG/2 ML VIAL ONE (10:17)
[2019-11-10] MEDS ORDERED: ACETAMINOPHEN 325 MG TABLET PO PRN (16:47)
[2019-11-10] MEDS: ATORVASTATIN 40 MG TABLET PO SCH (22:26)
[2019-11-11] MEDS: CEFEPIME 1,000 MG in SODIUM CHLORIDE 0.9% 100 ML IV SCH ×4 (04:23→22:21)
[2019-11-11] MEDS: VANCOMYCIN INJ 1,500 MG in SODIUM CHLORIDE 0.9% 500 ML IV SCH (05:30)
[2019-11-11] MEDS: INSULIN REGULAR 100 UNIT/ML SUBCUT SCH ×3 (07:21→17:56)
[2019-11-11] MEDS: FUROSEMIDE 40 MG/4 ML VIAL IV SCH ×2 (08:56→16:27)
[2019-11-11] MEDS: FOLIC ACID 1 MG TABLET PO SCH (08:57)
[2019-11-11] MEDS: METOPROLOL SUCCINATE XL 50 MG TABLET PO SCH (08:57)
[2019-11-11] MEDS: BISACODYL 5 MG TABLET PO SCH (13:37)
[2019-11-11] MEDS: ATORVASTATIN 40 MG TABLET PO SCH (22:23)
[2019-11-12] MEDS: INSULIN REGULAR 100 UNIT/ML SUBCUT SCH ×4 (00:58→17:30)
[2019-11-12] MEDS: CEFEPIME 1,000 MG in SODIUM CHLORIDE 0.9% 100 ML IV SCH ×2 (05:29→10:46)
[2019-11-12 05:57] LABS: Basophils % 0.2 % (0.0-0.8); Eosinophils # 0.2 10*3/uL (0.0-0.87); Eosinophils % 0.8 % (0.00-10.9); Hematocrit 24.3 VOL% (35.7-47.0); Hemoglobin 7.6 GM/DL (12.0-16.0); Immature Granulocytes % 1.2 %; Immature Granulocytes Absolute 0.24 #; Lymphocytes # 2.7 10*3/uL (1.4-4.0); Mean Corpuscular HGB Conc 31.3 GM/DL (32-36); Mean Corpuscular Volume 84.4 FL (87-102); Monocytes % 6.9 % (1.7-12.7); NRBC # 0.02 10*3/uL; Neutrophils % 76.9 % (38.7-73.9); Platelet Count 511 T/CUMM (130-400); Red Blood Count 2.88 MC/CUMM (3.8-5.5); Red Cell Distribution Width 17.4 % (9.3-17.3); White Blood Count 19.4 T/CUMM (4-12)
[2019-11-12] MEDS: FUROSEMIDE 40 MG/4 ML VIAL IV SCH (08:28)
[2019-11-12] MEDS: METOPROLOL SUCCINATE XL 50 MG TABLET PO SCH (08:31)
[2019-11-12] MEDS ORDERED: LACTATED RINGERS 1,000 ML IV SCH (09:00)
[2019-11-12] MEDS ORDERED: propofoL 200 MG/20 ML VIAL IV ONE (09:23)
[2019-11-12] MEDS ORDERED: ONDANSETRON 4 MG/2 ML VIAL ONE (09:24)
[2019-11-12] MEDS ORDERED: PHENYLEPHRINE 1 MG/10 ML SYRINGE IV ONE (09:24)
[2019-11-12] MEDS ORDERED: LIDOCAINE 2% 5 ML VIAL ONE (09:24)
[2019-11-12] MEDS ORDERED: fentaNYL 100 MCG/2 ML VIAL ONE (09:24)
[2019-11-12] MEDS ORDERED: SEVOFLURANE 1 UNIT/15 MINUTE INH ONE (09:24)
[2019-11-12] MEDS ORDERED: MIDAZOLAM 2 MG/2 ML VIAL ONE (09:24)
[2019-11-12] MEDS: FOLIC ACID 1 MG TABLET PO SCH (10:45)
[2019-11-12] MEDS: BISACODYL 5 MG TABLET PO SCH (10:45)
[2019-11-12] MEDS: FUROSEMIDE 20 MG TABLET PO SCH (15:33)
[2019-11-12] MEDS: ceFAZolin 1,000 MG in SYRINGE 1 EACH IV SCH (16:46)
[2019-11-12] MEDS: ATORVASTATIN 40 MG TABLET PO SCH (21:00)
[2019-11-13] MEDS: INSULIN REGULAR 100 UNIT/ML SUBCUT SCH ×4 (00:36→18:39)
[2019-11-13] MEDS: ceFAZolin 1,000 MG in SYRINGE 1 EACH IV SCH ×3 (00:36→16:21)
[2019-11-13] MEDS: hydrALAZINE 20 MG/1 ML VIAL IV PRN ×2 (00:51→13:11)
[2019-11-13 06:39] LABS: Calcium 8.9 MG/DL (8.5-10.1); Osmolality,Calculated 280.8 MOS/KG (273-304)
[2019-11-13] MEDS: BISACODYL 5 MG TABLET PO SCH (08:23)
[2019-11-13] MEDS: FUROSEMIDE 20 MG TABLET PO SCH ×2 (08:23→16:21)
[2019-11-13] MEDS: METOPROLOL SUCCINATE XL 50 MG TABLET PO SCH (08:23)
[2019-11-13] MEDS: FOLIC ACID 1 MG TABLET PO SCH (08:23)
[2019-11-13] MEDS ORDERED: SODIUM HYPOCHLORITE 0.25% IRRIG 473 ML BOTTLE TOP PRN (09:52)
[2019-11-13] MEDS: ATORVASTATIN 40 MG TABLET PO SCH (20:11)
[2019-11-14] MEDS: INSULIN REGULAR 100 UNIT/ML SUBCUT SCH ×4 (00:02→19:28)
[2019-11-14] MEDS: ceFAZolin 1,000 MG in SYRINGE 1 EACH IV SCH ×3 (00:03→16:09)
[2019-11-14] MEDS: hydrALAZINE 20 MG/1 ML VIAL IV PRN (04:32)
[2019-11-14] MEDS ORDERED: SEVOFLURANE 1 UNIT/15 MINUTE INH ONE (09:08)
[2019-11-14] MEDS ORDERED: ONDANSETRON 4 MG/2 ML VIAL ONE (09:08)
[2019-11-14] MEDS ORDERED: CALCIUM CHLORIDE 1,000 MG/10 ML VIAL IV ONE (09:08)
[2019-11-14] MEDS ORDERED: propofoL 200 MG/20 ML VIAL IV ONE (09:08)
[2019-11-14] MEDS ORDERED: PHENYLEPHRINE 1 MG/10 ML SYRINGE IV ONE (09:08)
[2019-11-14] MEDS ORDERED: fentaNYL 100 MCG/2 ML VIAL ONE (09:08)
[2019-11-14] MEDS ORDERED: LIDOCAINE 2% 5 ML VIAL ONE (09:08)
[2019-11-14] MEDS ORDERED: KETOROLAC 30 MG/1 ML VIAL ONE (09:08)
[2019-11-14] MEDS ORDERED: ONDANSETRON 4 MG/2 ML VIAL IV PRN (09:20)
[2019-11-14] MEDS: HYDROmorphone 2 MG/1 ML VIAL IV PRN ×4 (09:21→09:36)
[2019-11-14] MEDS ORDERED: ACETAMINOPHEN 1,000 MG/100 ML VIAL IV ONE (09:48)
[2019-11-14] MEDS ORDERED: diphenhydrAMINE 50 MG/1 ML VIAL ONE (09:48)
[2019-11-14] MEDS ORDERED: ACETAMINOPHEN INJ 1,000 MG in PREMIX 1 EACH IV ONE (09:49)
[2019-11-14] MEDS ORDERED: diphenhydrAMINE 50 MG/1 ML VIAL IV ONE (09:49)
[2019-11-14] MEDS: METOPROLOL SUCCINATE XL 50 MG TABLET PO SCH (11:48)
[2019-11-14] MEDS: FOLIC ACID 1 MG TABLET PO SCH (11:48)
[2019-11-14] MEDS: FUROSEMIDE 20 MG TABLET PO SCH ×2 (11:48→16:09)
[2019-11-14] MEDS: BISACODYL 5 MG TABLET PO SCH (11:49)
[2019-11-14] MEDS: ATORVASTATIN 40 MG TABLET PO SCH (20:56)
[2019-11-15] MEDS: INSULIN REGULAR 100 UNIT/ML SUBCUT SCH ×2 (00:40→06:29)
[2019-11-15] MEDS: ceFAZolin 1,000 MG in SYRINGE 1 EACH IV SCH ×2 (00:41→09:30)
[2019-11-15] MEDS: hydrALAZINE 20 MG/1 ML VIAL IV PRN (04:43)
[2019-11-15 06:21] LABS: Basophils % 0.2 % (0.0-0.8); Eosinophils # 0.1 10*3/uL (0.0-0.87); Eosinophils % 1.1 % (0.00-10.9); Hematocrit 24.4 VOL% (35.7-47.0); Hemoglobin 7.3 GM/DL (12.0-16.0); Immature Granulocytes % 1.4 %; Immature Granulocytes Absolute 0.18 #; Lymphocytes # 2.6 10*3/uL (1.4-4.0); Lymphocytes % 19.5 % (21.3-54.2); Mean Corpuscular HGB Conc 29.9 GM/DL (32-36); Mean Corpuscular Volume 85.6 FL (87-102); Mean Platelet Volume 9.7 FL (9.6-12.0); Monocytes % 6.8 % (1.7-12.7); Platelet Count 478 T/CUMM (130-400); Red Blood Count 2.85 MC/CUMM (3.8-5.5); Red Cell Distribution Width 17.9 % (9.3-17.3); White Blood Count 13.2 T/CUMM (4-12)
[2019-11-15 06:35] LABS: Calcium 8.8 MG/DL (8.5-10.1); Osmolality,Calculated 287.3 MOS/KG (273-304)
[2019-11-15 08:13] VITALS: BP 141/59
[2019-11-15] MEDS: FOLIC ACID 1 MG TABLET PO SCH (09:26)
[2019-11-15] MEDS: FUROSEMIDE 20 MG TABLET PO SCH (09:26)
[2019-11-15] MEDS: GABAPENTIN 300 MG CAPSULE PO PRN (09:26)
[2019-11-15] MEDS: BISACODYL 5 MG TABLET PO SCH (09:26)
[2019-11-15] MEDS: METOPROLOL SUCCINATE XL 50 MG TABLET PO SCH (09:26)
== END 2019-11-15 11:57 | disposition home health service (06) | DRG 616 ==
LOC: N.ED 12:50 → SUATTDRO 20:50 → N.EDINP 20:50 → N.3E 21:36
PROVIDERS: ADMIT Internal Medicine Geriatric Medicine; ATTEND Internal Medicine

== ENCOUNTER 2019-11-23 12:22 | Observation (INO) ==
[2019-11-23 14:53] LABS: Basophils % 0.2 % (0.0-0.8); Eosinophils % 0.3 % (0.00-10.9); Hematocrit 19.6 VOL% (35.7-47.0); Immature Granulocytes % 0.7 %; Immature Granulocytes Absolute 0.11 #; Lymphocytes # 2.2 10*3/uL (1.4-4.0); Lymphocytes % 14.5 % (21.3-54.2); Mean Corpuscular HGB Conc 30.1 GM/DL (32-36); Mean Corpuscular Volume 86.3 FL (87-102); Mean Platelet Volume 9.8 FL (9.6-12.0); Monocytes % 4.3 % (1.7-12.7); Platelet Count 476 T/CUMM (130-400); Red Blood Count 2.27 MC/CUMM (3.8-5.5); Red Cell Distribution Width 18.4 % (9.3-17.3)
[2019-11-23 14:58] LABS: Hemoglobin 5.9 GM/DL (12.0-16.0)
[2019-11-23 15:11] LABS: Albumin 1.6 G/DL (3.4-5.0); Bilirubin,Total 0.6 MG/DL (0.2-1.0); Calcium 8.3 MG/DL (8.5-10.1); Osmolality,Calculated 283.3 MOS/KG (273-304); Total Protein 6.4 G/DL (6.4-8.3)
[2019-11-23 15:31] LABS: INR 1.1; PT Patient Result 11.5 SECS (9.8-11.9); Partial Thromboplastin Time 25.6 SECS (23.9-33.8)
[2019-11-23] MEDS ORDERED: SODIUM CHLORIDE 0.9% 1,000 ML IV PRN ×3 (15:45→19:24)
[2019-11-23] MEDS ORDERED: GLUCAGON 1 MG VIAL IM PRN (16:25)
[2019-11-23] MEDS ORDERED: DEXTROSE 50% 25 GM/50 ML VIAL IV PRN (16:25)
[2019-11-23] MEDS ORDERED: MORPHINE 4 MG/1 ML VIAL IV PRN (16:25)
[2019-11-23] MEDS ORDERED: PROMETHAZINE 25 MG/1 ML VIAL IM PRN (16:25)
[2019-11-23] MEDS ORDERED: ONDANSETRON 4 MG/2 ML VIAL IV PRN (16:25)
[2019-11-23] MEDS ORDERED: ACETAMINOPHEN 325 MG TABLET PO PRN (16:25)
[2019-11-23] MEDS ORDERED: NITROGLYCERIN SL 0.4 MG TABLET SL PRN (16:27)
[2019-11-23] MEDS ORDERED: GABAPENTIN 300 MG CAPSULE PO PRN (16:27)
[2019-11-23 16:33] LABS: % Iron Saturation 13.7 % (18-50); Ferritin 103.6 ng/ml (8-252)
[2019-11-23 17:07] LABS: Folate 6.8 NG/ML (5.4-24.0)
[2019-11-23] MEDS: INSULIN REGULAR 100 UNIT/ML SUBCUT SCH ×2 (18:21→21:04)
[2019-11-23] MEDS: PANTOPRAZOLE 40 MG TABLET PO SCH (18:22)
[2019-11-23] MEDS ORDERED: glipiZIDE 10 MG TABLET PO SCH (21:00)
[2019-11-23] MEDS ORDERED: ATORVASTATIN 40 MG TABLET PO SCH (21:00)
[2019-11-23] MEDS ORDERED: METOPROLOL SUCCINATE XL 50 MG TABLET PO SCH (21:00)
[2019-11-23] MEDS: glipiZIDE 10 MG TABLET PO SCH (21:03)
[2019-11-23] MEDS: INSULIN ASPART PROTAMINE/ASPART 70/30 100 UNIT/ML SUBCUT SCH (21:03)
[2019-11-23] MEDS: METOPROLOL SUCCINATE XL 50 MG TABLET PO SCH (21:03)
[2019-11-24 05:34] LABS: Hematocrit 19.8 VOL% (35.7-47.0)
[2019-11-24 05:36] LABS: Hemoglobin 6.2 GM/DL (12.0-16.0)
[2019-11-24] MEDS ORDERED: SODIUM CHLORIDE 0.9% 1,000 ML IV PRN ×2 (06:07→07:26)
[2019-11-24] MEDS ORDERED: LOSARTAN 50 MG TABLET PO SCH ×2 (09:00)
[2019-11-24] MEDS ORDERED: CLOPIDOGREL 75 MG TABLET PO SCH (09:00)
[2019-11-24] MEDS ORDERED: NON-FORMULARY MEDICATION (Empagliflozin [Jardiance] 10 MG) PO SCH ×2 (09:00)
[2019-11-24] MEDS ORDERED: IRON SUCROSE 200 MG in SODIUM CHLORIDE 0.9% 100 ML IV SCH (09:00)
[2019-11-24] MEDS ORDERED: ASPIRIN 325 MG TABLET PO SCH (09:00)
[2019-11-24] MEDS ORDERED: FOLIC ACID 1 MG TABLET PO SCH ×2 (09:00)
[2019-11-24 09:16] LABS: Hemoglobin A1 (Alkaline) 97.1 % (96.5-98.5); Hemoglobin A2 (Alkaline) 2.9 % (1.5-3.5)
[2019-11-24] MEDS: INSULIN ASPART PROTAMINE/ASPART 70/30 100 UNIT/ML SUBCUT SCH ×2 (10:51→18:20)
[2019-11-24] MEDS: METOPROLOL SUCCINATE XL 50 MG TABLET PO SCH (11:45)
[2019-11-24] MEDS: FUROSEMIDE 20 MG TABLET PO SCH ×2 (11:45→18:21)
[2019-11-24] MEDS: INSULIN REGULAR 100 UNIT/ML SUBCUT SCH ×3 (11:45→18:21)
[2019-11-24] MEDS: glipiZIDE 10 MG TABLET PO SCH (11:46)
[2019-11-24] MEDS: PANTOPRAZOLE 40 MG TABLET PO SCH (11:46)
[2019-11-24 18:25] VITALS: BP 133/80
[2019-11-24 18:29] LABS: Hematocrit 24.8 VOL% (35.7-47.0)
[2019-11-24 18:30] LABS: Hemoglobin 7.9 GM/DL (12.0-16.0)
[2019-11-24 18:56] LABS: Total Protein 6.5 G/DL (6.4-8.3)
[2019-11-25 06:42] LABS: Immunoglobulin A (Chem) 299 MG/DL (70-400); Immunoglobulin G (Chem) 1390 MG/DL (700-1600); Immunoglobulin M (Chem) 63 MG/DL (40-230); Total Protein (Chem) 6.5 G/DL (6.4-8.3)
[2019-11-25 09:21] LABS: Albumin (SPE) 2.7 G/DL (3.2-5.3); Albumin (SPE) Rel % 41.7 %; Alpha 1 (SPE) 0.4 G/DL (0.1-0.4); Alpha 1 (SPE) Rel % 5.8 %; Alpha 2 (SPE) Rel % 15.3 %; Beta (SPE) 0.9 G/DL (0.5-1.1); Beta (SPE) Rel % 14.5 %; Gamma (SPE) 1.5 G/DL (0.7-1.7); Gamma (SPE) Rel % 22.7 %
[2019-11-29] MEDS ORDERED: ERGOCALCIFEROL 50,000 UNIT CAPSULE PO SCH (09:00)
[2019-11-29] MEDS ORDERED: CHOLECALCIFEROL 50000 UNIT PO SCH (16:27)
== END 2019-11-24 20:10 | disposition home or self-care (01) ==
LOC: N.ED 12:22 → N.TELEN 12:22 → N.EDINP 12:22 → N.ED 17:40
PROVIDERS: ADMIT Internal Medicine; ATTEND Internal Medicine

== ENCOUNTER 2019-11-25 13:58 | Observation (INO) ==
[2019-11-25 15:26] LABS: Calcium 7.9 MG/DL (8.5-10.1); Osmolality,Calculated 288.4 MOS/KG (273-304)
[2019-11-25 15:43] LABS: Hematocrit 20.8 VOL% (35.7-47.0)
[2019-11-25 15:56] LABS: Hemoglobin 6.4 GM/DL (12.0-16.0)
[2019-11-25] MEDS ORDERED: GLUCAGON 1 MG VIAL IM PRN (16:12)
[2019-11-25] MEDS ORDERED: DEXTROSE 50% 25 GM/50 ML VIAL IV PRN (16:12)
[2019-11-25] MEDS ORDERED: SODIUM CHLORIDE 0.9% 1,000 ML IV PRN (16:12)
[2019-11-25] MEDS ORDERED: diphenhydrAMINE 50 MG/1 ML VIAL IV PRN (16:12)
[2019-11-25] MEDS ORDERED: ACETAMINOPHEN 325 MG TABLET PO PRN (16:12)
[2019-11-25] MEDS ORDERED: ONDANSETRON 4 MG/2 ML VIAL IV PRN (16:12)
[2019-11-25] MEDS: INSULIN LISPRO 100 UNIT/ML SUBCUT SCH ×2 (18:05→20:31)
[2019-11-25 18:20] LABS: Basophils # 0.1 10*3/uL (0.0-0.2); Basophils % 0.3 % (0.0-0.8); Eosinophils # 0.1 10*3/uL (0.0-0.87); Eosinophils % 0.8 % (0.00-10.9); Hematocrit 19.7 VOL% (35.7-47.0); Immature Granulocytes % 1.8 %; Immature Granulocytes Absolute 0.33 #; Lymphocytes # 4.2 10*3/uL (1.4-4.0); Lymphocytes % 22.8 % (21.3-54.2); Mean Corpuscular HGB Conc 31.5 GM/DL (32-36); Mean Corpuscular Volume 89.1 FL (87-102); Mean Platelet Volume 9.8 FL (9.6-12.0); Monocytes % 5.8 % (1.7-12.7); NRBC # 0.03 10*3/uL; Neutrophils % 68.5 % (38.7-73.9); Platelet Count 396 T/CUMM (130-400); Red Blood Count 2.21 MC/CUMM (3.8-5.5); Red Cell Distribution Width 17.2 % (9.3-17.3); White Blood Count 18.5 T/CUMM (4-12)
[2019-11-25 18:22] LABS: Hemoglobin 6.2 GM/DL (12.0-16.0)
[2019-11-25] MEDS: SODIUM CHLORIDE 0.45% 1,000 ML IV SCH (20:08)
[2019-11-26] MEDS: SODIUM CHLORIDE 0.45% 1,000 ML IV SCH ×4 (03:44→23:30)
[2019-11-26 06:25] LABS: Basophils # 0.1 10*3/uL (0.0-0.2); Basophils % 0.3 % (0.0-0.8); Eosinophils # 0.2 10*3/uL (0.0-0.87); Hematocrit 20.6 VOL% (35.7-47.0); Hemoglobin 6.6 GM/DL (12.0-16.0); Immature Granulocytes % 0.9 %; Immature Granulocytes Absolute 0.15 #; Lymphocytes # 4.1 10*3/uL (1.4-4.0); Lymphocytes % 25.3 % (21.3-54.2); Mean Corpuscular Volume 88.8 FL (87-102); Mean Platelet Volume 10.2 FL (9.6-12.0); Monocytes % 6.2 % (1.7-12.7); NRBC # 0.02 10*3/uL; Neutrophils % 66.3 % (38.7-73.9); Platelet Count 294 T/CUMM (130-400); Red Blood Count 2.32 MC/CUMM (3.8-5.5); Red Cell Distribution Width 16.3 % (9.3-17.3); White Blood Count 16.2 T/CUMM (4-12)
[2019-11-26 06:34] LABS: Calcium 7.9 MG/DL (8.5-10.1); Osmolality,Calculated 286.1 MOS/KG (273-304)
[2019-11-26 06:59] LABS: Hypochromasia 1+; Lymphocytes 19 % (20-55); Metamyelocytes 1 %; Segmented Neutrophils 74 % (50-85); Total Cells Counted 100
[2019-11-26 07:00] LABS: Microcytosis 1+; Platelet Estimate Normal
[2019-11-26] MEDS: PANTOPRAZOLE 40 MG TABLET PO SCH (08:22)
[2019-11-26] MEDS: INSULIN LISPRO 100 UNIT/ML SUBCUT SCH ×4 (08:23→20:22)
[2019-11-26] MEDS ORDERED: metOLazone 5 MG TABLET PO PRN (13:19)
[2019-11-26] MEDS ORDERED: NITROGLYCERIN SL 0.4 MG TABLET SL PRN (13:19)
[2019-11-26 14:06] LABS: Hemoglobin 8.1 GM/DL (12.0-16.0)
[2019-11-26] MEDS: FERROUS SULFATE 325 MG TABLET PO SCH ×2 (16:26→20:22)
[2019-11-26] MEDS: FUROSEMIDE 20 MG TABLET PO SCH (16:27)
[2019-11-26] MEDS: INSULIN ASPART PROTAMINE/ASPART 70/30 100 UNIT/ML SUBCUT SCH (16:27)
[2019-11-26] MEDS: glipiZIDE 10 MG TABLET PO SCH (20:22)
[2019-11-26] MEDS: METOPROLOL SUCCINATE XL 50 MG TABLET PO SCH (20:22)
[2019-11-26] MEDS ORDERED: ATORVASTATIN 40 MG TABLET PO SCH (21:00)
[2019-11-26] MEDS: GABAPENTIN 300 MG CAPSULE PO PRN (23:08)
[2019-11-27 06:00] LABS: Basophils # 0.1 10*3/uL (0.0-0.2); Basophils % 0.4 % (0.0-0.8); Eosinophils # 0.1 10*3/uL (0.0-0.87); Eosinophils % 0.5 % (0.00-10.9); Hematocrit 23.7 VOL% (35.7-47.0); Hemoglobin 7.3 GM/DL (12.0-16.0); Immature Granulocytes % 3.2 %; Immature Granulocytes Absolute 0.49 #; Lymphocytes # 3.1 10*3/uL (1.4-4.0); Lymphocytes % 20.1 % (21.3-54.2); Mean Corpuscular HGB Conc 30.8 GM/DL (32-36); Mean Corpuscular Volume 90.8 FL (87-102); Monocytes % 7.6 % (1.7-12.7); NRBC # 0.02 10*3/uL; Neutrophils % 68.2 % (38.7-73.9); Platelet Count 298 T/CUMM (130-400); Red Blood Count 2.61 MC/CUMM (3.8-5.5); Red Cell Distribution Width 16.2 % (9.3-17.3); White Blood Count 15.5 T/CUMM (4-12)
[2019-11-27] MEDS: glipiZIDE 10 MG TABLET PO SCH (08:50)
[2019-11-27] MEDS: FUROSEMIDE 20 MG TABLET PO SCH (08:51)
[2019-11-27] MEDS: FERROUS SULFATE 325 MG TABLET PO SCH (08:51)
[2019-11-27] MEDS: PANTOPRAZOLE 40 MG TABLET PO SCH (08:51)
[2019-11-27] MEDS: GABAPENTIN 300 MG CAPSULE PO PRN (08:51)
[2019-11-27] MEDS: METOPROLOL SUCCINATE XL 50 MG TABLET PO SCH (08:51)
[2019-11-27] MEDS: SODIUM CHLORIDE 0.45% 1,000 ML IV SCH (08:52)
[2019-11-27] MEDS: INSULIN ASPART PROTAMINE/ASPART 70/30 100 UNIT/ML SUBCUT SCH (08:52)
[2019-11-27] MEDS: INSULIN LISPRO 100 UNIT/ML SUBCUT SCH ×2 (08:55→14:47)
[2019-11-27] MEDS ORDERED: FOLIC ACID 1 MG TABLET PO SCH (09:00)
[2019-11-27] MEDS ORDERED: ASPIRIN EC 81 MG TABLET PO SCH (09:00)
[2019-11-27] MEDS ORDERED: LOSARTAN 50 MG TABLET PO SCH (09:00)
[2019-11-27] MEDS ORDERED: NON-FORMULARY MEDICATION (Empagliflozin [Jardiance] 10 MG) PO SCH (09:00)
[2019-11-27] MEDS ORDERED: CYANOCOBALAMIN 5000 MCG SL SCH (09:00)
[2019-11-27 17:27] VITALS: BP 136/72
[2019-11-29] MEDS ORDERED: ERGOCALCIFEROL 50,000 UNIT CAPSULE PO SCH (09:00)
== END 2019-11-27 15:35 | disposition home health service (06) ==
LOC: EDUNIT# → EDBD → N.EDINP 13:58 → N.ED 13:58 → N.3E 17:53
PROVIDERS: ADMIT Surgery; ATTEND Surgery

== ENCOUNTER 2019-12-14 14:40 | Inpatient (IN) ==
[2019-12-14] MEDS ORDERED: CLINDAMYCIN INJ 600 MG in PREMIX 1 EACH IV STA (15:36)
[2019-12-14] MEDS ORDERED: GLUCAGON 1 MG VIAL IM PRN (15:47)
[2019-12-14] MEDS ORDERED: ACETAMINOPHEN 325 MG TABLET PO PRN (15:47)
[2019-12-14] MEDS ORDERED: BISACODYL 5 MG TABLET PO PRN (15:47)
[2019-12-14] MEDS ORDERED: DEXTROSE 50% 25 GM/50 ML VIAL IV PRN (15:47)
[2019-12-14] MEDS ORDERED: NITROGLYCERIN SL 0.4 MG TABLET SL PRN (15:49)
[2019-12-14] MEDS ORDERED: metOLazone 5 MG TABLET PO PRN (15:49)
[2019-12-14 16:26] LABS: Basophils # 0.1 10*3/uL (0.0-0.2); Basophils % 0.2 % (0.0-0.8); Eosinophils % 0.1 % (0.00-10.9); Hematocrit 20.3 VOL% (35.7-47.0); Immature Granulocytes % 2.2 %; Immature Granulocytes Absolute 0.55 #; Lymphocytes # 2.3 10*3/uL (1.4-4.0); Lymphocytes % 9.4 % (21.3-54.2); Mean Corpuscular HGB Conc 31.5 GM/DL (32-36); Mean Corpuscular Volume 85.3 FL (87-102); Monocytes % 4.8 % (1.7-12.7); NRBC # 0.03 10*3/uL; Neutrophils % 83.3 % (38.7-73.9); Platelet Count 683 T/CUMM (130-400); Red Blood Count 2.38 MC/CUMM (3.8-5.5); Red Cell Distribution Width 16.7 % (9.3-17.3); White Blood Count 24.6 T/CUMM (4-12)
[2019-12-14 16:27] LABS: Hemoglobin 6.4 GM/DL (12.0-16.0)
[2019-12-14 16:47] LABS: Band Neutrophils 4 % (0-10); Lymphocytes 11 % (20-55); Nucleated Red Blood Cells 15 (0-5); Segmented Neutrophils 80 % (50-85); Total Cells Counted 100
[2019-12-14 16:52] LABS: Alanine Aminotransferase 23 U/L (13-56); Albumin 1.6 G/DL (3.4-5.0); Alkaline Phosphatase 602 U/L (45-117); Aspartate Amino Transferase 33 U/L (0-37); Blood Urea Nitrogen 45 MG/DL (7-18); Estimated Glom Filtration Rate 24 ML/MIN; Glucose 481 MG/DL (74-106); Osmolality,Calculated 296.5 MOS/KG (273-304); Total Protein 8.2 G/DL (6.4-8.3)
[2019-12-14] MEDS ORDERED: SODIUM CHLORIDE 0.9% 1,000 ML IV PRN (16:55)
[2019-12-14] MEDS: LACTATED RINGERS 1,000 ML IV SCH (17:04)
[2019-12-14] MEDS ORDERED: SODIUM CHLORIDE 0.9% 3,000 ML IV ONE (17:23)
[2019-12-14] MEDS ORDERED: SODIUM CHLORIDE 0.9% 1,000 ML IV STA (17:26)
[2019-12-14] MEDS: INSULIN LISPRO 100 UNIT/ML SUBCUT SCH (17:39)
[2019-12-14] MEDS: glipiZIDE 10 MG TABLET PO SCH (21:19)
[2019-12-14] MEDS: METOPROLOL SUCCINATE XL 50 MG TABLET PO SCH (21:20)
[2019-12-14] MEDS: FUROSEMIDE 20 MG TABLET PO SCH (21:20)
[2019-12-14] MEDS: ATORVASTATIN 40 MG TABLET PO SCH (21:20)
[2019-12-14] MEDS: FERROUS SULFATE 325 MG TABLET PO SCH (21:20)
[2019-12-14] MEDS: VANCOMYCIN INJ 1,500 MG in SODIUM CHLORIDE 0.9% 500 ML IV SCH (21:21)
[2019-12-15] MEDS: CLINDAMYCIN INJ 600 MG in PREMIX 1 EACH IV SCH ×2 (01:10→08:47)
[2019-12-15] MEDS: ONDANSETRON 4 MG/2 ML VIAL IV PRN (02:03)
[2019-12-15] MEDS: LOSARTAN 50 MG TABLET PO SCH (08:45)
[2019-12-15] MEDS: CYANOCOBALAMIN 500 MCG TABLET PO SCH (08:45)
[2019-12-15] MEDS: METOPROLOL SUCCINATE XL 50 MG TABLET PO SCH ×2 (08:45→21:20)
[2019-12-15] MEDS: FERROUS SULFATE 325 MG TABLET PO SCH ×3 (08:45→21:21)
[2019-12-15] MEDS: FUROSEMIDE 20 MG TABLET PO SCH ×2 (08:45→21:21)
[2019-12-15] MEDS: PANTOPRAZOLE 40 MG TABLET PO SCH (08:45)
[2019-12-15] MEDS: FOLIC ACID 1 MG TABLET PO SCH (08:45)
[2019-12-15] MEDS: INSULIN LISPRO 100 UNIT/ML SUBCUT SCH ×3 (08:46→17:00)
[2019-12-15] MEDS: glipiZIDE 10 MG TABLET PO SCH ×2 (08:55→21:21)
[2019-12-15] MEDS: ASPIRIN EC 81 MG TABLET PO SCH (08:55)
[2019-12-15] MEDS: LACTATED RINGERS 1,000 ML IV SCH ×3 (09:00→22:24)
[2019-12-15 09:59] LABS: Basophils # 0.1 10*3/uL (0.0-0.2); Basophils % 0.2 % (0.0-0.8); Eosinophils % 0.1 % (0.00-10.9); Hematocrit 25.3 VOL% (35.7-47.0); Immature Granulocytes % 2.4 %; Immature Granulocytes Absolute 0.65 #; Lymphocytes # 2.6 10*3/uL (1.4-4.0); Lymphocytes % 9.6 % (21.3-54.2); Mean Corpuscular HGB Conc 32.8 GM/DL (32-36); Mean Corpuscular Volume 85.8 FL (87-102); Mean Platelet Volume 9.5 FL (9.6-12.0); Monocytes % 6.2 % (1.7-12.7); NRBC # 0.08 10*3/uL; Neutrophils % 81.5 % (38.7-73.9); Platelet Count 569 T/CUMM (130-400); White Blood Count 27.2 T/CUMM (4-12)
[2019-12-15 10:01] LABS: Hemoglobin 8.3 GM/DL (12.0-16.0); Red Blood Count 2.95 MC/CUMM (3.8-5.5)
[2019-12-15 10:23] LABS: Band Neutrophils 1 % (0-10); Hypochromasia 2+; Lymphocytes 11 % (20-55); Microcytosis 1+; Platelet Estimate Adequate; Segmented Neutrophils 83 % (50-85); Total Cells Counted 100
[2019-12-15 10:36] LABS: Calcium 8.7 MG/DL (8.5-10.1)
[2019-12-15] MEDS: MEROPENEM 2,000 MG in SODIUM CHLORIDE 0.9% 100 ML IV SCH (11:05)
[2019-12-15 15:07] LABS: Apearance,Urine Slightly Hazy (Clear); Bacteria,Urine Occasional /HPF (Few); Bilirubin,Urine Negative (Negative); Blood, Urine Negative (Negative); Glucose,Urine (UA) 50 mg/dL (Negative); Ketones,Urine Negative (Negative); Mucus,Urine Occasional /LPF (Occasional); Nitrite,Urine Negative (Negative); Protein,Urine >=500 MG/DL; RBC,Urine 4 /HPF (0-4); Squamous Epithelial Cell,Urine Occasional /HPF (0-10); Urine Color Yellow (Yellow); Urine Specific Gravity 1.012 (1.001-1.035); WBC,Urine 4 /HPF (0-6)
[2019-12-15] MEDS ORDERED: LIDOCAINE 1% 20 ML VIAL ONE (16:12)
[2019-12-15] MEDS ORDERED: propofoL 200 MG/20 ML VIAL IV ONE (17:22)
[2019-12-15] MEDS ORDERED: LIDOCAINE 2% 5 ML VIAL ONE (17:22)
[2019-12-15] MEDS ORDERED: PHENYLEPHRINE 1 MG/10 ML SYRINGE IV ONE (17:22)
[2019-12-15] MEDS ORDERED: SEVOFLURANE 1 UNIT/15 MINUTE INH ONE (17:22)
[2019-12-15] MEDS ORDERED: LACTATED RINGERS 1,000 ML IV ONE (17:22)
[2019-12-15] MEDS ORDERED: ONDANSETRON 4 MG/2 ML VIAL ONE (17:22)
[2019-12-15] MEDS ORDERED: MIDAZOLAM 2 MG/2 ML VIAL ONE (17:23)
[2019-12-15] MEDS ORDERED: fentaNYL 100 MCG/2 ML VIAL ONE (17:23)
[2019-12-15] MEDS: HYDROmorphone 2 MG/1 ML VIAL IV PRN (18:34)
[2019-12-15] MEDS: GABAPENTIN 300 MG CAPSULE PO PRN (21:21)
[2019-12-15] MEDS: ATORVASTATIN 40 MG TABLET PO SCH (21:21)
[2019-12-16 05:29] LABS: Basophils % 0.1 % (0.0-0.8); Hematocrit 25.3 VOL% (35.7-47.0); Immature Granulocytes % 3.3 %; Immature Granulocytes Absolute 1.02 #; Lymphocytes # 2.2 10*3/uL (1.4-4.0); Lymphocytes % 7.1 % (21.3-54.2); Mean Corpuscular HGB Conc 31.6 GM/DL (32-36); Mean Corpuscular Volume 88.2 FL (87-102); Mean Platelet Volume 9.7 FL (9.6-12.0); Monocytes % 5.6 % (1.7-12.7); NRBC # 0.05 10*3/uL; Neutrophils % 83.9 % (38.7-73.9); Platelet Count 559 T/CUMM (130-400); Red Blood Count 2.87 MC/CUMM (3.8-5.5); Red Cell Distribution Width 16.3 % (9.3-17.3); White Blood Count 30.8 T/CUMM (4-12)
[2019-12-16 05:57] LABS: Band Neutrophils 1 % (0-10); Hypochromasia Slight; Lymphocytes 6 % (20-55); Platelet Estimate Increased; Segmented Neutrophils 90 % (50-85); Total Cells Counted 100
[2019-12-16 06:07] LABS: Calcium 8.9 MG/DL (8.5-10.1)
[2019-12-16] MEDS: LACTATED RINGERS 1,000 ML IV SCH ×3 (06:38→16:30)
[2019-12-16] MEDS: HYDROmorphone 2 MG/1 ML VIAL IV PRN (06:38)
[2019-12-16] MEDS: MEROPENEM 2,000 MG in SODIUM CHLORIDE 0.9% 100 ML IV SCH (08:34)
[2019-12-16] MEDS: VANCOMYCIN INJ 1,500 MG in SODIUM CHLORIDE 0.9% 500 ML IV SCH (08:36)
[2019-12-16] MEDS: FUROSEMIDE 20 MG TABLET PO SCH ×2 (08:38→21:06)
[2019-12-16] MEDS: glipiZIDE 10 MG TABLET PO SCH ×2 (08:38→21:06)
[2019-12-16] MEDS: FERROUS SULFATE 325 MG TABLET PO SCH ×3 (08:38→21:06)
[2019-12-16] MEDS: METOPROLOL SUCCINATE XL 50 MG TABLET PO SCH ×2 (08:38→21:06)
[2019-12-16] MEDS: LOSARTAN 50 MG TABLET PO SCH (08:38)
[2019-12-16] MEDS: ASPIRIN EC 81 MG TABLET PO SCH (08:38)
[2019-12-16] MEDS: FOLIC ACID 1 MG TABLET PO SCH (08:38)
[2019-12-16] MEDS: PANTOPRAZOLE 40 MG TABLET PO SCH (08:38)
[2019-12-16] MEDS: INSULIN LISPRO 100 UNIT/ML SUBCUT SCH ×3 (08:45→16:30)
[2019-12-16] MEDS: CYANOCOBALAMIN 500 MCG TABLET PO SCH (14:53)
[2019-12-16] MEDS: ATORVASTATIN 40 MG TABLET PO SCH (21:06)
[2019-12-16] MEDS: GABAPENTIN 300 MG CAPSULE PO PRN (21:06)
[2019-12-17] MEDS: LACTATED RINGERS 1,000 ML IV SCH ×2 (04:55→17:17)
[2019-12-17 06:23] LABS: Basophils # 0.1 10*3/uL (0.0-0.2); Basophils % 0.2 % (0.0-0.8); Eosinophils # 0.1 10*3/uL (0.0-0.87); Eosinophils % 0.5 % (0.00-10.9); Hematocrit 27.1 VOL% (35.7-47.0); Hemoglobin 8.7 GM/DL (12.0-16.0); Immature Granulocytes % 2.8 %; Immature Granulocytes Absolute 0.78 #; Lymphocytes # 3.3 10*3/uL (1.4-4.0); Lymphocytes % 12.1 % (21.3-54.2); Mean Corpuscular HGB Conc 32.1 GM/DL (32-36); Mean Corpuscular Volume 87.1 FL (87-102); Mean Platelet Volume 9.6 FL (9.6-12.0); Monocytes % 5.4 % (1.7-12.7); NRBC # 0.05 10*3/uL; Platelet Count 604 T/CUMM (130-400); Red Blood Count 3.11 MC/CUMM (3.8-5.5); Red Cell Distribution Width 16.8 % (9.3-17.3); White Blood Count 27.4 T/CUMM (4-12)
[2019-12-17 06:39] LABS: Calcium 8.4 MG/DL (8.5-10.1); Osmolality,Calculated 282.7 MOS/KG (273-304)
[2019-12-17 06:47] LABS: Lymphocytes 14 % (20-55); Segmented Neutrophils 81 % (50-85); Total Cells Counted 100
[2019-12-17 06:48] LABS: Anisocytosis Slight; Macrocytosis Slight; Platelet Estimate Increased; Polychromasia 1+
[2019-12-17] MEDS: FUROSEMIDE 20 MG TABLET PO SCH ×2 (09:35→20:44)
[2019-12-17] MEDS: MEROPENEM 2,000 MG in SODIUM CHLORIDE 0.9% 100 ML IV SCH (09:35)
[2019-12-17] MEDS: FOLIC ACID 1 MG TABLET PO SCH (09:35)
[2019-12-17] MEDS: ASPIRIN EC 81 MG TABLET PO SCH (09:35)
[2019-12-17] MEDS: PANTOPRAZOLE 40 MG TABLET PO SCH (09:36)
[2019-12-17] MEDS: METOPROLOL SUCCINATE XL 50 MG TABLET PO SCH ×2 (09:36→20:44)
[2019-12-17] MEDS: glipiZIDE 10 MG TABLET PO SCH ×2 (09:36→20:43)
[2019-12-17] MEDS: LOSARTAN 50 MG TABLET PO SCH (09:36)
[2019-12-17] MEDS: FERROUS SULFATE 325 MG TABLET PO SCH ×3 (09:36→20:44)
[2019-12-17] MEDS: HYDROmorphone 2 MG/1 ML VIAL IV PRN ×2 (11:35→19:46)
[2019-12-17] MEDS: INSULIN LISPRO 100 UNIT/ML SUBCUT SCH ×3 (11:37→17:53)
[2019-12-17] MEDS: CYANOCOBALAMIN 500 MCG TABLET PO SCH (11:39)
[2019-12-17] MEDS: ONDANSETRON 4 MG/2 ML VIAL IV PRN (17:30)
[2019-12-17] MEDS: ATORVASTATIN 40 MG TABLET PO SCH (20:43)
[2019-12-17] MEDS: VANCOMYCIN INJ 1,500 MG in SODIUM CHLORIDE 0.9% 500 ML IV SCH (20:47)
[2019-12-18] MEDS: LACTATED RINGERS 1,000 ML IV SCH ×3 (03:45→20:19)
[2019-12-18] MEDS: HYDROmorphone 2 MG/1 ML VIAL IV PRN ×2 (06:46→19:57)
[2019-12-18 07:27] LABS: Basophils # 0.1 10*3/uL (0.0-0.2); Basophils % 0.2 % (0.0-0.8); Eosinophils # 0.1 10*3/uL (0.0-0.87); Eosinophils % 0.3 % (0.00-10.9); Hematocrit 28.7 VOL% (35.7-47.0); Hemoglobin 9.1 GM/DL (12.0-16.0); Immature Granulocytes % 2.4 %; Immature Granulocytes Absolute 0.57 #; Lymphocytes # 2.5 10*3/uL (1.4-4.0); Lymphocytes % 10.4 % (21.3-54.2); Mean Corpuscular HGB Conc 31.7 GM/DL (32-36); Mean Platelet Volume 9.2 FL (9.6-12.0); Monocytes % 5.8 % (1.7-12.7); NRBC # 0.03 10*3/uL; Neutrophils % 80.9 % (38.7-73.9); Platelet Count 625 T/CUMM (130-400); Red Blood Count 3.26 MC/CUMM (3.8-5.5); Red Cell Distribution Width 16.7 % (9.3-17.3); White Blood Count 23.8 T/CUMM (4-12)
[2019-12-18 07:40] LABS: Calcium 8.8 MG/DL (8.5-10.1); Osmolality,Calculated 279.7 MOS/KG (273-304)
[2019-12-18] MEDS: INSULIN LISPRO 100 UNIT/ML SUBCUT SCH ×3 (10:48→16:29)
[2019-12-18] MEDS: PANTOPRAZOLE 40 MG TABLET PO SCH (10:49)
[2019-12-18] MEDS: FOLIC ACID 1 MG TABLET PO SCH (10:49)
[2019-12-18] MEDS: LOSARTAN 50 MG TABLET PO SCH (10:49)
[2019-12-18] MEDS: MEROPENEM 2,000 MG in SODIUM CHLORIDE 0.9% 100 ML IV SCH ×3 (10:49→21:05)
[2019-12-18] MEDS: FUROSEMIDE 20 MG TABLET PO SCH ×2 (10:49→20:17)
[2019-12-18] MEDS: FERROUS SULFATE 325 MG TABLET PO SCH ×3 (10:49→20:17)
[2019-12-18] MEDS: METOPROLOL SUCCINATE XL 50 MG TABLET PO SCH ×2 (10:49→20:17)
[2019-12-18] MEDS: ASPIRIN EC 81 MG TABLET PO SCH (10:49)
[2019-12-18] MEDS: CYANOCOBALAMIN 500 MCG TABLET PO SCH (10:50)
[2019-12-18] MEDS: glipiZIDE 10 MG TABLET PO SCH ×2 (10:56→20:17)
[2019-12-18 11:44] LABS: Hypochromasia 2+; Lymphocytes 17 % (20-55); Platelet Estimate Increased; Polychromasia Slight; Schistocytes Few; Segmented Neutrophils 81 % (50-85); Target Cells Few; Total Cells Counted 100
[2019-12-18] MEDS: ATORVASTATIN 40 MG TABLET PO SCH (20:17)
[2019-12-19] MEDS: LACTATED RINGERS 1,000 ML IV SCH ×2 (05:15→17:18)
[2019-12-19] MEDS: HYDROmorphone 2 MG/1 ML VIAL IV PRN ×2 (07:05→18:46)
[2019-12-19 08:21] LABS: Basophils # 0.1 10*3/uL (0.0-0.2); Basophils % 0.2 % (0.0-0.8); Eosinophils # 0.1 10*3/uL (0.0-0.87); Eosinophils % 0.4 % (0.00-10.9); Hematocrit 25.3 VOL% (35.7-47.0); Hemoglobin 7.9 GM/DL (12.0-16.0); Immature Granulocytes % 3.1 %; Immature Granulocytes Absolute 0.73 #; Lymphocytes # 2.4 10*3/uL (1.4-4.0); Lymphocytes % 10.1 % (21.3-54.2); Mean Corpuscular HGB Conc 31.2 GM/DL (32-36); Mean Corpuscular Volume 88.2 FL (87-102); Mean Platelet Volume 9.4 FL (9.6-12.0); Monocytes % 5.8 % (1.7-12.7); Neutrophils % 80.4 % (38.7-73.9); Platelet Count 594 T/CUMM (130-400); Red Blood Count 2.87 MC/CUMM (3.8-5.5); Red Cell Distribution Width 16.9 % (9.3-17.3); White Blood Count 23.9 T/CUMM (4-12)
[2019-12-19 08:34] LABS: Calcium 8.5 MG/DL (8.5-10.1); Osmolality,Calculated 283.7 MOS/KG (273-304)
[2019-12-19] MEDS: INSULIN LISPRO 100 UNIT/ML SUBCUT SCH ×3 (09:32→16:57)
[2019-12-19] MEDS: METOPROLOL SUCCINATE XL 50 MG TABLET PO SCH ×2 (10:21→20:40)
[2019-12-19] MEDS: glipiZIDE 10 MG TABLET PO SCH ×2 (10:21→20:40)
[2019-12-19] MEDS: FERROUS SULFATE 325 MG TABLET PO SCH ×3 (10:21→20:40)
[2019-12-19] MEDS: VANCOMYCIN INJ 1,500 MG in SODIUM CHLORIDE 0.9% 500 ML IV SCH (10:21)
[2019-12-19] MEDS: PANTOPRAZOLE 40 MG TABLET PO SCH (10:21)
[2019-12-19] MEDS: ASPIRIN EC 81 MG TABLET PO SCH (10:21)
[2019-12-19] MEDS: LOSARTAN 50 MG TABLET PO SCH (10:21)
[2019-12-19] MEDS: FOLIC ACID 1 MG TABLET PO SCH (10:21)
[2019-12-19] MEDS: FUROSEMIDE 20 MG TABLET PO SCH ×2 (10:21→20:40)
[2019-12-19] MEDS: CYANOCOBALAMIN 500 MCG TABLET PO SCH (10:22)
[2019-12-19 11:25] LABS: Band Neutrophils 2 % (0-10); Eosinophils 1 % (0-10); Lymphocytes 5 % (20-55); Myelocytes 1 %; Polychromasia Slight; Segmented Neutrophils 87 % (50-85); Total Cells Counted 100
[2019-12-19 11:26] LABS: Anisocytosis 2+; Hypochromasia 2+; Platelet Estimate Increased; Target Cells Few
[2019-12-19] MEDS: MEROPENEM 2,000 MG in SODIUM CHLORIDE 0.9% 100 ML IV SCH ×2 (12:05→21:20)
[2019-12-19] MEDS: ONDANSETRON 4 MG/2 ML VIAL IV PRN (17:18)
[2019-12-19] MEDS: ATORVASTATIN 40 MG TABLET PO SCH (20:40)
[2019-12-20] MEDS: LACTATED RINGERS 1,000 ML IV SCH ×3 (02:19→19:45)
[2019-12-20 06:33] LABS: Basophils # 0.1 10*3/uL (0.0-0.2); Basophils % 0.3 % (0.0-0.8); Eosinophils # 0.1 10*3/uL (0.0-0.87); Eosinophils % 0.6 % (0.00-10.9); Hematocrit 24.2 VOL% (35.7-47.0); Hemoglobin 7.8 GM/DL (12.0-16.0); Immature Granulocytes % 2.2 %; Immature Granulocytes Absolute 0.51 #; Lymphocytes # 2.5 10*3/uL (1.4-4.0); Mean Corpuscular HGB Conc 32.2 GM/DL (32-36); Mean Corpuscular Volume 87.7 FL (87-102); Mean Platelet Volume 9.4 FL (9.6-12.0); Neutrophils % 80.9 % (38.7-73.9); Platelet Count 573 T/CUMM (130-400); Red Blood Count 2.76 MC/CUMM (3.8-5.5); Red Cell Distribution Width 16.7 % (9.3-17.3); White Blood Count 22.9 T/CUMM (4-12)
[2019-12-20 06:45] LABS: Calcium 8.5 MG/DL (8.5-10.1); Osmolality,Calculated 281.7 MOS/KG (273-304)
[2019-12-20 06:57] LABS: Band Neutrophils 1 % (0-10); Lymphocytes 7 % (20-55); Platelet Estimate Adequate; Segmented Neutrophils 87 % (50-85); Total Cells Counted 100
[2019-12-20 06:58] LABS: Hypochromasia 1+; Microcytosis 1+
[2019-12-20] MEDS ORDERED: ERGOCALCIFEROL 50,000 UNIT CAPSULE PO SCH (09:00)
[2019-12-20] MEDS: INSULIN LISPRO 100 UNIT/ML SUBCUT SCH ×3 (09:34→17:49)
[2019-12-20] MEDS: METOPROLOL SUCCINATE XL 50 MG TABLET PO SCH ×2 (09:35→21:00)
[2019-12-20] MEDS: LOSARTAN 50 MG TABLET PO SCH (09:35)
[2019-12-20] MEDS ORDERED: LIDOCAINE 1% 20 ML VIAL ONE (09:52)
[2019-12-20] MEDS: FERROUS SULFATE 325 MG TABLET PO SCH ×3 (10:09→21:01)
[2019-12-20] MEDS ORDERED: HYDROmorphone 2 MG/1 ML VIAL IV PRN (11:21)
[2019-12-20] MEDS ORDERED: ONDANSETRON 4 MG/2 ML VIAL IV PRN (11:21)
[2019-12-20] MEDS: PANTOPRAZOLE 40 MG TABLET PO SCH (12:33)
[2019-12-20] MEDS: glipiZIDE 10 MG TABLET PO SCH ×2 (12:33→21:00)
[2019-12-20] MEDS: ASPIRIN EC 81 MG TABLET PO SCH (12:34)
[2019-12-20] MEDS: FOLIC ACID 1 MG TABLET PO SCH (12:34)
[2019-12-20] MEDS: FUROSEMIDE 20 MG TABLET PO SCH ×2 (12:34→21:00)
[2019-12-20] MEDS: MEROPENEM 500 MG in SODIUM CHLORIDE 0.9% 100 ML IV SCH ×2 (12:34→17:35)
[2019-12-20] MEDS: CYANOCOBALAMIN 500 MCG TABLET PO SCH (12:41)
[2019-12-20] MEDS: ONDANSETRON 4 MG/2 ML VIAL IV PRN (12:41)
[2019-12-20] MEDS: MEROPENEM 2,000 MG in SODIUM CHLORIDE 0.9% 100 ML IV SCH (12:47)
[2019-12-20] MEDS: HYDROmorphone 2 MG/1 ML VIAL IV PRN (15:37)
[2019-12-20] MEDS ORDERED: GLUCAGON 1 MG VIAL IM PRN (16:31)
[2019-12-20] MEDS ORDERED: DEXTROSE 50% 25 GM/50 ML VIAL IV PRN (16:31)
[2019-12-20] MEDS: GABAPENTIN 300 MG CAPSULE PO PRN (19:55)
[2019-12-20] MEDS: VANCOMYCIN INJ 1,500 MG in SODIUM CHLORIDE 0.9% 500 ML IV SCH (20:59)
[2019-12-20] MEDS: ATORVASTATIN 40 MG TABLET PO SCH (21:01)
[2019-12-21] MEDS: MEROPENEM 500 MG in SODIUM CHLORIDE 0.9% 100 ML IV SCH ×5 (00:30→22:08)
[2019-12-21] MEDS: LACTATED RINGERS 1,000 ML IV SCH ×3 (02:30→18:16)
[2019-12-21] MEDS ORDERED: SODIUM HYPOCHLORITE 0.25% IRRIG 473 ML BOTTLE TOP SCH (09:00)
[2019-12-21] MEDS: INSULIN LISPRO 100 UNIT/ML SUBCUT SCH ×3 (09:36→17:08)
[2019-12-21] MEDS: glipiZIDE 10 MG TABLET PO SCH ×2 (10:23→20:24)
[2019-12-21] MEDS: FOLIC ACID 1 MG TABLET PO SCH (10:23)
[2019-12-21] MEDS: LOSARTAN 50 MG TABLET PO SCH (10:23)
[2019-12-21] MEDS: FUROSEMIDE 20 MG TABLET PO SCH ×2 (10:23→20:24)
[2019-12-21] MEDS: FERROUS SULFATE 325 MG TABLET PO SCH ×4 (10:23→20:25)
[2019-12-21] MEDS: HYDROmorphone 2 MG/1 ML VIAL IV PRN ×2 (10:24→20:25)
[2019-12-21] MEDS: METOPROLOL SUCCINATE XL 50 MG TABLET PO SCH ×2 (10:24→20:24)
[2019-12-21] MEDS: ASPIRIN EC 81 MG TABLET PO SCH (10:24)
[2019-12-21] MEDS: PANTOPRAZOLE 40 MG TABLET PO SCH (10:24)
[2019-12-21] MEDS: ACETIC ACID 0.25% IRRIGATION 1,000 ML BOTTLE IRRIG SCH ×2 (10:37→20:25)
[2019-12-21] MEDS: CYANOCOBALAMIN 500 MCG TABLET PO SCH (10:37)
[2019-12-21] MEDS: ATORVASTATIN 40 MG TABLET PO SCH (20:25)
[2019-12-22] MEDS: LACTATED RINGERS 1,000 ML IV SCH (04:38)
[2019-12-22] MEDS: MEROPENEM 500 MG in SODIUM CHLORIDE 0.9% 100 ML IV SCH (05:01)
[2019-12-22 09:07] LABS: Basophils % 0.2 % (0.0-0.8); Eosinophils # 0.2 10*3/uL (0.0-0.87); Eosinophils % 1.4 % (0.00-10.9); Hematocrit 26.1 VOL% (35.7-47.0); Hemoglobin 8.1 GM/DL (12.0-16.0); Immature Granulocytes % 1.3 %; Immature Granulocytes Absolute 0.22 #; Lymphocytes # 2.6 10*3/uL (1.4-4.0); Lymphocytes % 15.3 % (21.3-54.2); Mean Corpuscular Volume 89.4 FL (87-102); Mean Platelet Volume 9.1 FL (9.6-12.0); Monocytes % 6.5 % (1.7-12.7); Neutrophils % 75.3 % (38.7-73.9); Platelet Count 536 T/CUMM (130-400); Red Blood Count 2.92 MC/CUMM (3.8-5.5); Red Cell Distribution Width 16.5 % (9.3-17.3); White Blood Count 16.8 T/CUMM (4-12)
[2019-12-22] MEDS: FUROSEMIDE 20 MG TABLET PO SCH ×2 (09:35→21:34)
[2019-12-22] MEDS: FOLIC ACID 1 MG TABLET PO SCH (09:35)
[2019-12-22] MEDS: PANTOPRAZOLE 40 MG TABLET PO SCH (09:35)
[2019-12-22] MEDS: ASPIRIN EC 81 MG TABLET PO SCH (09:35)
[2019-12-22] MEDS: LOSARTAN 50 MG TABLET PO SCH (09:35)
[2019-12-22] MEDS: glipiZIDE 10 MG TABLET PO SCH ×2 (09:35→21:34)
[2019-12-22] MEDS: METOPROLOL SUCCINATE XL 50 MG TABLET PO SCH ×2 (09:35→21:34)
[2019-12-22] MEDS: FERROUS SULFATE 325 MG TABLET PO SCH ×3 (09:35→21:34)
[2019-12-22] MEDS: INSULIN LISPRO 100 UNIT/ML SUBCUT SCH ×3 (09:36→16:19)
[2019-12-22 09:37] LABS: Calcium 8.7 MG/DL (8.5-10.1); Osmolality,Calculated 281.3 MOS/KG (273-304)
[2019-12-22] MEDS: ACETIC ACID 0.25% IRRIGATION 1,000 ML BOTTLE IRRIG SCH ×2 (09:37→21:34)
[2019-12-22] MEDS: SULFAMETHOX/TRIMETHOPRIM 800-160 MG TABLET PO SCH ×2 (09:40→21:34)
[2019-12-22] MEDS: CYANOCOBALAMIN 500 MCG TABLET PO SCH (09:41)
[2019-12-22] MEDS: SODIUM HYPOCHLORITE 0.25% IRRIG 473 ML BOTTLE TOP SCH (11:22)
[2019-12-22] MEDS: HYDROmorphone 2 MG/1 ML VIAL IV PRN ×2 (11:22→19:25)
[2019-12-22] MEDS: CLINDAMYCIN 300 MG CAPSULE PO SCH ×2 (14:23→21:34)
[2019-12-22] MEDS: ONDANSETRON 4 MG/2 ML VIAL IV PRN (21:31)
[2019-12-22] MEDS: GABAPENTIN 300 MG CAPSULE PO PRN (21:34)
[2019-12-22] MEDS: ATORVASTATIN 40 MG TABLET PO SCH (21:34)
[2019-12-23 05:46] LABS: Calcium 8.7 MG/DL (8.5-10.1); Osmolality,Calculated 278.4 MOS/KG (273-304)
[2019-12-23 05:47] LABS: Basophils % 0.3 % (0.0-0.8); Eosinophils # 0.2 10*3/uL (0.0-0.87); Eosinophils % 1.2 % (0.00-10.9); Hematocrit 26.6 VOL% (35.7-47.0); Hemoglobin 8.3 GM/DL (12.0-16.0); Immature Granulocytes % 1.2 %; Immature Granulocytes Absolute 0.17 #; Lymphocytes # 2.2 10*3/uL (1.4-4.0); Lymphocytes % 15.9 % (21.3-54.2); Mean Corpuscular HGB Conc 31.2 GM/DL (32-36); Mean Corpuscular Volume 88.4 FL (87-102); Monocytes % 5.5 % (1.7-12.7); Neutrophils % 75.9 % (38.7-73.9); Platelet Count 450 T/CUMM (130-400); Red Blood Count 3.01 MC/CUMM (3.8-5.5); Red Cell Distribution Width 16.6 % (9.3-17.3); White Blood Count 13.8 T/CUMM (4-12)
[2019-12-23] MEDS: CLINDAMYCIN 300 MG CAPSULE PO SCH ×3 (06:25→21:47)
[2019-12-23 08:17] LABS: Alanine Aminotransferase 20 U/L (13-56); Alkaline Phosphatase 468 U/L (45-117); Aspartate Amino Transferase 30 U/L (0-37); Bilirubin,Indirect 0.3 MG/DL (0.0-1.0); Bilirubin,Total < 0.39 MG/DL (0.2-1.0); Total Protein 6.5 G/DL (6.4-8.3)
[2019-12-23] MEDS: INSULIN LISPRO 100 UNIT/ML SUBCUT SCH ×3 (08:35→16:37)
[2019-12-23] MEDS: FUROSEMIDE 20 MG TABLET PO SCH ×2 (09:03→21:48)
[2019-12-23] MEDS: CYANOCOBALAMIN 500 MCG TABLET PO SCH (09:03)
[2019-12-23] MEDS: FOLIC ACID 1 MG TABLET PO SCH (09:03)
[2019-12-23] MEDS: LOSARTAN 50 MG TABLET PO SCH (09:03)
[2019-12-23] MEDS: PANTOPRAZOLE 40 MG TABLET PO SCH (09:03)
[2019-12-23] MEDS: SULFAMETHOX/TRIMETHOPRIM 800-160 MG TABLET PO SCH ×2 (09:03→21:47)
[2019-12-23] MEDS: ASPIRIN EC 81 MG TABLET PO SCH (09:03)
[2019-12-23] MEDS: glipiZIDE 10 MG TABLET PO SCH ×2 (09:03→21:48)
[2019-12-23] MEDS: METOPROLOL SUCCINATE XL 50 MG TABLET PO SCH ×2 (09:03→21:47)
[2019-12-23] MEDS: SODIUM HYPOCHLORITE 0.25% IRRIG 473 ML BOTTLE TOP SCH (09:04)
[2019-12-23] MEDS: FERROUS SULFATE 325 MG TABLET PO SCH ×3 (09:04→21:48)
[2019-12-23] MEDS: HYDROmorphone 2 MG/1 ML VIAL IV PRN (10:42)
[2019-12-23] MEDS: ONDANSETRON 4 MG/2 ML VIAL IV PRN ×2 (12:15→21:46)
[2019-12-23] MEDS: ATORVASTATIN 40 MG TABLET PO SCH (21:48)
[2019-12-23] MEDS: GABAPENTIN 300 MG CAPSULE PO PRN (21:48)
[2019-12-24] MEDS: CLINDAMYCIN 300 MG CAPSULE PO SCH (05:43)
[2019-12-24] MEDS: SULFAMETHOX/TRIMETHOPRIM 800-160 MG TABLET PO SCH (08:52)
[2019-12-24] MEDS: PANTOPRAZOLE 40 MG TABLET PO SCH (08:52)
[2019-12-24] MEDS: FOLIC ACID 1 MG TABLET PO SCH (08:52)
[2019-12-24] MEDS: FUROSEMIDE 20 MG TABLET PO SCH (08:52)
[2019-12-24] MEDS: LOSARTAN 50 MG TABLET PO SCH (08:52)
[2019-12-24] MEDS: FERROUS SULFATE 325 MG TABLET PO SCH (08:52)
[2019-12-24] MEDS: METOPROLOL SUCCINATE XL 50 MG TABLET PO SCH (08:52)
[2019-12-24] MEDS: glipiZIDE 10 MG TABLET PO SCH (08:52)
[2019-12-24] MEDS: ASPIRIN EC 81 MG TABLET PO SCH (08:52)
[2019-12-24] MEDS: SODIUM HYPOCHLORITE 0.25% IRRIG 473 ML BOTTLE TOP SCH (08:53)
[2019-12-24] MEDS: CYANOCOBALAMIN 500 MCG TABLET PO SCH (08:53)
[2019-12-24] MEDS: INSULIN LISPRO 100 UNIT/ML SUBCUT SCH ×2 (08:54→11:58)
[2019-12-24 11:41] VITALS: BP 151/79
== END 2019-12-24 13:50 | disposition home health service (06) | DRG 854 ==
LOC: EDUNIT# → EDBD → N.ED 14:40 → N.EDINP 15:47 → N.3E 17:21
PROVIDERS: ADMIT Surgery; ATTEND Surgery

== ENCOUNTER 2020-01-19 10:31 | Inpatient (IN) ==
[2020-01-19] MEDS ORDERED: ONDANSETRON 4 MG/2 ML VIAL IV STA (11:07)
[2020-01-19] MEDS ORDERED: SODIUM CHLORIDE 0.9% 1,000 ML IV STA (11:09)
[2020-01-19 12:55] LABS: Basophils % 0.1 % (0.0-0.8); Hematocrit 39.1 VOL% (35.7-47.0); Hemoglobin 12.8 GM/DL (12.0-16.0); Immature Granulocytes % 0.5 %; Immature Granulocytes Absolute 0.04 #; Lymphocytes # 1.1 10*3/uL (1.4-4.0); Lymphocytes % 14.3 % (21.3-54.2); Mean Corpuscular HGB Conc 32.7 GM/DL (32-36); Mean Corpuscular Volume 84.3 FL (87-102); Mean Platelet Volume 10.2 FL (9.6-12.0); Monocytes % 6.6 % (1.7-12.7); Neutrophils % 78.5 % (38.7-73.9); Platelet Count 400 T/CUMM (130-400); Red Blood Count 4.64 MC/CUMM (3.8-5.5); Red Cell Distribution Width 17.3 % (9.3-17.3); White Blood Count 7.6 T/CUMM (4-12)
[2020-01-19 13:23] LABS: Albumin 1.5 G/DL (3.4-5.0); Bilirubin,Total 0.4 MG/DL (0.2-1.0); Calcium 8.8 MG/DL (8.5-10.1); Osmolality,Calculated 288.2 MOS/KG (273-304); Total Protein 7.4 G/DL (6.4-8.3)
[2020-01-19] MEDS ORDERED: DEXTROSE 50% 25 GM/50 ML SYRINGE IV PRN (14:42)
[2020-01-19] MEDS ORDERED: DEXTROSE 50% 25 GM/50 ML VIAL IV PRN (14:42)
[2020-01-19] MEDS ORDERED: ACETAMINOPHEN 325 MG TABLET PO PRN (14:42)
[2020-01-19] MEDS ORDERED: GLUCAGON 1 MG VIAL IM PRN ×2 (14:42)
[2020-01-19] MEDS ORDERED: SODIUM CHLORIDE 0.9% 1,000 ML IV SCH (15:00)
[2020-01-19] MEDS ORDERED: INFLUENZA VIRUS VACCINE 0.5 ML SYRINGE IM ONE (16:55)
[2020-01-19] MEDS: INSULIN LISPRO 100 UNIT/ML SUBCUT SCH ×2 (18:07→21:37)
[2020-01-19] MEDS: SODIUM CHLORIDE 0.9% 1,000 ML IV SCH (18:48)
[2020-01-19 19:30] LABS: Hematocrit 36.3 VOL% (35.7-47.0); Hemoglobin 11.8 GM/DL (12.0-16.0)
[2020-01-19] MEDS: CLINDAMYCIN INJ 600 MG in PREMIX 1 EACH IV SCH (20:45)
[2020-01-20 01:07] LABS: Hematocrit 33.3 VOL% (35.7-47.0); Hemoglobin 11.1 GM/DL (12.0-16.0)
[2020-01-20] MEDS: CLINDAMYCIN INJ 600 MG in PREMIX 1 EACH IV SCH ×3 (03:40→21:40)
[2020-01-20 05:45] LABS: Basophils % 0.2 % (0.0-0.8); Hematocrit 33.3 VOL% (35.7-47.0); Hemoglobin 10.8 GM/DL (12.0-16.0); Immature Granulocytes % 0.4 %; Immature Granulocytes Absolute 0.02 #; Lymphocytes # 1.8 10*3/uL (1.4-4.0); Lymphocytes % 32.7 % (21.3-54.2); Mean Corpuscular HGB Conc 32.4 GM/DL (32-36); Mean Corpuscular Volume 84.5 FL (87-102); Mean Platelet Volume 10.7 FL (9.6-12.0); Monocytes % 10.2 % (1.7-12.7); Neutrophils % 56.5 % (38.7-73.9); Platelet Count 322 T/CUMM (130-400); Red Blood Count 3.94 MC/CUMM (3.8-5.5); Red Cell Distribution Width 17.4 % (9.3-17.3); White Blood Count 5.4 T/CUMM (4-12)
[2020-01-20] MEDS: ONDANSETRON 4 MG/2 ML VIAL IV PRN ×2 (06:03→16:56)
[2020-01-20 06:07] LABS: Calcium 7.7 MG/DL (8.5-10.1); Osmolality,Calculated 292.5 MOS/KG (273-304)
[2020-01-20 06:16] LABS: C-Reactive Protein HS Cardiac 3.16 MG/DL (0-0.3); Ferritin 570.6 ng/ml (8-252)
[2020-01-20] MEDS: POTASSIUM CHLORIDE RIDER 10 MEQ in PREMIX 1 EACH IV PRN ×5 (06:37→18:58)
[2020-01-20] MEDS ORDERED: POTASSIUM CHLORIDE 20 MEQ TABLET PO ONE (09:00)
[2020-01-20] MEDS ORDERED: DEXAMETHASONE 4 MG/1 ML VIAL IV SCH (09:00)
[2020-01-20] MEDS: INSULIN LISPRO 100 UNIT/ML SUBCUT SCH ×4 (09:14→22:10)
[2020-01-20 10:24] LABS: Hematocrit 33.4 VOL% (35.7-47.0); Hemoglobin 11.2 GM/DL (12.0-16.0)
[2020-01-20] MEDS: SODIUM CHLORIDE 0.9% 1,000 ML IV SCH (22:08)
[2020-01-21] MEDS: CLINDAMYCIN INJ 600 MG in PREMIX 1 EACH IV SCH ×3 (03:28→21:01)
[2020-01-21 05:51] LABS: Basophils % 0.2 % (0.0-0.8); Eosinophils % 0.2 % (0.00-10.9); Hematocrit 34.4 VOL% (35.7-47.0); Immature Granulocytes % 0.4 %; Immature Granulocytes Absolute 0.02 #; Lymphocytes # 1.7 10*3/uL (1.4-4.0); Lymphocytes % 33.8 % (21.3-54.2); Mean Corpuscular Volume 84.5 FL (87-102); Mean Platelet Volume 10.3 FL (9.6-12.0); Monocytes % 11.4 % (1.7-12.7); Platelet Count 370 T/CUMM (130-400); Red Blood Count 4.07 MC/CUMM (3.8-5.5); Red Cell Distribution Width 17.2 % (9.3-17.3)
[2020-01-21 06:04] LABS: Calcium 7.9 MG/DL (8.5-10.1); Osmolality,Calculated 291.5 MOS/KG (273-304)
[2020-01-21 06:22] LABS: Hypochromasia 1+
[2020-01-21 06:23] LABS: Burr Cells Slight; Microcytosis 1+; Platelet Estimate Normal
[2020-01-21] MEDS: INSULIN LISPRO 100 UNIT/ML SUBCUT SCH ×4 (07:56→21:44)
[2020-01-21] MEDS: POTASSIUM CHLORIDE RIDER 10 MEQ in PREMIX 1 EACH IV PRN ×3 (10:00→16:32)
[2020-01-21] MEDS: SODIUM CHLORIDE 0.9% 1,000 ML IV SCH ×3 (16:31→21:45)
[2020-01-21] MEDS: ONDANSETRON 4 MG/2 ML VIAL IV PRN (21:47)
[2020-01-22] MEDS: CLINDAMYCIN INJ 600 MG in PREMIX 1 EACH IV SCH ×2 (04:21→12:01)
[2020-01-22 06:02] LABS: Basophils % 0.2 % (0.0-0.8); Eosinophils % 0.2 % (0.00-10.9); Hematocrit 34.2 VOL% (35.7-47.0); Hemoglobin 11.1 GM/DL (12.0-16.0); Immature Granulocytes % 0.4 %; Immature Granulocytes Absolute 0.02 #; Lymphocytes % 42.7 % (21.3-54.2); Mean Corpuscular HGB Conc 32.5 GM/DL (32-36); Mean Corpuscular Volume 83.4 FL (87-102); Mean Platelet Volume 9.7 FL (9.6-12.0); Neutrophils % 43.5 % (38.7-73.9); Platelet Count 334 T/CUMM (130-400); Red Cell Distribution Width 17.1 % (9.3-17.3); White Blood Count 4.7 T/CUMM (4-12)
[2020-01-22] MEDS: SODIUM CHLORIDE 0.9% 1,000 ML IV SCH ×2 (06:19→20:48)
[2020-01-22 06:35] LABS: Calcium 7.7 MG/DL (8.5-10.1); Osmolality,Calculated 291.3 MOS/KG (273-304)
[2020-01-22] MEDS ORDERED: POTASSIUM CHLORIDE RIDER 10 MEQ in PREMIX 1 EACH IV ONE (06:46)
[2020-01-22] MEDS: POTASSIUM CHLORIDE RIDER 10 MEQ in PREMIX 1 EACH IV PRN ×3 (07:52→10:38)
[2020-01-22] MEDS: INSULIN LISPRO 100 UNIT/ML SUBCUT SCH ×4 (08:53→20:50)
[2020-01-22] MEDS: ONDANSETRON 4 MG/2 ML VIAL IV PRN ×2 (10:29→17:42)
[2020-01-22] MEDS ORDERED: GABAPENTIN 300 MG CAPSULE PO PRN (12:23)
[2020-01-22] MEDS ORDERED: NITROGLYCERIN SL 0.4 MG TABLET SL PRN (12:23)
[2020-01-22] MEDS: ENOXAPARIN 30 MG/0.3 ML SYRINGE SUBCUT SCH (13:38)
[2020-01-22] MEDS: FERROUS SULFATE 325 MG TABLET PO SCH ×2 (14:38→20:49)
[2020-01-22] MEDS: ATORVASTATIN 40 MG TABLET PO SCH (20:49)
[2020-01-22] MEDS: ASCORBIC ACID 500 MG TABLET PO SCH (20:49)
[2020-01-22] MEDS: METOPROLOL SUCCINATE XL 25 MG TABLET PO SCH (20:50)
[2020-01-22] MEDS ORDERED: METOPROLOL SUCCINATE XL 50 MG TABLET PO SCH (21:00)
[2020-01-23] MEDS: ONDANSETRON 4 MG/2 ML VIAL IV PRN ×2 (04:13→11:41)
[2020-01-23] MEDS: SODIUM CHLORIDE 0.9% 1,000 ML IV SCH ×3 (04:50→22:22)
[2020-01-23 05:20] LABS: Calcium 7.7 MG/DL (8.5-10.1); Osmolality,Calculated 292.1 MOS/KG (273-304)
[2020-01-23] MEDS: INSULIN LISPRO 100 UNIT/ML SUBCUT SCH ×4 (07:17→20:40)
[2020-01-23] MEDS: DEXAMETHASONE 4 MG TABLET PO SCH (08:38)
[2020-01-23] MEDS: ASCORBIC ACID 500 MG TABLET PO SCH ×2 (08:38→20:40)
[2020-01-23] MEDS: ZINC GLUCONATE 50 MG TABLET PO SCH (08:38)
[2020-01-23] MEDS: ASPIRIN EC 81 MG TABLET PO SCH (08:38)
[2020-01-23] MEDS: FOLIC ACID 1 MG TABLET PO SCH (08:39)
[2020-01-23] MEDS: METOPROLOL SUCCINATE XL 25 MG TABLET PO SCH ×2 (08:39→20:42)
[2020-01-23] MEDS: PANTOPRAZOLE 40 MG TABLET PO SCH (08:39)
[2020-01-23] MEDS: FERROUS SULFATE 325 MG TABLET PO SCH ×4 (08:39→20:40)
[2020-01-23] MEDS ORDERED: CYANOCOBALAMIN 5000 MCG SL SCH (09:00)
[2020-01-23] MEDS: METOCLOPRAMIDE 10 MG TABLET PO SCH ×3 (11:41→20:39)
[2020-01-23] MEDS: ENOXAPARIN 30 MG/0.3 ML SYRINGE SUBCUT SCH (12:01)
[2020-01-23] MEDS: ATORVASTATIN 40 MG TABLET PO SCH (20:40)
[2020-01-24 05:44] LABS: Basophils % 0.2 % (0.0-0.8); Hematocrit 35.7 VOL% (35.7-47.0); Hemoglobin 11.5 GM/DL (12.0-16.0); Immature Granulocytes % 0.6 %; Immature Granulocytes Absolute 0.04 #; Lymphocytes # 1.5 10*3/uL (1.4-4.0); Lymphocytes % 23.3 % (21.3-54.2); Mean Corpuscular HGB Conc 32.2 GM/DL (32-36); Mean Platelet Volume 10.8 FL (9.6-12.0); Monocytes % 7.1 % (1.7-12.7); Neutrophils % 68.8 % (38.7-73.9); Platelet Count 399 T/CUMM (130-400); Red Blood Count 4.25 MC/CUMM (3.8-5.5); Red Cell Distribution Width 17.1 % (9.3-17.3); White Blood Count 6.2 T/CUMM (4-12)
[2020-01-24 06:13] LABS: Calcium 7.7 MG/DL (8.5-10.1); Osmolality,Calculated 291.1 MOS/KG (273-304)
[2020-01-24] MEDS: INSULIN LISPRO 100 UNIT/ML SUBCUT SCH ×4 (08:18→21:57)
[2020-01-24] MEDS: SODIUM CHLORIDE 0.9% 1,000 ML IV SCH ×2 (08:40→18:15)
[2020-01-24] MEDS ORDERED: ERGOCALCIFEROL 50,000 UNIT CAPSULE PO SCH (09:00)
[2020-01-24] MEDS: DEXAMETHASONE 4 MG TABLET PO SCH (09:05)
[2020-01-24] MEDS: FOLIC ACID 1 MG TABLET PO SCH (09:05)
[2020-01-24] MEDS: ASCORBIC ACID 500 MG TABLET PO SCH ×2 (09:05→21:57)
[2020-01-24] MEDS: METOCLOPRAMIDE 10 MG TABLET PO SCH ×4 (09:05→21:57)
[2020-01-24] MEDS: METOPROLOL SUCCINATE XL 25 MG TABLET PO SCH ×2 (09:05→21:57)
[2020-01-24] MEDS: PANTOPRAZOLE 40 MG TABLET PO SCH (09:05)
[2020-01-24] MEDS: ZINC GLUCONATE 50 MG TABLET PO SCH (09:06)
[2020-01-24] MEDS: ASPIRIN EC 81 MG TABLET PO SCH (09:07)
[2020-01-24] MEDS: FERROUS SULFATE 325 MG TABLET PO SCH ×3 (09:07→22:02)
[2020-01-24] MEDS: ENOXAPARIN 30 MG/0.3 ML SYRINGE SUBCUT SCH (13:53)
[2020-01-24] MEDS: ATORVASTATIN 40 MG TABLET PO SCH (21:57)
[2020-01-25] MEDS: SODIUM CHLORIDE 0.9% 1,000 ML IV SCH (03:54)
[2020-01-25 05:32] LABS: Basophils % 0.1 % (0.0-0.8); Hemoglobin 10.8 GM/DL (12.0-16.0); Immature Granulocytes % 0.7 %; Immature Granulocytes Absolute 0.07 #; Lymphocytes # 2.6 10*3/uL (1.4-4.0); Lymphocytes % 25.4 % (21.3-54.2); Mean Corpuscular HGB Conc 32.7 GM/DL (32-36); Mean Corpuscular Volume 82.5 FL (87-102); Monocytes % 7.9 % (1.7-12.7); Neutrophils % 65.9 % (38.7-73.9); Platelet Count 450 T/CUMM (130-400); Red Cell Distribution Width 16.9 % (9.3-17.3); White Blood Count 10.3 T/CUMM (4-12)
[2020-01-25 05:55] LABS: Albumin 1.3 G/DL (3.4-5.0); Bilirubin,Total 0.9 MG/DL (0.2-1.0); Calcium 7.5 MG/DL (8.5-10.1); Total Protein 4.8 G/DL (6.4-8.3)
[2020-01-25] MEDS: INSULIN LISPRO 100 UNIT/ML SUBCUT SCH ×2 (08:15→12:51)
[2020-01-25] MEDS: ZINC GLUCONATE 50 MG TABLET PO SCH (09:14)
[2020-01-25] MEDS: ASPIRIN EC 81 MG TABLET PO SCH (09:14)
[2020-01-25] MEDS: METOCLOPRAMIDE 10 MG TABLET PO SCH ×2 (09:14→12:52)
[2020-01-25] MEDS: PANTOPRAZOLE 40 MG TABLET PO SCH (09:14)
[2020-01-25] MEDS: METOPROLOL SUCCINATE XL 25 MG TABLET PO SCH (09:14)
[2020-01-25] MEDS: DEXAMETHASONE 4 MG TABLET PO SCH (09:14)
[2020-01-25] MEDS: ASCORBIC ACID 500 MG TABLET PO SCH (09:14)
[2020-01-25] MEDS: FOLIC ACID 1 MG TABLET PO SCH (09:14)
[2020-01-25] MEDS: FERROUS SULFATE 325 MG TABLET PO SCH (09:15)
[2020-01-25 11:49] VITALS: BP 159/85
[2020-01-25] MEDS: ENOXAPARIN 30 MG/0.3 ML SYRINGE SUBCUT SCH (12:44)
== END 2020-01-25 13:48 | disposition home health service (06) | DRG 682 ==
LOC: N.ED 10:31 → N.EDINP 14:42 → SUATTDRO 14:42 → N.2E 15:53
PROVIDERS: ADMIT Hospitalist; ATTEND Family Medicine

== ENCOUNTER 2021-11-15 08:12 | Observation (INO) ==
[2021-11-15] MEDS ORDERED: ONDANSETRON 4 MG/2 ML VIAL IV STA (09:04)
[2021-11-15] MEDS ORDERED: PANTOPRAZOLE 40 MG VIAL IV STA (09:04)
[2021-11-15] MEDS ORDERED: SODIUM CHLORIDE 0.9% 500 ML IV STA (09:04)
[2021-11-15 09:11] LABS: Basophils # 0.1 10*3/uL (0.0-0.2); Basophils % 0.5 % (0.0-0.8); Eosinophils # 0.1 10*3/uL (0.0-0.87); Eosinophils % 0.5 % (0.00-10.9); Hematocrit 35.2 VOL% (35.7-47.0); Hemoglobin 11.3 GM/DL (12.0-16.0); Immature Granulocytes % 0.3 %; Immature Granulocytes Absolute 0.03 #; Lymphocytes # 2.5 10*3/uL (1.4-4.0); Lymphocytes % 23.7 % (21.3-54.2); Mean Corpuscular HGB Conc 32.1 GM/DL (32-36); Mean Corpuscular Volume 89.6 FL (87-102); Mean Platelet Volume 11.6 FL (9.6-12.0); Monocytes # 0.4 10*3/uL (0.11-0.8); Monocytes % 3.9 % (1.7-12.7); Neutrophils % 71.1 % (38.7-73.9); Platelet Count 274 T/CUMM (130-400); Red Blood Count 3.93 MC/CUMM (3.8-5.5); Red Cell Distribution Width 14.2 % (9.3-17.3); White Blood Count 10.4 T/CUMM (4-12)
[2021-11-15 09:28] LABS: Alanine Aminotransferase 16 U/L (13-56); Albumin 2.3 G/DL (3.4-5.0); Alkaline Phosphatase 122 U/L (45-117); Aspartate Amino Transferase 14 U/L (0-37); Bilirubin,Total < 0.39 MG/DL (0.20-1.00); Blood Urea Nitrogen 46 MG/DL (7-18); Calcium 8.7 MG/DL (8.5-10.1); Carbon Dioxide 29 MMOL/L (21-32); Chloride 102 MMOL/L (98-107); Glucose 145 MG/DL (74-106); Osmolality,Calculated 293.4 MOS/KG (273-304); Potassium 3.3 MMOL/L (3.5-5.1); Sodium 140 MMOL/L (136-145); Total Protein 7.2 G/DL (6.4-8.2)
[2021-11-15 10:03] LABS: PT Patient Result 10.6 SECS (10.1-12.1)
[2021-11-15] MEDS ORDERED: DOCUSATE SODIUM 100 MG CAPSULE PO PRN (10:22)
[2021-11-15] MEDS ORDERED: GLUCAGON 1 MG VIAL IM PRN (10:22)
[2021-11-15] MEDS ORDERED: ACETAMINOPHEN 325 MG TABLET PO PRN (10:22)
[2021-11-15] MEDS ORDERED: hydrALAZINE 20 MG/1 ML VIAL IV PRN (10:24)
[2021-11-15] MEDS ORDERED: DEXTROSE 10% 250 ML BAG IV PRN (10:27)
[2021-11-15] MEDS ORDERED: GABAPENTIN 300 MG CAPSULE PO PRN (12:05)
[2021-11-15] MEDS ORDERED: NITROGLYCERIN SL 0.4 MG TABLET SL PRN (12:05)
[2021-11-15] MEDS ORDERED: ONDANSETRON 4 MG/2 ML VIAL IV PRN (12:48)
[2021-11-15] MEDS: SODIUM CHLORIDE 0.9% 1,000 ML IV SCH (15:11)
[2021-11-15] MEDS: FOLIC ACID 1 MG TABLET PO SCH (20:35)
[2021-11-15] MEDS: PRAZOSIN 1 MG CAPSULE PO SCH (20:35)
[2021-11-15] MEDS: METOPROLOL SUCCINATE XL 50 MG TABLET PO SCH (20:35)
[2021-11-16] MEDS: SODIUM CHLORIDE 0.9% 1,000 ML IV SCH ×2 (02:31→11:09)
[2021-11-16 05:07] LABS: Basophils # 0.1 10*3/uL (0.0-0.2); Basophils % 0.5 % (0.0-0.8); Eosinophils # 0.1 10*3/uL (0.0-0.87); Eosinophils % 1.1 % (0.00-10.9); Hematocrit 31.2 VOL% (35.7-47.0); Hemoglobin 9.8 GM/DL (12.0-16.0); Immature Granulocytes % 0.4 %; Immature Granulocytes Absolute 0.04 #; Lymphocytes # 2.4 10*3/uL (1.4-4.0); Lymphocytes % 24.9 % (21.3-54.2); Mean Corpuscular HGB Conc 31.4 GM/DL (32-36); Mean Corpuscular Volume 92.6 FL (87-102); Mean Platelet Volume 11.3 FL (9.6-12.0); Monocytes # 0.6 10*3/uL (0.11-0.8); Monocytes % 5.8 % (1.7-12.7); Neutrophils % 67.3 % (38.7-73.9); Platelet Count 315 T/CUMM (130-400); Red Blood Count 3.37 MC/CUMM (3.8-5.5); Red Cell Distribution Width 14.4 % (9.3-17.3); White Blood Count 9.5 T/CUMM (4-12)
[2021-11-16 05:20] LABS: Calcium 7.7 MG/DL (8.5-10.1); Osmolality,Calculated 294.4 MOS/KG (273-304); Potassium 3.6 MMOL/L (3.5-5.1)
[2021-11-16 06:01] LABS: Hepatitis B Core IgM Quant 0.14 Index; Hepatitis B Surface Ag Quant < 0.10 Index; Hepatitis B Surface Ag Result Non-Reactive (NonReactive); Hepatitis C Virus Ab Quant < 0.02 Index; Hepatitis C Virus Ab Result Non-Reactive (NonReactive)
[2021-11-16] MEDS ORDERED: LEVOTHYROXINE 50 MCG TABLET PO SCH (06:30)
[2021-11-16] MEDS: FOLIC ACID 1 MG TABLET PO SCH (08:07)
[2021-11-16] MEDS: PRAZOSIN 1 MG CAPSULE PO SCH (08:07)
[2021-11-16] MEDS: METOPROLOL SUCCINATE XL 50 MG TABLET PO SCH (08:08)
[2021-11-16] MEDS ORDERED: EZETIMIBE 10 MG TABLET PO SCH (09:00)
[2021-11-16] MEDS ORDERED: ASPIRIN EC 81 MG TABLET PO SCH (09:00)
[2021-11-16] MEDS ORDERED: ROSUVASTATIN 20 MG TABLET PO SCH (09:00)
[2021-11-16] MEDS ORDERED: LOSARTAN 50 MG TABLET PO SCH (09:00)
[2021-11-16] MEDS ORDERED: CYANOCOBALAMIN 500 MCG TABLET PO SCH (09:00)
[2021-11-16 11:40] VITALS: BP 102/56
[2021-11-19] MEDS ORDERED: ERGOCALCIFEROL 50,000 UNIT CAPSULE PO SCH (12:05)
== END 2021-11-16 13:35 | disposition home or self-care (01) ==
LOC: N.ED 08:12 → INTOOBSV 10:23 → SUATTDRO 10:23 → N.EDINP 10:23 → N.3E 11:53
PROVIDERS: ADMIT Internal Medicine; ATTEND Internal Medicine

== ENCOUNTER 2022-02-06 07:45 | Inpatient (IN) ==
[2022-02-06] MEDS ORDERED: SODIUM CHLORIDE 0.9% 500 ML IV STA (08:11)
[2022-02-06] MEDS ORDERED: ONDANSETRON 4 MG/2 ML VIAL IV STA (08:11)
[2022-02-06 09:24] LABS: Albumin 2.3 G/DL (3.4-5.0); Bilirubin,Total 0.4 MG/DL (0.20-1.00); Osmolality,Calculated 296.9 MOS/KG (273-304); Potassium 3.7 MMOL/L (3.5-5.1); Total Protein 7.1 G/DL (6.4-8.2)
[2022-02-06] MEDS ORDERED: INSULIN REGULAR 100 UNIT/ML IV STA (09:27)
[2022-02-06 09:59] LABS: Basophils % 0.3 % (0.0-0.8); Hematocrit 39.1 VOL% (35.7-47.0); Hemoglobin 12.4 GM/DL (12.0-16.0); Immature Granulocytes % 0.4 %; Immature Granulocytes Absolute 0.05 #; Lymphocytes # 0.8 10*3/uL (1.4-4.0); Lymphocytes % 6.3 % (21.3-54.2); Mean Corpuscular HGB Conc 31.7 GM/DL (32-36); Mean Corpuscular Volume 88.3 FL (87-102); Mean Platelet Volume 11.8 FL (9.6-12.0); Monocytes # 0.4 10*3/uL (0.11-0.8); Monocytes % 3.2 % (1.7-12.7); Neutrophils % 89.8 % (38.7-73.9); Platelet Count 342 T/CUMM (130-400); Red Blood Count 4.43 MC/CUMM (3.8-5.5); Red Cell Distribution Width 13.3 % (9.3-17.3); White Blood Count 12.8 T/CUMM (4-12)
[2022-02-06 10:31] LABS: Bilirubin,Urine Negative (Negative); Blood, Urine Negative (Negative); Glucose,Urine (UA) >=500 mg/dL (Negative); Ketones,Urine Negative (Negative); Mucus,Urine Occasional /LPF (Occasional); Nitrite,Urine Negative (Negative); Protein,Urine >=500 mg/dL (Negative); RBC,Urine 1 /HPF (0-4); Squamous Epithelial Cell,Urine Occasional /HPF (0-10); Urine Appearance CLEAR (Clear); Urine Color Yellow (Yellow); Urine Specific Gravity 1.015 (1.001-1.035); Urine Urobilinogen < 2.0 eU/dL (<2.0)
[2022-02-06] MEDS ORDERED: DOCUSATE SODIUM 100 MG CAPSULE PO PRN (10:35)
[2022-02-06] MEDS ORDERED: ACETAMINOPHEN 325 MG TABLET PO PRN (10:35)
[2022-02-06] MEDS ORDERED: ALUMINUM/MAGNES/SIMETH MAX STR 30 ML UDCUP PO PRN (10:35)
[2022-02-06] MEDS ORDERED: LACTULOSE 20 GM/30 ML UDCUP PO PRN (10:35)
[2022-02-06] MEDS ORDERED: ONDANSETRON 4 MG/2 ML VIAL IV PRN (10:35)
[2022-02-06] MEDS ORDERED: SODIUM CHLORIDE 0.9% 500 ML IV ONE ×2 (10:41→12:24)
[2022-02-06] MEDS ORDERED: hydrALAZINE 20 MG/1 ML VIAL IV PRN (10:44)
[2022-02-06] MEDS ORDERED: MAGNESIUM SULF RIDER 2 GM/50 ML PREMIX IV PRN (11:11)
[2022-02-06] MEDS ORDERED: MAGNESIUM SULF RIDER 4 GM/100 ML PREMIX IV PRN (11:11)
[2022-02-06] MEDS: SODIUM CHLORIDE 0.9% 1,000 ML IV SCH (13:02)
[2022-02-06] MEDS: PANTOPRAZOLE 40 MG VIAL IV SCH (13:02)
[2022-02-06] MEDS: HEPARIN 5,000 UNIT/1 ML VIAL SUBCUT SCH (13:02)
[2022-02-06] MEDS: INSULIN GLARGINE 100 UNIT/ML SUBCUT SCH (13:10)
[2022-02-06] MEDS: INSULIN LISPRO 100 UNIT/ML SUBCUT SCH ×2 (14:45→19:08)
[2022-02-07] MEDS: HEPARIN 5,000 UNIT/1 ML VIAL SUBCUT SCH ×3 (00:13→23:12)
[2022-02-07] MEDS ORDERED: INSULIN LISPRO 100 UNIT/ML SUBCUT SCH ×2 (00:30)
[2022-02-07 06:02] LABS: Basophils % 0.4 % (0.0-0.8); Eosinophils % 0.2 % (0.00-10.9); Hematocrit 36.4 VOL% (35.7-47.0); Hemoglobin 11.6 GM/DL (12.0-16.0); Immature Granulocytes % 0.3 %; Immature Granulocytes Absolute 0.03 #; Lymphocytes # 2.1 10*3/uL (1.4-4.0); Lymphocytes % 23.3 % (21.3-54.2); Mean Corpuscular HGB Conc 31.9 GM/DL (32-36); Mean Corpuscular Volume 87.9 FL (87-102); Mean Platelet Volume 11.2 FL (9.6-12.0); Monocytes # 1.3 10*3/uL (0.11-0.8); Monocytes % 14.3 % (1.7-12.7); Neutrophils % 61.5 % (38.7-73.9); Platelet Count 268 T/CUMM (130-400); Red Blood Count 4.14 MC/CUMM (3.8-5.5); Red Cell Distribution Width 13.3 % (9.3-17.3)
[2022-02-07 06:38] LABS: Bilirubin,Total 0.4 MG/DL (0.20-1.00); Calcium 7.7 MG/DL (8.5-10.1); Osmolality,Calculated 286.7 MOS/KG (273-304); Potassium 3.2 MMOL/L (3.5-5.1); Thyroid Stimulating Hormone 0.999 uIU/ml (0.358-3.74); Total Protein 6.3 G/DL (6.4-8.2)
[2022-02-07] MEDS: LEVOTHYROXINE 100 MCG VIAL IV SCH (06:39)
[2022-02-07] MEDS: INSULIN LISPRO 100 UNIT/ML SUBCUT SCH ×5 (06:41→23:11)
[2022-02-07] MEDS: SODIUM CHLORIDE 0.9% 1,000 ML IV SCH (09:56)
[2022-02-07] MEDS: PANTOPRAZOLE 40 MG VIAL IV SCH (10:02)
[2022-02-07] MEDS: INSULIN GLARGINE 100 UNIT/ML SUBCUT SCH (12:00)
[2022-02-08] MEDS: INSULIN LISPRO 100 UNIT/ML SUBCUT SCH ×4 (03:11→12:30)
[2022-02-08] MEDS: SODIUM CHLORIDE 0.9% 1,000 ML IV SCH (03:26)
[2022-02-08 05:17] LABS: Basophils % 0.4 % (0.0-0.8); Eosinophils % 0.3 % (0.00-10.9); Hematocrit 36.8 VOL% (35.7-47.0); Hemoglobin 11.9 GM/DL (12.0-16.0); Immature Granulocytes % 0.3 %; Immature Granulocytes Absolute 0.02 #; Lymphocytes # 2.6 10*3/uL (1.4-4.0); Lymphocytes % 34.8 % (21.3-54.2); Mean Corpuscular HGB Conc 32.3 GM/DL (32-36); Mean Corpuscular Volume 87.4 FL (87-102); Mean Platelet Volume 11.4 FL (9.6-12.0); Monocytes # 0.7 10*3/uL (0.11-0.8); Monocytes % 9.4 % (1.7-12.7); Neutrophils % 54.8 % (38.7-73.9); Platelet Count 275 T/CUMM (130-400); Red Blood Count 4.21 MC/CUMM (3.8-5.5); Red Cell Distribution Width 13.2 % (9.3-17.3); White Blood Count 7.3 T/CUMM (4-12)
[2022-02-08 05:32] LABS: Calcium 8.2 MG/DL (8.5-10.1); Osmolality,Calculated 287.7 MOS/KG (273-304)
[2022-02-08] MEDS: LEVOTHYROXINE 100 MCG VIAL IV SCH (06:03)
[2022-02-08] MEDS ORDERED: POTASSIUM CHLORIDE 20 MEQ TABLET PO SCH (09:00)
[2022-02-08] MEDS: PANTOPRAZOLE 40 MG VIAL IV SCH (10:26)
[2022-02-08 11:27] VITALS: BP 160/99
[2022-02-08] MEDS: HEPARIN 5,000 UNIT/1 ML VIAL SUBCUT SCH (12:31)
[2022-02-09] MEDS ORDERED: PANTOPRAZOLE 40 MG TABLET PO SCH (09:00)
== END 2022-02-08 15:33 | disposition home or self-care (01) | DRG 637 ==
LOC: N.ED 07:45 → N.EDINP 10:35 → SUATTDRO 10:35 → OBSVTOIN 10:35 → INTOOBSV 10:35 → N.EDINP 12:01 → N.TELEN 12:24
PROVIDERS: ADMIT Internal Medicine; ATTEND Hospitalist

== ENCOUNTER 2022-04-09 08:15 | Observation (INO) ==
[2022-04-09] MEDS ORDERED: ONDANSETRON 4 MG/2 ML VIAL IV STA ×2 (09:39→09:40)
[2022-04-09 10:19] LABS: Basophils % 0.2 % (0.0-0.8); Eosinophils % 0.2 % (0.00-10.9); Hematocrit 33.5 VOL% (35.7-47.0); Immature Granulocytes % 0.4 %; Immature Granulocytes Absolute 0.06 #; Lymphocytes # 1.8 10*3/uL (1.4-4.0); Lymphocytes % 12.3 % (21.3-54.2); Mean Corpuscular HGB Conc 32.8 GM/DL (32-36); Mean Corpuscular Volume 89.3 FL (87-102); Mean Platelet Volume 11.8 FL (9.6-12.0); Monocytes # 0.7 10*3/uL (0.11-0.8); Monocytes % 5.2 % (1.7-12.7); Neutrophils % 81.7 % (38.7-73.9); Platelet Count 240 T/CUMM (130-400); Red Blood Count 3.75 MC/CUMM (3.8-5.5); Red Cell Distribution Width 14.3 % (9.3-17.3); White Blood Count 14.2 T/CUMM (4-12)
[2022-04-09 10:39] LABS: Alanine Aminotransferase 17 U/L (13-56); Albumin 2.4 G/DL (3.4-5.0); Alkaline Phosphatase 151 U/L (45-117); Aspartate Amino Transferase 14 U/L (0-37); Bilirubin,Total < 0.39 MG/DL (0.20-1.00); Blood Urea Nitrogen 36 MG/DL (7-18); Calcium 8.1 MG/DL (8.5-10.1); Carbon Dioxide 33 MMOL/L (21-32); Chloride 93 MMOL/L (98-107); Glucose 383 MG/DL (74-106); Osmolality,Calculated 296.8 MOS/KG (273-304); Potassium 3.1 MMOL/L (3.5-5.1); Sodium 137 MMOL/L (136-145)
[2022-04-09] MEDS ORDERED: INSULIN REGULAR 100 UNIT/ML SUBCUT STA (11:18)
[2022-04-09] MEDS ORDERED: ACETAMINOPHEN 325 MG TABLET PO PRN (12:47)
[2022-04-09] MEDS ORDERED: GLUCAGON 1 MG VIAL IM PRN (12:51)
[2022-04-09] MEDS ORDERED: LACTATED RINGERS 1,000 ML IV SCH (13:00)
[2022-04-09] MEDS ORDERED: DEXTROSE 10% 250 ML BAG IV PRN (13:04)
[2022-04-09] MEDS: INSULIN LISPRO 100 UNIT/ML SUBCUT SCH ×2 (18:11→21:00)
[2022-04-09] MEDS: PANTOPRAZOLE 40 MG VIAL IV SCH (21:01)
[2022-04-09] MEDS: ONDANSETRON 4 MG/2 ML VIAL IV PRN (21:02)
[2022-04-09] MEDS: METOPROLOL SUCCINATE XL 100 MG TABLET PO SCH (21:05)
[2022-04-10 05:48] LABS: Basophils % 0.2 % (0.0-0.8); Eosinophils # 0.1 10*3/uL (0.0-0.87); Eosinophils % 0.8 % (0.00-10.9); Hemoglobin 10.1 GM/DL (12.0-16.0); Immature Granulocytes % 0.5 %; Immature Granulocytes Absolute 0.07 #; Lymphocytes # 3.8 10*3/uL (1.4-4.0); Lymphocytes % 28.9 % (21.3-54.2); Mean Corpuscular HGB Conc 32.6 GM/DL (32-36); Mean Corpuscular Volume 89.9 FL (87-102); Mean Platelet Volume 11.3 FL (9.6-12.0); Monocytes # 0.8 10*3/uL (0.11-0.8); Monocytes % 5.9 % (1.7-12.7); Neutrophils % 63.7 % (38.7-73.9); Platelet Count 246 T/CUMM (130-400); Red Blood Count 3.45 MC/CUMM (3.8-5.5); Red Cell Distribution Width 14.5 % (9.3-17.3); White Blood Count 13.2 T/CUMM (4-12)
[2022-04-10 06:07] LABS: Osmolality,Calculated 287.5 MOS/KG (273-304); Potassium 2.8 MMOL/L (3.5-5.1)
[2022-04-10] MEDS: INSULIN LISPRO 100 UNIT/ML SUBCUT SCH ×3 (08:14→16:08)
[2022-04-10] MEDS: INSULIN GLARGINE 100 UNIT/ML SUBCUT SCH (08:14)
[2022-04-10] MEDS: metOLazone 5 MG TABLET PO SCH (08:27)
[2022-04-10] MEDS: METOPROLOL SUCCINATE XL 100 MG TABLET PO SCH ×2 (08:28→22:00)
[2022-04-10] MEDS: ROSUVASTATIN 20 MG TABLET PO SCH (08:28)
[2022-04-10] MEDS: LOSARTAN 50 MG TABLET PO SCH (08:28)
[2022-04-10] MEDS: PANTOPRAZOLE 40 MG VIAL IV SCH ×2 (08:29→22:01)
[2022-04-10] MEDS: SODIUM CHLORIDE 0.9% 1,000 ML IV SCH (08:29)
[2022-04-10] MEDS: POTASSIUM CHLORIDE RIDER 10 MEQ/100 ML PREMIX IV SCH ×2 (08:30→12:11)
[2022-04-10] MEDS ORDERED: POTASSIUM CHLORIDE 20 MEQ TABLET PO ONE ×2 (10:08→12:37)
[2022-04-10] MEDS: ONDANSETRON 4 MG/2 ML VIAL IV PRN (11:06)
[2022-04-10 17:39] LABS: Calcium 7.9 MG/DL (8.5-10.1); Osmolality,Calculated 288.2 MOS/KG (273-304)
[2022-04-11] MEDS ORDERED: POTASSIUM CHLORIDE 20 MEQ TABLET PO ONE (01:00)
[2022-04-11] MEDS: INSULIN LISPRO 100 UNIT/ML SUBCUT SCH ×2 (01:08→07:57)
[2022-04-11] MEDS: INSULIN GLARGINE 100 UNIT/ML SUBCUT SCH (08:36)
[2022-04-11] MEDS: ROSUVASTATIN 20 MG TABLET PO SCH (08:36)
[2022-04-11] MEDS: LOSARTAN 50 MG TABLET PO SCH (08:36)
[2022-04-11] MEDS: METOPROLOL SUCCINATE XL 100 MG TABLET PO SCH (08:37)
[2022-04-11] MEDS: metOLazone 5 MG TABLET PO SCH (08:37)
[2022-04-11] MEDS: PANTOPRAZOLE 40 MG VIAL IV SCH (08:44)
[2022-04-11] MEDS ORDERED: LIDOCAINE 2% 5 ML VIAL ONE (09:54)
[2022-04-11] MEDS ORDERED: METOPROLOL TARTRATE 5 MG/5 ML VIAL IV ONE (09:54)
[2022-04-11] MEDS: SODIUM CHLORIDE 0.9% 1,000 ML IV SCH (09:54)
[2022-04-11] MEDS ORDERED: propofoL 200 MG/20 ML VIAL IV ONE ×2 (09:54→10:07)
[2022-04-11 12:14] VITALS: BP 196/89
== END 2022-04-11 13:23 | disposition home or self-care (01) ==
LOC: N.EDINP 08:15 → MERGE 08:15 → N.ED 08:15 → N.2W 13:34
PROVIDERS: ADMIT Internal Medicine; ATTEND Internal Medicine